=== PATIENT | female | born 1970 | race African-American/Black ===

== ENCOUNTER 2018-08-24 11:34 | Inpatient (IN) | payer OTHER ==
--- NOTE | 2018-08-24 12:00 | PDOC ---
History of Present Illness - General Chief Complaint: Edema Stated Complaint: SWELLING History Source: Patient - History of Present Illness Initial Comments: 08/24/18 12:18 The patient is a 48 year old female with a PMH of HTN, HLD (stopped taking medication 1-2 months previous), BPD, Opioid abuse (on methadone) who presents to the ED today c/o 1 week h/o swelling. States she first noticed the swelling last week with her R hand and R foot and has subsequently started to spread to her L foot. Extremities are tender to palpation and patient states she feels an aching pain when she moves. No chest pain, shortness of breath, palpitations. No known h/o of hypercoagulability including previous clots or family history of blood clots. No recent travel/immobilization or OCP use States she some L neck swelling 2-3 years previous but can't recall any prescribed treatment. ROS is positive for intermittent sharp L breast pain for the previous 4 months which is being evaluated by her PMD. The patient denies abdominal pain, nausea/vomiting, diarrhea/constipation, dysuria/hematuria, NKDA Social: h/o opoid dependence (on 80 methadone daily), 2 beers daily, denies nicotine PMD: Dr. Haim Ye As per EMR, patient was last evaluated in our ED in 2012 for abdominal pain at which time CT scan showed colitis. Previous neck U/S in 2017 showed L sided enlarged lymph node (2.5 x1.2 cm). Past History - Past Medical History Allergies/Adverse Reactions: Allergies Allergy/AdvReac Type Severity Reaction Status Date / Time No Known Allergies Allergy Verified 08/24/18 11:53 Home Medications: Ambulatory Orders Hydrochlorothiazide [Hctz -] 12.5 mg PO DAILY #0 cap 05/20/13 Methadone [Dolophine -] 70 mg PO DAILY #0 tab.disper 05/20/13 Omeprazole [Prilosec (RX)] 40 mg PO DAILY #0 capsule. 05/20/13 Ranitidine HCl [Zantac] 150 mg PO BID PRN #10 tablet 05/20/13 Simvastatin [Zocor -] 10 mg PO HS #0 tablet 05/20/13 Citalopram Hydrobromide [Celexa -] 20 mg PO DAILY #30 tablet 06/17/18 Quetiapine Fumarate [Seroquel] 100 mg PO DAILY #30 tablet 06/17/18 Quetiapine Fumarate [Seroquel] 300 mg PO HS #30 tablet 06/17/18 hydrOXYzine PAMOATE [Vistaril -] 25 mg PO Q8H PRN #30 capsule 06/17/18 Citalopram Hydrobromide [Celexa -] 20 mg PO DAILY #30 tablet 08/19/18 Quetiapine Fumarate [Seroquel] 100 tab PO HS #90 tablet 08/19/18 Anemia: Yes COPD: No GI Disorders: Yes (gerd) HTN: Yes Hypercholesterolemia: Yes - Surgical History Neurologic Surgery: Yes (R ganglion cyst removed) - Immunization History Immunization Up to Date: Yes - Suicide/Smoking/Psychosocial Hx Smoking History: Never smoked Have you smoked in the past 12 months: Yes Number of Cigarettes Smoked Daily: 10 Hx Alcohol Use: No Drug/Substance Use Hx: No Substance Use Type: Alcohol, Cocaine, Heroin Hx Substance Use Treatment: Yes ([facility], [facility]) Review of Systems - Review of Systems Constitutional: No: Chills, Fever HEENTM: No: Blurred Vision, Recent change in vision, Double Vision Respiratory: No: Cough, Orthopnea, Shortness of Breath, Wheezing Cardiac (ROS): Yes: Edema. No: Chest Pain, Lightheadedness, Palpitations, Syncope ABD/GI: No: Constipated, Diarrhea, Nausea, Vomiting : No: Burning, Dysuria *Physical Exam - Vital Signs Last Vital Signs Temp Pulse Resp BP Pulse Ox 98.1 F 76 17 116/61 99 08/24/18 11:54 08/24/18 11:54 08/24/18 11:54 08/24/18 11:54 08/24/18 11:54 - Physical Exam General Appearance: Yes: Nourished, Obese HEENT: positive: Normal Voice, Hearing Grossly Normal Neck: positive: Trachea midline, Supple Respiratory/Chest: positive: Lungs Clear, Normal Breath Sounds. negative: Labored Respiration, Rapid RR Cardiovascular: positive: S1, S2, Edema (2+ RLE pitting edema, RUE edema with B/ L UE and LE TTP). negative: Murmur Vascular Pulses: Femoral (R): 2+, Femoral (L): 2+ Gastrointestinal/Abdominal: positive: Normal Bowel Sounds, Soft Extremity: positive: Normal Capillary Refill Integumentary: positive: Normal Color, Dry, Warm Neurologic: positive: Fully Oriented, Alert Moderate Sedation - Procedure Monitoring Vital Signs: Procedure Monitoring Vital Signs Temperature 98.1 F 08/24/18 11:54 Pulse Rate 76 08/24/18 11:54 Respiratory Rate 17 08/24/18 11:54 Blood Pressure 116/61 08/24/18 11:54 O2 Sat by Pulse Oximetry (%) 99 08/24/18 11:54 ED Treatment Course - LABORATORY CBC & Chemistry Diagram: 08/24/18 13:09 08/24/18 13:09 Medical Decision Making - Medical Decision Making 08/24/18 12:36 48 year old female c/o ansacara in unilateral UE > LE pattern. H/o lymphadenopathy. VS unremarkable. Mild RUE/RLE edema including RLE pitting edema. Frontal diagnosis: malignancy, r/o DVT, also consider cirrhosis, nephrotic syndrome, consider acute onset CHF (less likely given VS, clinical presentation). Will obtain B/L LE Duplex, RUE Duplex, Basic labs. Reassess. 08/24/18 14:09 CBC unremarkable AST/ALT 2:1 c/w chronic alcoholism Elevated Alk Phos possibly indicative of malignancy BNP mildly elevated (260.5) - non-specific edematous state 08/24/18 16:[address] Nickerson, RUE DVT in lower 1/3 brachial vein 08/24/18 16:27 Lovenox 100 SQ Patient @ CT Case d/w Dr. Pedro (covers for patient's PMD, Dr. Ye) will admit for further evaluation; requests Dr. Barone for oncology 08/24/18 17:19 Patient reassed @ bedside VSS Counseled on plan of care including admission. CT reads pending. *DC/Admit/Observation/Transfer Diagnosis at time of Disposition: Edema - Discharge Dispostion Disposition: HOME Condition at time of disposition: Fair Decision to Admit order: Yes - Referrals - Patient Instructions - Post Discharge Activity
--- NOTE | 2018-08-24 12:23 | PDOC ---
Attending Attestation - HPI HPI: 08/24/18 13:17 The patient is a 48 year old female with a past medical history of HTN, HLD, bipolar disorder, an opioid dependence (on methadone) who presents to the emergency department for evaluation of a 1 week history of swelling in her extremities. Patient reports onset of swelling in right arm and right leg occurred last week, and is currently experiencing swelling in her left arm and foot. Patient endorses pain with movement of her extremities. She reports intermittent episodes of mild chest pain radiating to her back for the last 4 months. Denies shortness of breath, recent travels, headache, and family history of blood clots. Patient endorses EtOH use. - Medical Decision Making 08/24/18 13:17 Documentation prepared by Liam Jerez, acting as dental assistant medical assistant for Nereyda Gilbert MD. <Liam Jerez - Last Filed: 08/24/18 13:27> - Resident Resident Name: Yohan Stillica - ED Attending Attestation I have performed the following: I have examined & evaluated the patient, The case was reviewed & discussed with the resident, I agree w/resident's findings & plan, Exceptions are as noted - Physicial Exam PE: GENERAL: Awake, alert, and fully oriented, in no acute distress HEAD: No signs of trauma EYES: PERRLA, EOMI, sclera anicteric, conjunctiva clear ENT: Auricles normal inspection, hearing grossly normal, nares patent, oropharynx clear without exudates. Moist mucosa NECK: Normal ROM, supple, no lymphadenopathy, JVD, or masses LUNGS: Breath sounds equal, clear to auscultation bilaterally. No wheezes, and no crackles HEART: Regular rate and rhythm, normal S1 and S2, no murmurs, rubs or gallops ABDOMEN: Soft, nontender, normoactive bowel sounds. No guarding, no rebound. No masses EXTREMITIES: RUE and RLE with 3+ pitting edema. LLE and LUE with 1+ pitting edema. Normal range of motion. No clubbing or cyanosis. No cords, erythema. NEUROLOGICAL: Cranial nerves II through XII grossly intact. Normal speech, normal gait. Motor and sensation intact SKIN: Warm, Dry, normal turgor, no rashes or lesions noted. - Medical Decision Making Pt with unusual pattern of edema- starting in the RUE, then the RLE, then now starting to swelling on the L side. Will obtain dopplers to r/o DVT. Suspect that there may be a central malignancy based on the pattern of the swelling and how it developed. Will obtain CT chest/a/p. <Nereyda Gilbert - Last Filed: 08/24/18 16:20>
[2018-08-24 13:23] LABS: BASO % 2.7 % (0-2.0); EOS % 0.8 % (0-4.5); HEMATOCRIT 37.9 % (32.4-45.2); HEMOGLOBIN 12.1 GM/dL (10.7-15.3); LYMPH % 34.9 % (8-40); MCH 31.7 pg (25.7-33.7); MEAN PLT VOLUME 8.8 fl (7.5-11.1); MONO % 6.3 % (3.8-10.2); NEUT % 55.3 % (42.8-82.8); PLATELET COUNT 215 K/MM3 (134-434); RBC 3.83 M/mm3 (3.60-5.2); RDW 17.5 % (11.6-15.6)
[2018-08-24 13:41] LABS: INR 1.12 (0.83-1.09); PROTHROMBIN TIME (PATIENT) 13.2 SEC (9.7-13.0)
[2018-08-24 13:44] LABS: ACTIVATED PTT 28.5 SECONDS (25.2-36.5)
[2018-08-24 14:03] LABS: ALBUMIN 2.8 g/dl (3.4-5.0); ALK PHOS 770 U/L (45-117); ANION GAP 10 MMOL/L (8-16); BILIRUBIN,TOTAL 1.5 mg/dL (0.2-1); BLOOD UREA NITROGEN 17 mg/dL (7-18); CALCIUM 7.8 mg/dL (8.5-10.1); CHLORIDE 99 mmol/L (98-107); CO2 27 mmol/L (21-32); CREATININE 1.2 mg/dL (0.55-1.3); GLUCOSE,RANDOM 106 mg/dL (74-106); POTASSIUM 3.6 mmol/L (3.5-5.1); SGOT/AST 352 U/L (15-37); SGPT/ALT 198 U/L (13-61); SODIUM 136 mmol/L (136-145); TOT PROT 6.9 g/dl (6.4-8.2)
[2018-08-24 16:48] LABS: N-TERMINAL BNP 260.5 pg/ml (5-125)
[2018-08-24] MEDS ORDERED: ENOXAPARIN NA (PORCINE) 100 MG/1 ML DISP.SYRIN SQ ONE ×2 (18:03→18:13)
[2018-08-24] MEDS ORDERED: ENOXAPARIN NA (PORCINE) 100 MG/1 ML DISP.SYRIN SQ SCH (22:00)
[2018-08-25 02:55] VITALS: BMI 38.7
[2018-08-25] MEDS ORDERED: HEPARIN NA (PORCINE) 5,000 UNITS/ML 1ML VIAL SQ SCH (10:00)
[2018-08-25] MEDS ORDERED: PANTOPRAZOLE 40 MG TABLET (FP) PO SCH (10:00)
[2018-08-25] MEDS ORDERED: METHADONE HCL 40 MG DISPERSABLE TABLET PO SCH (10:00)
[2018-08-25] MEDS: HYDROCHLOROTHIAZIDE 12.5 MG CAPSULE (FP) PO SCH (10:28)
[2018-08-25] MEDS: CITALOPRAM HYDROBROMIDE 20 MG TABLET (FP) PO SCH (10:28)
[2018-08-25] MEDS: QUEtiapine FUMARATE 100 MG TABLET (FP) PO SCH (10:30)
[2018-08-25] MEDS: ENOXAPARIN NA (PORCINE) 100 MG/1 ML DISP.SYRIN SQ SCH ×2 (11:06→21:53)
[2018-08-25] MEDS ORDERED: METHADONE HCL 10 MG TABLET PO SCH (13:45)
--- NOTE | 2018-08-25 14:10 | HP ---
Admitting History and Physical - Admission History of Present Illness: Pt is a 48 year old female with a PMH of HTN, HLD (stopped taking medication 1- 2 months previous), BPD, Opioid abuse (on methadone) who presents to the ED today c/o 1 week h/o swelling of her extremities. States she first noticed the swelling last week with her R hand and R foot and has subsequently started to spread to her L foot. Extremities are tender to palpation and patient states she feels an aching pain when she moves. No chest pain, shortness of breath, palpitations. Pt also admits to drinking 4-5 beers every night. - Past Medical History [employer]: Yes: CVA, Dementia, Migraine, Multiple Sclerosis, Parkinson's, Seizure, Syncope, TIA, Vertigo, Other Cardiovascular: Yes: HTN Gastrointestinal: Yes: GERD ...LMP: 03/30/12 ...: No Heme/Onc: Yes: Anemia Musculoskeletal: Yes: Chronic low back pain - Smoking History Smoking history: Current every day smoker Have you smoked in the past 12 months: Yes Aproximately how many cigarettes per day: 10 - Alcohol/Substance Use Hx Alcohol Use: Yes History of Substance Use: reports: Cocaine, Heroin Home Medications - Allergies Allergies/Adverse Reactions: Allergies Allergy/AdvReac Type Severity Reaction Status Date / Time No Known Allergies Allergy Verified 08/24/18 11:53 - Home Medications Home Medications: Ambulatory Orders Hydrochlorothiazide [Hctz -] 12.5 mg PO DAILY #0 cap 05/20/13 Methadone [Dolophine -] 70 mg PO DAILY #0 tab.disper 05/20/13 Omeprazole [Prilosec (RX)] 40 mg PO DAILY #0 capsule. 05/20/13 Ranitidine HCl [Zantac] 150 mg PO BID PRN #10 tablet 05/20/13 Simvastatin [Zocor -] 10 mg PO HS #0 tablet 05/20/13 Citalopram Hydrobromide [Celexa -] 20 mg PO DAILY #30 tablet 06/17/18 Quetiapine Fumarate [Seroquel] 100 mg PO DAILY #30 tablet 06/17/18 Quetiapine Fumarate [Seroquel] 300 mg PO HS #30 tablet 06/17/18 hydrOXYzine PAMOATE [Vistaril -] 25 mg PO Q8H PRN #30 capsule 06/17/18 Citalopram Hydrobromide [Celexa -] 20 mg PO DAILY #30 tablet 08/19/18 Quetiapine Fumarate [Seroquel] 100 tab PO HS #90 tablet 08/19/18 Family Disease History - Family Disease History Family History: Unremarkable Review of Systems - Review of Systems Constitutional: reports: No Symptoms Eyes: reports: No Symptoms HENT: reports: No Symptoms Neck: reports: No Symptoms Cardiovascular: reports: No Symptoms Respiratory: reports: No Symptoms Gastrointestinal: reports: No Symptoms Physical Examination Vital Signs: Vital Signs Temperature 98.1 F 08/25/18 10:00 Pulse Rate 81 08/25/18 10:00 Respiratory Rate 20 08/25/18 10:00 Blood Pressure 102/50 L 08/25/18 10:00 O2 Sat by Pulse Oximetry (%) 98 08/25/18 09:00 Constitutional: Yes: Well Nourished HENT: Yes: WNL Neck: Yes: WNL, Supple Cardiovascular: Yes: WNL, Regular Rate and Rhythm Respiratory: Yes: WNL, Regular, CTA Bilaterally Gastrointestinal: Yes: WNL, Normal Bowel Sounds, Soft Edema: RUE: 1+, LLE: Trace, RLE: Trace Neurological: Yes: WNL, Alert, Oriented ...Motor Strength: WNL Labs: CBC, BMP 08/24/18 13:09 08/24/18 13:09 Problem List - Problems (1) Deep vein thrombosis (DVT) of right upper extremity Assessment/Plan: DVT of RUE Cont lovenox Heme consult CT scan chest/abd/pelvis was negative for any malignant pathology Code(s): I82.621 - ACUTE EMBOLISM AND THROMBOSIS OF DEEP VEINS OF R UP EXTREM (2) Edema Assessment/Plan: Cardio/vascular consults Check echo Cont Hctz Code(s): R60.9 - EDEMA, UNSPECIFIED (3) Elevated LFTs Assessment/Plan: ?Alcoholic hepatitis Long d/w pt about etoh abstinence Cont to trend LFT's US abdomen Code(s): R94.5 - ABNORMAL RESULTS OF LIVER FUNCTION STUDIES (4) Opioid dependence Assessment/Plan: Cont methadone Code(s): F11.20 - OPIOID DEPENDENCE, UNCOMPLICATED
[2018-08-25] MEDS ORDERED: METHADONE HCL 40 MG DISPERSABLE TABLET ONE (14:11)
[2018-08-25] MEDS ORDERED: METHADONE HCL 10 MG TABLET ONE (14:11)
[2018-08-25] MEDS: METHADONE 80 MG, METHADONE 10 MG PO SCH (14:13)
--- NOTE | 2018-08-25 17:17 | EKG ---
Test Reason : Blood Pressure : / mmHG Vent. Rate : 077 BPM Atrial Rate : 077 BPM P-R Int : 138 ms QRS Dur : 092 ms QT Int : 416 ms P-R-T Axes : 051 000 042 degrees QTc Int : 470 ms NORMAL SINUS RHYTHM NORMAL ECG WHEN COMPARED WITH ECG OF 04-MAY-2013 11:12, NO SIGNIFICANT CHANGE WAS FOUND Confirmed by MD DRU, AGATA ([id number]) on 08/25/2018 5:17:09 PM Referred By: Confirmed By:AGATA GONSALES MD
--- NOTE | 2018-08-25 17:43 | CONSULT ---
Consult Consult Specialty:: Vascular Surgery Reason for Consultation:: Swelling in all four limbs. Now with right arm DVT. - History Source Limitations to Obtaining History: No Limitations - Past Medical History [employer]: Yes: CVA, Dementia, Migraine, Multiple Sclerosis, Parkinson's, Seizure, Syncope, TIA, Vertigo, Other Cardio/Vascular: Yes: HTN Gastrointestinal: Yes: GERD ...LMP: 03/30/12 ...: No Musculoskeletal: Yes: Chronic low back pain Additional Medical History: CHRONIC BACK PAIN - Alcohol/Substance Use Hx Alcohol Use: Yes History of Substance Use: reports: Cocaine, Heroin - Smoking History Smoking history: Current every day smoker Have you smoked in the past 12 months: Yes Aproximately how many cigarettes per day: 10 Home Medications - Allergies Allergies/Adverse Reactions: Allergies Allergy/AdvReac Type Severity Reaction Status Date / Time No Known Allergies Allergy Verified 08/24/18 11:53 - Home Medications Home Medications: Ambulatory Orders Hydrochlorothiazide [Hctz -] 12.5 mg PO DAILY #0 cap 05/20/13 Methadone [Dolophine -] 70 mg PO DAILY #0 tab.disper 05/20/13 Omeprazole [Prilosec (RX)] 40 mg PO DAILY #0 capsule. 05/20/13 Ranitidine HCl [Zantac] 150 mg PO BID PRN #10 tablet 05/20/13 Simvastatin [Zocor -] 10 mg PO HS #0 tablet 05/20/13 Citalopram Hydrobromide [Celexa -] 20 mg PO DAILY #30 tablet 06/17/18 Quetiapine Fumarate [Seroquel] 100 mg PO DAILY #30 tablet 06/17/18 Quetiapine Fumarate [Seroquel] 300 mg PO HS #30 tablet 06/17/18 hydrOXYzine PAMOATE [Vistaril -] 25 mg PO Q8H PRN #30 capsule 06/17/18 Citalopram Hydrobromide [Celexa -] 20 mg PO DAILY #30 tablet 08/19/18 Quetiapine Fumarate [Seroquel] 100 tab PO HS #90 tablet 08/19/18 Review of Systems - Review of Systems Constitutional: reports: No Symptoms Eyes: reports: No Symptoms HENT: reports: No Symptoms Neck: reports: No Symptoms Cardiovascular: reports: No Symptoms Respiratory: reports: No Symptoms Gastrointestinal: reports: No Symptoms Genitourinary: reports: No Symptoms Musculoskeletal: reports: No Symptoms Integumentary: reports: No Symptoms Neurological: reports: No Symptoms Endocrine: reports: No Symptoms Hematology/Lymphatic: reports: No Symptoms Psychiatric: reports: No Symptoms Physical Exam Vital Signs: Vital Signs Temperature 98.2 F 08/25/18 17:11 Pulse Rate 68 08/25/18 17:11 Respiratory Rate 20 08/25/18 17:11 Blood Pressure 90/55 L 08/25/18 17:11 O2 Sat by Pulse Oximetry (%) 98 08/25/18 09:00 Constitutional: Yes: Well Nourished, No Distress, Calm Eyes: Yes: WNL, Conjunctiva Clear, EOM Intact HENT: Yes: WNL, Atraumatic, Normocephalic Neck: Yes: WNL, Supple, Trachea Midline Cardiovascular: Yes: WNL, Regular Rate and Rhythm Respiratory: Yes: WNL, Regular, CTA Bilaterally Gastrointestinal: Yes: WNL, Normal Bowel Sounds ...Rectal Exam: Yes: WNL Renal/: Yes: WNL Breast(s): Yes: WNL Musculoskeletal: Yes: WNL Extremities: Yes: WNL Edema: Yes Peripheral Pulses WNL: Yes Integumentary: Yes: WNL Neurological: Yes: WNL, Alert, Oriented ...Motor Strength: WNL Psychiatric: Yes: WNL Labs: CBC, BMP 08/24/18 13:09 08/24/18 13:09 Problem List - Problems (1) Deep vein thrombosis (DVT) of right upper extremity Assessment/Plan: Pt seen and examined. Bilateral lower extremities with mild swelling. Good pulses. Right arm brachial vein DVT on US. Anticoagulation for three months. Pt can follow up as outpt in vascular clinic to check lower extremity veins for reflux. Pt given card to follow up with phone ariel. Anthony Limon DO Code(s): I82.621 - ACUTE EMBOLISM AND THROMBOSIS OF DEEP VEINS OF R UP EXTREM
--- NOTE | 2018-08-25 18:31 | CONSULT ---
Consult Consult Specialty:: Hematology/oncology Referred by:: Dr. 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 No: CVA, Dementia, Migraine, Multiple Sclerosis, Peripheral Neuropathy, Parkinson's, Seizure, Syncope, TIA, Vertigo Cardio/Vascular: Yes: HTN Gastrointestinal: Yes: GERD ...LMP Comment: irregular periods x several yrs ...: No ...: 0 ...Para: 0 Psych: Yes: Anxiety Musculoskeletal: No: Chronic low back pain, Hemiparesis, Hemiplegia, Osteoarthritis Additional Medical History: CHRONIC BACK PAIN - Past Surgical History Additional Surgical History: ganglion cyst removal right hand - Alcohol/Substance Use Hx Alcohol Use: Yes (3 beers daily) Number of Drinks Daily: 3 History of Substance Use: reports: Cocaine, Heroin - Smoking History Smoking history: Current every day smoker Have you smoked in the past 12 months: Yes Aproximately how many cigarettes per day: 5 - Social History Usual Living Arrangement: With Spouse Occupation: not working Home Medications - Allergies Allergies/Adverse Reactions: Allergies Allergy/AdvReac Type Severity Reaction Status Date / Time No Known Allergies Allergy Verified 08/24/18 11:53 - Home Medications Home Medications: Ambulatory Orders Hydrochlorothiazide [Hctz -] 12.5 mg PO DAILY #0 cap 05/20/13 Methadone [Dolophine -] 70 mg PO DAILY #0 tab.disper 05/20/13 Omeprazole [Prilosec (RX)] 40 mg PO DAILY #0 capsule. 05/20/13 Ranitidine HCl [Zantac] 150 mg PO BID PRN #10 tablet 05/20/13 Simvastatin [Zocor -] 10 mg PO HS #0 tablet 05/20/13 Citalopram Hydrobromide [Celexa -] 20 mg PO DAILY #30 tablet 06/17/18 Quetiapine Fumarate [Seroquel] 100 mg PO DAILY #30 tablet 06/17/18 Quetiapine Fumarate [Seroquel] 300 mg PO HS #30 tablet 06/17/18 hydrOXYzine PAMOATE [Vistaril -] 25 mg PO Q8H PRN #30 capsule 06/17/18 Citalopram Hydrobromide [Celexa -] 20 mg PO DAILY #30 tablet 08/19/18 Quetiapine Fumarate [Seroquel] 100 tab PO HS #90 tablet 08/19/18 Family Disease History - Family Disease History Family Disease History: Heart Disease: Mother, Other: Grandparent (MGF- throat ca ), Father (gunshot ) Review of Systems - Review of Systems Constitutional: denies: Chills, Fever, Night Sweats Eyes: denies: Blurred Vision, Double Vision, Photophobia HENT: reports: Difficult Swallowing, Throat Pain. denies: Epistaxis, Hearing Loss Neck: denies: Stiffness, Swollen Glands, Tenderness Cardiovascular: denies: Chest Pain, Palpitations, Shortness of Breath Respiratory: denies: SOB, SOB on Exertion, Wheezing Gastrointestinal: reports: Constipation. denies: Diarrhea, Nausea, Vomiting Genitourinary: denies: Burning, Dysuria Breasts: reports: No Symptoms Reported, Other (recent mammography reportedly negative) Musculoskeletal: reports: Extremity Pain Integumentary: reports: No Symptoms Endocrine: reports: No Symptoms Hematology/Lymphatic: denies: Easily Bruised, Excessive Bleeding, Swollen Glands Psychiatric: reports: Anxiety Physical Exam Vital Signs: Vital Signs Temperature 98.2 F 08/25/18 17:11 Pulse Rate 68 08/25/18 17:11 Respiratory Rate 20 08/25/18 17:11 Blood Pressure 90/55 L 08/25/18 17:11 O2 Sat by Pulse Oximetry (%) 98 08/25/18 09:00 Constitutional: Yes: No Distress Eyes: Yes: PERRL. No: Ptosis, Sclera Icterus HENT: Yes: Normocephalic, Thrush, Other (thrush). No: Hoarseness, Pharyngeal Erythema Neck: Yes: Supple, Trachea Midline. No: Lymphadenopathy, Tenderness, Thyromegaly Cardiovascular: Yes: Regular Rate and Rhythm Respiratory: Yes: Regular Gastrointestinal: Yes: Normal Bowel Sounds, Soft. No: Hepatomegaly, Splenomegaly Renal/: No: CVA Tenderness - Left, CVA Tenderness - Right Breast(s): Yes: WNL, Left, Right Musculoskeletal: No: Back Pain, Muscle Pain Extremities: No: Calf Tenderness Edema: Yes Edema: RUE: 1+, LLE: 1+, RLE: 1+ Integumentary: No: Bruising, Venous Stasis Changes Neurological: Yes: WNL ...Motor Strength: WNL Psychiatric: Yes: WNL Labs: CBC, BMP 08/24/18 13:09 08/24/18 13:09 Imaging - Results Cat Scan: Report Reviewed Ultrasound: Report Reviewed Problem List - Problems (1) Deep vein thrombosis (DVT) of right upper extremity Assessment/Plan: DVT - RUE brachial vein. CT chest abdomen and pelvis - no malignancy--atelectasis- RML, coronary calcification , hepatomegaly States had EGD and Colonoscopy within previous year and mammogram within past year- all unremarkable. No control . No RUE trauma. No family history of blood clots, strokes, pulmonary emboli. RUE DVT in brachial vein. A/C for 3 months reasonable. Malignancy work up Thrombophilia work up Code(s): I82.621 - ACUTE EMBOLISM AND THROMBOSIS OF DEEP VEINS OF R UP EXTREM
--- NOTE | 2018-08-25 18:41 | CON.CARD ---
Consult Consult Specialty:: Cardiology Referred by:: Dr. Pedro Reason for Consultation:: DVT - History of Present Illness Chief Complaint: Diffuse edema History of Present Illness: 48 F, on methadone, hx HTN presented to ER with diffuse edema of arms and legs. LE edema and right hand edema for several days. Found to have RUE DVT on US. She denies immobilization, trauma. Chronic TOVAR for at least several months. Atypical fleeting chest pain lasting seconds, related to positional change. No CP w/ exertion. No palpitations. No PND or orthopnea. Has been seen by Vascular and Heme. - History Source History Provided By: Patient, Medical Record - Past Medical History HUMAN RESOURCES INTERN: No: CVA, Dementia, Migraine, Multiple Sclerosis, Peripheral Neuropathy, Parkinson's, Seizure, Syncope, TIA, Vertigo Cardio/Vascular: Yes: HTN, Hyperlipdemia Gastrointestinal: Yes: GERD Hepatobiliary: Yes: Other (fatty liver) ...LMP: 03/30/12 ...LMP Comment: irregular periods x several yrs ...: No Psych: Yes: Anxiety Musculoskeletal: No: Chronic low back pain, Hemiparesis, Hemiplegia, Osteoarthritis Additional Medical History: CHRONIC BACK PAIN - Past Surgical History Additional Surgical History: ganglion cyst removal right hand - Alcohol/Substance Use Hx Alcohol Use: Yes (3 beers daily) Number of Drinks Daily: 3 History of Substance Use: reports: Cocaine, Heroin - Smoking History Smoking history: Current every day smoker Have you smoked in the past 12 months: Yes Aproximately how many cigarettes per day: 5 - Social History Usual Living Arrangement: With Spouse Occupation: not working History of Recent Travel: No Home Medications - Allergies Allergies/Adverse Reactions: Allergies Allergy/AdvReac Type Severity Reaction Status Date / Time No Known Allergies Allergy Verified 08/24/18 11:53 - Home Medications Home Medications: Ambulatory Orders Hydrochlorothiazide [Hctz -] 12.5 mg PO DAILY #0 cap 05/20/13 Methadone [Dolophine -] 70 mg PO DAILY #0 tab.disper 05/20/13 Omeprazole [Prilosec (RX)] 40 mg PO DAILY #0 capsule. 05/20/13 Ranitidine HCl [Zantac] 150 mg PO BID PRN #10 tablet 05/20/13 Simvastatin [Zocor -] 10 mg PO HS #0 tablet 12/05/13 Citalopram Hydrobromide [Celexa -] 20 mg PO DAILY #30 tablet 06/17/18 Quetiapine Fumarate [Seroquel] 100 mg PO DAILY #30 tablet 06/17/18 Quetiapine Fumarate [Seroquel] 300 mg PO HS #30 tablet 06/17/18 hydrOXYzine PAMOATE [Vistaril -] 25 mg PO Q8H PRN #30 capsule 06/17/18 Citalopram Hydrobromide [Celexa -] 20 mg PO DAILY #30 tablet 08/19/18 Quetiapine Fumarate [Seroquel] 100 tab PO HS #90 tablet 08/19/18 Family Disease History - Family Disease History Family Disease History: Heart Disease: Mother, Other: Grandparent (MGF- throat ca ), Father (gunshot ) Review of Systems Findings/Remarks: he patient is a 48 year old female with a PMH of HTN, HLD (stopped taking medication 1-2 months previous), BPD, Opioid abuse (on methadone) who presents to the ED today c/o 1 week h/o swelling. States she first noticed the swelling last week with her R hand and R foot and has subsequently started to spread to her L foot. Extremities are tender to palpation and patient states she feels an aching pain when she moves. No chest pain, shortness of breath, palpitations. No known h/o of hypercoagulability including previous clots or family history of blood clots. No recent travel/immobilization or OCP use States she some L neck swelling 2-3 years previous but can't recall any prescribed treatment. ROS is positive for intermittent sharp L breast pain for the previous 4 months which is being evaluated by her PMD. The patient denies abdominal pain, nausea/vomiting, diarrhea/constipation, dysuria/hematuria, - Review of Systems Constitutional: reports: No Symptoms Cardiovascular: reports: Edema Respiratory: reports: Exercise Intolerance Gastrointestinal: denies: No Symptoms, Abdominal Pain, Bloating, Constipation, Diarrhea, Dysphagia, Indigestion, Melena, Nausea, Rectal Bleeding, Vomiting, Vomiting Blood, Other Genitourinary: denies: No Symptoms, Burning, Discharge, Dysuria, Flank Pain, Frequency, Hematuria, Incontinence, Lesions, Menses, Pain, Testicular Mass, Testicular Pain, Testicular Swelling, Urgency, Vaginal Bleeding, Other Breasts: denies: No Symptoms Reported, See HPI, Breast Implants, Discharge from Nipple, Lumps, Pain, Skin Changes, Other Musculoskeletal: denies: No Symptoms, Back Pain, Crepitus, Decreased ROM, Extremity Pain, Joint Pain, Joint Swelling, Muscle Pain, Muscle Cramps, Muscle Weakness, Other Integumentary: denies: No Symptoms, Blister, Bruising, Change in Color, Eczema, Erythema, Incision, Lesions, Lump, Pallor, Pruritis, Rash, Wound, Other Neurological: denies: No Symptoms, Change in LOC, Change in Speech, Confusion, Dizziness, Headache, Incoordination, Numbness, Parasthesia, Pre-Existing Deficit , Seizure, Syncope, Tremors, Unsteady Gait, Weakness, Other Endocrine: denies: No Symptoms, Excessive Sweating, Flushing, Increased Hunger, Increased Thirst, Intolerance to Cold, Intolerance to Heat, Unexplained Weight Gain, Unexplained Weight Loss, Other Hematology/Lymphatic: denies: No Symptoms, Easily Bruised, Excessive Bleeding, Swollen Glands, Other Psychiatric: denies: No Symptoms, Altered Sleep Pattern, Anxiety, Depression, Hallucinations, Panic, Paranoia, Suicidal, Other - Risk Factors Known Risk Factors: Yes: Hypercholesterolemia, Hypertension, Smoking Vital Signs: Vital Signs Temperature 98.2 F 08/25/18 17:11 Pulse Rate 68 08/25/18 17:11 Respiratory Rate 20 08/25/18 17:11 Blood Pressure 90/55 L 08/25/18 17:11 O2 Sat by Pulse Oximetry (%) 98 08/25/18 09:00 Constitutional: Yes: No Distress, Calm Eyes: Yes: Conjunctiva Clear, EOM Intact HENT: Yes: Atraumatic, Normocephalic Neck: Yes: Trachea Midline Respiratory: Yes: CTA Bilaterally Gastrointestinal: Yes: Soft, Abdomen, Obese Cardiovascular: Yes: Regular Rate and Rhythm JVD: No Carotid Bruit: No PMI: Non-Displaced Heart Sounds: Yes: S1, S2 Edema: Yes Edema: RUE: 1+, LLE: Trace, RLE: Trace Peripheral Pulses WNL: Yes Neurological: Yes: Alert, Oriented ...Motor Strength: WNL - Other Data Labs, Other Data: CBC, BMP 08/24/18 13:09 08/24/18 13:09 INR, PTT INR 1.12 (0.83-1.09) H 08/24/18 13:09 NSR, NSST changes Imaging - Results Cat Scan: Report Reviewed Ultrasound: Report Reviewed EKG: Image Reviewed Assessment/Plan IMP: Upper extremity DVT History of HTN History of HLD with fatty liver Obesity Methadone maintenance REC: 1. Continued AC as per Heme and Vascular. Can likely convert to NOAC prior to discharge. 2. Etiology of the DVT not entirely clear, possibly related to opiate use; Heme evaluation pending. 3. Echocardiogram for RV/LV assessment and for assessment of PA pressure- low suspicion for pulmonary embolism (normal O2 sat and absence of tachycardia). 4. Fatty liver on imaging, low dose statin being used. Follow LFTS, will need GI follow up. 5. ECG with borderline QTc (Methadone); will repeat in AM.
[2018-08-25] MEDS ORDERED: QUEtiapine FUMARATE 100 MG TABLET (FP) ONE (20:54)
[2018-08-25] MEDS: ATORVASTATIN CA 10 MG TABLET (FP) PO SCH (21:54)
[2018-08-25] MEDS: QUEtiapine FUMARATE 300 MG TABLET PO SCH (21:54)
[2018-08-25] MEDS: NYSTATIN 500,000 UNITS TABLET PO SCH (21:55)
[2018-08-25] MEDS: DOCUSATE SODIUM 100 MG CAPSULE (FP) PO SCH (21:55)
[2018-08-25 21:56] LABS: MCH 32.5 pg (25.7-33.7)
[2018-08-25 22:06] LABS: BASO % 0.7 % (0-2.0); EOS % 2.5 % (0-4.5); HEMATOCRIT 33.2 % (32.4-45.2); HEMOGLOBIN 10.9 GM/dL (10.7-15.3); LYMPH % 50.7 % (8-40); MEAN CELL VOLUME 98.6 fl (80-96); MEAN PLT VOLUME 10.2 fl (7.5-11.1); MONO % 6.5 % (3.8-10.2); NEUT % 39.6 % (42.8-82.8); PLATELET COUNT 156 K/MM3 (134-434); RBC 3.36 M/mm3 (3.60-5.2); RDW 16.8 % (11.6-15.6); WHITE BLOOD COUNT 5.4 K/mm3 (4.0-10.0)
[2018-08-25 22:32] LABS: ALBUMIN 2.5 g/dl (3.4-5.0); ALK PHOS 681 U/L (45-117); ANION GAP 9 MMOL/L (8-16); BILIRUBIN,TOTAL 1.4 mg/dL (0.2-1); BLOOD UREA NITROGEN 9 mg/dL (7-18); CALCIUM 7.8 mg/dL (8.5-10.1); CHLORIDE 102 mmol/L (98-107); CO2 28 mmol/L (21-32); GLUCOSE,RANDOM 112 mg/dL (74-106); POTASSIUM 3.3 mmol/L (3.5-5.1); SGOT/AST 443 U/L (15-37); SGPT/ALT 227 U/L (13-61); SODIUM 139 mmol/L (136-145); TOT PROT 6.3 g/dl (6.4-8.2)
[2018-08-26] MEDS ORDERED: METHADONE HCL 40 MG DISPERSABLE TABLET ONE ×2 (05:40→10:29)
[2018-08-26] MEDS ORDERED: METHADONE HCL 10 MG TABLET ONE ×2 (05:40→10:29)
[2018-08-26] MEDS: METHADONE 80 MG, METHADONE 10 MG PO SCH ×2 (05:56→10:34)
[2018-08-26 07:13] LABS: BASO % 0.7 % (0-2.0); HEMATOCRIT 31.1 % (32.4-45.2); HEMOGLOBIN 10.1 GM/dL (10.7-15.3); LYMPH % 55.3 % (8-40); MCH 31.7 pg (25.7-33.7); MCHC 32.4 g/dl (32.0-36.0); MEAN CELL VOLUME 97.9 fl (80-96); MEAN PLT VOLUME 8.9 fl (7.5-11.1); MONO % 6.8 % (3.8-10.2); NEUT % 35.2 % (42.8-82.8); PLATELET COUNT 165 K/MM3 (134-434); RBC 3.18 M/mm3 (3.60-5.2); WHITE BLOOD COUNT 5.4 K/mm3 (4.0-10.0)
[2018-08-26] MEDS: DOCUSATE SODIUM 100 MG CAPSULE (FP) PO SCH ×3 (07:36→22:28)
[2018-08-26 07:44] LABS: ALBUMIN 2.3 g/dl (3.4-5.0); ALK PHOS 593 U/L (45-117); ANION GAP 6 MMOL/L (8-16); BILIRUBIN,TOTAL 1.4 mg/dL (0.2-1); BLOOD UREA NITROGEN 8 mg/dL (7-18); CALCIUM 7.5 mg/dL (8.5-10.1); CHLORIDE 100 mmol/L (98-107); CO2 30 mmol/L (21-32); CREATININE 0.8 mg/dL (0.55-1.3); GLUCOSE,RANDOM 95 mg/dL (74-106); SGOT/AST 342 U/L (15-37); SGPT/ALT 207 U/L (13-61); SODIUM 137 mmol/L (136-145); TOT PROT 5.9 g/dl (6.4-8.2)
--- NOTE | 2018-08-26 08:45 | CON.GI ---
Consult Consult Specialty:: GI Referred by:: Dr. Pedro Reason for Consultation:: Elevated LFTs - History of Present Illness Chief Complaint: Elevated LFTs History of Present Illness: Patient is a 48 y/o female with past medical history of HLD, HTN, BPD, Opioid abuse (on Methadone). I was consulted to see the patient due to elevated LFTs. On admission lab works shows severely elevated LFTs. Abdominal and Pelvic CT scan show diffuse fatty infiltration of liver with no obvious mass lesion. Patient in past was taking a statin for HLD but states she has not taken it in awhile. She admits to chronic alcohol use with drinking 2-3 24oz cans of beer a day for "many years". Patient complains of experiencing dysphagia with both solids and liquids, last endoscopy as per patient 1 year ago. She cannot remember the doctors name but says the results were "fine". She states experiencing heartburn accompanied with early satiety and 2-3 episodes of vomiting prior to presenting to ER. Patient complains of constipation with incomplete evacuation with last BM 2 weeks ago. Over 3 months patient states she has lost 15lbs. Denies rectal bleeding, melena, blood in stool. 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: Yes: CVA, Dementia, Migraine, Multiple Sclerosis, Parkinson's, Seizure, Syncope, TIA, Vertigo, Other Cardio/Vascular: Yes: HTN Gastrointestinal: Yes: GERD Hepatobiliary: Yes: Other (fatty liver) ...LMP: 03/30/12 ...LMP Comment: irregular periods x several yrs ...: No Psych: Yes: Anxiety Musculoskeletal: Yes: Chronic low back pain Additional Medical History: CHRONIC BACK PAIN - Past Surgical History Past Surgical History: Yes: Colonoscopy (2-3 yrs ago as per pt) Additional Surgical History: ganglion cyst removal right hand - Alcohol/Substance Use Hx Alcohol Use: Yes Number of Drinks Daily: 3 History of Substance Use: reports: Cocaine, Heroin - Smoking History Smoking history: Current every day smoker Have you smoked in the past 12 months: Yes Aproximately how many cigarettes per day: 10 - Social History Usual Living Arrangement: With Spouse Occupation: not working History of Recent Travel: No Home Medications - Allergies Allergies/Adverse Reactions: Allergies Allergy/AdvReac Type Severity Reaction Status Date / Time No Known Allergies Allergy Verified 08/24/18 11:53 - Home Medications Home Medications: Ambulatory Orders Hydrochlorothiazide [Hctz -] 12.5 mg PO DAILY #0 cap 05/20/13 Methadone [Dolophine -] 70 mg PO DAILY #0 tab.disper 05/20/13 Omeprazole [Prilosec (RX)] 40 mg PO DAILY #0 capsule. 05/20/13 Ranitidine HCl [Zantac] 150 mg PO BID PRN #10 tablet 05/20/13 Simvastatin [Zocor -] 10 mg PO HS #0 tablet 05/20/13 Citalopram Hydrobromide [Celexa -] 20 mg PO DAILY #30 tablet 06/17/18 Quetiapine Fumarate [Seroquel] 100 mg PO DAILY #30 tablet 06/17/18 Quetiapine Fumarate [Seroquel] 300 mg PO HS #30 tablet 06/17/18 hydrOXYzine PAMOATE [Vistaril -] 25 mg PO Q8H PRN #30 capsule 06/17/18 Citalopram Hydrobromide [Celexa -] 20 mg PO DAILY #30 tablet 08/19/18 Quetiapine Fumarate [Seroquel] 100 tab PO HS #90 tablet 08/19/18 Family Disease History - Family Disease History Family Disease History: Heart Disease: Mother, Other: Grandparent (MGF- throat ca ), Father (gunshot ) Review of Systems - Review of Systems Constitutional: reports: No Symptoms Eyes: reports: No Symptoms HENT: reports: No Symptoms Neck: reports: No Symptoms Cardiovascular: reports: Chest Pain Respiratory: reports: No Symptoms Gastrointestinal: reports: Constipation, Dysphagia, Vomiting, Other (heart burn) Genitourinary: reports: No Symptoms Breasts: reports: No Symptoms Reported Musculoskeletal: reports: No Symptoms Integumentary: reports: No Symptoms Neurological: reports: No Symptoms Endocrine: reports: No Symptoms Hematology/Lymphatic: reports: No Symptoms Psychiatric: reports: No Symptoms Physical Exam-GI Vital Signs: Vital Signs Temperature 98.1 F 08/26/18 07:08 Pulse Rate 73 08/26/18 07:08 Respiratory Rate 20 08/26/18 07:08 Blood Pressure 125/74 08/26/18 07:08 O2 Sat by Pulse Oximetry (%) 98 08/25/18 21:00 Constitutional: Yes: No Distress, Calm Eyes: Yes: Conjunctiva Clear HENT: Yes: Atraumatic Cardiovascular: Yes: Regular Rate and Rhythm Respiratory: Yes: Regular, CTA Bilaterally Gastrointestinal Inspection: Yes: WNL. No: Ascites, Distention, Hernia, Scars, Other ...Auscultate: Yes: Normoactive Bowel Sounds ...Palpate: Yes: Soft, Tenderness (RUQ, LUQ, LLQ). No: Firm/Rigid, Guarding, Hepatomegaly, Mass, Pulsatile Mass, Splenomegaly, Tenderness, Epigastium, Tenderness, Rebound, Other ...Percussion: Yes: Tympanitic. No: Dullness, Fluid Wave, Other Edema: Yes (RUE and RLE) Neurological: Yes: Alert, Oriented Psychiatric: Yes: Alert, Oriented Labs: CBC, BMP 08/26/18 06:00 08/26/18 06:00 INR, PTT INR 1.12 (0.83-1.09) H 08/24/18 13:09 Active Medications Generic Name Dose Route Start Last Admin Trade Name Gian PRN Reason Stop Dose Admin Atorvastatin Calcium 10 mg 08/25/18 22:00 08/25/18 21:54 Lipitor - PO 10 mg HS ALAN Administration Citalopram Hydrobromide 20 mg 08/25/18 10:00 08/25/18 10:28 Celexa - PO 20 mg DAILY ALAN Administration Docusate Sodium 100 mg 08/25/18 22:00 08/26/18 07:36 Colace - PO Not Given TID ALAN Enoxaparin Sodium 100 mg 08/25/18 10:00 08/25/18 21:53 Lovenox - SQ 100 mg BID ALAN Administration Hydrochlorothiazide 12.5 mg 08/25/18 10:00 08/25/18 10:28 Hctz - PO 12.5 mg DAILY ALAN Administration Methadone HCl 80 mg/ Methadone 90 mg 08/25/18 14:15 08/26/18 05:56 HCl 10 mg PO Not Given 0600 ALAN Nystatin 500,000 unit 08/25/18 22:00 08/25/18 21:55 Nystatin PO 500,000 unit TID ALAN Administration Pantoprazole Sodium 40 mg 08/25/18 10:00 08/25/18 10:28 Protonix - PO 40 mg DAILY ALAN Administration Quetiapine Fumarate 100 mg 08/25/18 10:00 08/25/18 10:30 Seroquel - PO 100 mg DAILY ALAN Administration Quetiapine Fumarate 300 mg 08/25/18 22:00 08/25/18 21:54 Seroquel - PO 300 mg HS ALAN Administration Problem List - Problems (1) Constipation Assessment/Plan: R>start on Relistor 12mg SQ daily Code(s): K59.00 - CONSTIPATION, UNSPECIFIED (2) Elevated LFTs Assessment/Plan: R>Hepatitis A & B panel, Hep C antibody >AFP, CA 125, CA 19-9, CEA >pending results of Abdominal US Code(s): R94.5 - ABNORMAL RESULTS OF LIVER FUNCTION STUDIES (3) Heartburn Assessment/Plan: R> start on Protonix 40mg IVPB BID >NS at 100cc/hr Code(s): R12 - HEARTBURN
[2018-08-26] MEDS ORDERED: POTASSIUM CHLORIDE TABS 20 MEQ TABLET.ER (FP) PO ONE (09:15)
[2018-08-26] MEDS ORDERED: PANTOPRAZOLE SODIUM 40 MG in SODIUM CHLORIDE 100 ML IVPB SCH (10:00)
--- NOTE | 2018-08-26 10:21 | PN ---
Physical Exam: SUBJECTIVE: Patient seen and examined. She has no complaints. OBJECTIVE: Vital Signs Period Temp Pulse Resp BP Sys/Hernandez Pulse Ox Last 24 Hr 98.1 F-98.2 F 68-73 20-20 90-125/55-74 98 GENERAL: The patient is awake, alert, and fully oriented, in no acute distress. LUNGS: Breath sounds equal, clear to auscultation bilaterally, no wheezes, no crackles, no accessory muscle use. HEART: Regular rate and rhythm, S1, S2 without murmur, rub or gallop. ABDOMEN: Obese, soft, nontender, nondistended, normoactive bowel sounds, no guarding, no rebound, no hepatosplenomegaly, no masses. EXTREMITIES: 2+ pulses, warm, well-perfused. Trace edema RLE. RUE swollen. Laboratory Results - last 24 hr 08/25/18 08/25/18 08/26/18 21:30 21:30 06:00 WBC 5.4 5.4 RBC 3.36 L 3.18 L Hgb 10.9 10.1 L Hct 33.2 31.1 L MCV 98.6 H 97.9 H MCH 32.5 31.7 MCHC 33.0 32.4 RDW 16.8 H 17.0 H Plt Count 156 D 165 MPV 10.2 D 8.9 D Absolute Neuts (auto) 2.1 1.9 Neutrophils % 39.6 L D 35.2 L Lymphocytes % 50.7 H D 55.3 H Monocytes % 6.5 6.8 Eosinophils % 2.5 D 2.0 Basophils % 0.7 0.7 Nucleated RBC % 1 H 1 H Sodium 139 Potassium 3.3 L Chloride 102 Carbon Dioxide 28 Anion Gap 9 BUN 9 Creatinine 1.0 Creat Clearance w eGFR 58.93 Random Glucose 112 H Calcium 7.8 L Total Bilirubin 1.4 H AST 443 H ALT 227 H Alkaline Phosphatase 681 H Total Protein 6.3 L Albumin 2.5 L 08/26/18 06:00 WBC RBC Hgb Hct MCV MCH MCHC RDW Plt Count MPV Absolute Neuts (auto) Neutrophils % Lymphocytes % Monocytes % Eosinophils % Basophils % Nucleated RBC % Sodium 137 Potassium 3.0 L Chloride 100 Carbon Dioxide 30 Anion Gap 6 L BUN 8 Creatinine 0.8 Creat Clearance w eGFR > 60 Random Glucose 95 Calcium 7.5 L Total Bilirubin 1.4 H AST 342 H ALT 207 H Alkaline Phosphatase 593 H Total Protein 5.9 L Albumin 2.3 L Active Medications Generic Name Dose Route Start Last Admin Trade Name Gian PRN Reason Stop Dose Admin Atorvastatin Calcium 10 mg 08/25/18 22:00 08/25/18 21:54 Lipitor - PO 10 mg HS ALAN Administration Citalopram Hydrobromide 20 mg 08/25/18 10:00 08/25/18 10:28 Celexa - PO 20 mg DAILY ALAN Administration Docusate Sodium 100 mg 08/25/18 22:00 08/26/18 07:36 Colace - PO Not Given TID ALAN Enoxaparin Sodium 100 mg 08/25/18 10:00 08/25/18 21:53 Lovenox - SQ 100 mg BID AALN Administration Hydrochlorothiazide 12.5 mg 08/25/18 10:00 08/25/18 10:28 Hctz - PO 12.5 mg DAILY ALAN Administration Potassium Chloride 10 meq in 100 mls @ 100 mls/hr 08/26/18 09:30 Potassium Chloride 10 Meq Premix Ivpb - IVPB 08/26/18 12:29 Q60M ALAN Sodium Chloride 1,000 mls @ 100 mls/hr 08/26/18 09:30 Normal Saline - IV ASDIR ALAN Methadone HCl 80 mg/ Methadone 90 mg 08/26/18 09:00 HCl 10 mg PO DAILY@0900 ALAN Methylnaltrexone [place] 12 mg 08/26/18 10:00 Relistor - SQ DAILY ALAN Nystatin 500,000 unit 08/25/18 22:00 08/25/18 21:55 Nystatin PO 500,000 unit TID ALAN Administration Pantoprazole Sodium 40 mg 08/26/18 10:00 Protonix Iv IVPUSH BID ALAN Quetiapine Fumarate 100 mg 08/25/18 10:00 08/25/18 10:30 Seroquel - PO 100 mg DAILY ALAN Administration Quetiapine Fumarate 300 mg 08/25/18 22:00 08/25/18 21:54 Seroquel - PO 300 mg HS ALAN Administration ASSESSMENT/PLAN: 1. DVT of right upper extremity - Currently on Lovenox - No evidence of malignancy - Hematology follow-up 2. Leg edema - No evidence of DVT - Echo pending 3. Hepatic transaminitis - Hepatitis panel, AFP, CA 125, CA 19-9, CEA, RUQ US pending 4. Opioid dependence - Continue Methadone 5. Constipation, opioid induced - Relistor restarted 6. HTN - Continue HCTZ 7. Hyperlipidemia - Continue Lipitor 8. Obesity with BMI 38.8 9. Bipolar disorder - Continue Celexa, Seroquel Visit type - Emergency Visit Emergency Visit: Yes ED Registration Date: 08/24/18 Care time: The patient presented to the Emergency Department on the above date and was hospitalized for further evaluation of their emergent condition. - New Patient This patient is new to me today: Yes Date on this admission: 08/26/18 - Critical Care Critical Care patient: No - Discharge Referral Referred to [facility] No
[2018-08-26] MEDS ORDERED: PT OWN MED DRAWER 7, Y5N ONE ×3 (10:30→22:08)
[2018-08-26] MEDS: CITALOPRAM HYDROBROMIDE 20 MG TABLET (FP) PO SCH (10:35)
[2018-08-26] MEDS: HYDROCHLOROTHIAZIDE 12.5 MG CAPSULE (FP) PO SCH (10:35)
[2018-08-26] MEDS: QUEtiapine FUMARATE 100 MG TABLET (FP) PO SCH (10:37)
[2018-08-26] MEDS: KCL 10 MEQ IVPB 10 MEQ/100 ML INFUS.BAG IVPB SCH ×3 (10:37→13:53)
[2018-08-26] MEDS: PANTOPRAZOLE SODIUM 40 MG VIAL IVPUSH SCH ×2 (10:38→22:30)
[2018-08-26] MEDS: ENOXAPARIN NA (PORCINE) 100 MG/1 ML DISP.SYRIN SQ SCH ×2 (10:38→22:27)
[2018-08-26] MEDS: Methylnaltrexone Bromide 12 MG/0.6 ML KIT SQ SCH (10:39)
[2018-08-26] MEDS: SODIUM CHLORIDE 1,000 ML IV SCH (11:04)
--- NOTE | 2018-08-26 15:49 | ECHO ---
Name: KRISTIE, PATRICK Exam:Adult Echocardiogram Study Date: 08/26/2018 02:18 PM Age: 48 yrs Reason For Study: EF AND RVSP EVALUTION Height: 66 in Weight: 240 lb BSA: 2.2 m2 MMode/2D Measurements & Calculations IVSd: 0.84 cm Ao root diam: 2.4 cm LVIDd: 4.5 cm LA dimension: 3.1 cm LVIDs: 2.9 cm LVPWd: 0.79 cm EDV(Teich): 90.2 ml LVOT diam: 2.1 cm ESV(Teich): 32.0 ml TAPSE: 2.5 cm Doppler Measurements & Calculations MV E max curtis: 83.4 cm/sec Ao V2 max: 138.1 cm/sec MV A max curtis: 101.7 cm/sec Ao max P.6 mmHg MV E/A: 0.82 Ao V2 mean: 87.7 cm/sec MV dec time: 0.22 sec Ao mean P.7 mmHg Ao V2 VTI: 29.9 cm ABI(I,D): 1.3 cm2 ABI(V,D): 2.1 cm2 LV V1 max P.7 mmHg MR max curtis: 295.9 cm/sec LV V1 mean P.89 mmHg MR max P.0 mmHg LV V1 max: 81.8 cm/sec LV V1 mean: 41.2 cm/sec LV V1 VTI: 11.2 cm SV(LVOT): 39.4 ml Med Peak E' Curtis: 9.1 cm/sec Med E/e': 9.2 Lat Peak E' Curtis: 11.2 cm/sec Lat E/e': 7.4 Procedure The study was technically difficult with many images being suboptimal in quality. Left Ventricle The left ventricular size, thickness and function are normal. The left ventricular ejection fraction is normal. E/A reversal consistent with but not diagnostic of poor LV compliance. Regional wall motion abnormalities cannot be excluded due to limited visualization. Right Ventricle The right ventricle is not well visualized. Atria Normal left and right atrial size and function. Mitral Valve The mitral valve is not well visualized. There is no mitral valve stenosis. There is trace mitral regurgitation. Tricuspid Valve The tricuspid valve is not well visualized. There is no tricuspid stenosis. There was insufficient TR detected to calculate RV systolic pressure. Aortic Valve The aortic valve is not well visualized. No hemodynamically significant valvular aortic stenosis. No aortic regurgitation is present. Pulmonic Valve The pulmonic valve is not well visualized. Great Vessels The aortic root is normal size. Pericardium/Pleura There is no pericardial effusion. Interpretation Summary The left ventricular size, thickness and function are normal The left ventricular ejection fraction is normal. Regional wall motion abnormalities cannot be excluded due to limited visualization. E/A reversal consistent with but not diagnostic of poor LV compliance The study was technically difficult with many images being suboptimal in quality. The right ventricle is not well visualized. There was insufficient TR detected to calculate RV systolic pressure. MD Oumar Warren 08/26/2018 03:49 PM
--- NOTE | 2018-08-26 17:43 | PN ---
Progress Note (short form) - Note Progress Note: Patient seen and examined Complains of RUE discomfort Complains of generalized discomfort in all extremities. no chest pains or SOB Last Vital Signs Temp Pulse Resp BP Pulse Ox 97.8 F 86 20 138/93 98 08/26/18 17:15 08/26/18 17:15 08/26/18 17:15 08/26/18 17:15 08/25/18 21:00 Lungs -clear RSR RUE swelling RUQ fullness CBC, BMP 08/26/18 06:00 08/26/18 06:00 Current Medications Generic Name Dose Route Start Last Admin Trade Name Freq PRN Reason Stop Dose Admin Atorvastatin Calcium 10 mg 08/25/18 22:00 08/25/18 21:54 Lipitor - PO 10 mg HS ALAN Administration Citalopram Hydrobromide 20 mg 08/25/18 10:00 08/26/18 10:35 Celexa - PO 20 mg DAILY ALAN Administration Docusate Sodium 100 mg 08/25/18 22:00 08/26/18 13:53 Colace - PO 100 mg TID ALAN Administration Enoxaparin Sodium 100 mg 08/25/18 10:00 08/26/18 10:38 Lovenox - SQ 100 mg BID ALAN Administration Hydrochlorothiazide 12.5 mg 08/25/18 10:00 08/26/18 10:35 Hctz - PO 12.5 mg DAILY ALAN Administration Sodium Chloride 1,000 mls @ 100 mls/hr 08/26/18 09:30 08/26/18 11:04 Normal Saline - IV 100 mls/hr ASDIR ALAN Administration Methadone HCl 80 mg/ Methadone 90 mg 08/26/18 09:00 08/26/18 10:34 HCl 10 mg PO 90 mg DAILY@0900 ALAN Administration Methylnaltrexone [place] 12 mg 08/26/18 10:00 08/26/18 10:39 Relistor - SQ 12 mg DAILY ALAN Administration Nystatin 500,000 unit 08/25/18 22:00 08/25/18 21:55 Nystatin PO 500,000 unit TID ALAN Administration Pantoprazole Sodium 40 mg 08/26/18 10:00 08/26/18 10:38 Protonix Iv IVPUSH 40 mg BID ALAN Administration Quetiapine Fumarate 100 mg 08/25/18 10:00 08/26/18 10:37 Seroquel - PO 100 mg DAILY ALAN Administration Quetiapine Fumarate 300 mg 08/25/18 22:00 08/25/18 21:54 Seroquel - PO 300 mg HS ALAN Administration Abdominal sono- hepatomegaly - hepatocellular disease vs. fatty liver ; no splenomegaly Impression: Probably worthwhile to screen in hospital for thrombophilia Can bridge to either coumadin or Noac x 3 months.. In view of abnormal LFT's - NOAC may be safer Problem List - Problems (1) Deep vein thrombosis (DVT) of right upper extremity Code(s): I82.621 - ACUTE EMBOLISM AND THROMBOSIS OF DEEP VEINS OF R UP EXTREM
[2018-08-26] MEDS: NYSTATIN 500,000 UNITS TABLET PO SCH ×2 (17:55→22:28)
[2018-08-26] MEDS: QUEtiapine FUMARATE 300 MG TABLET PO SCH (22:28)
[2018-08-26] MEDS: ATORVASTATIN CA 10 MG TABLET (FP) PO SCH (22:28)
[2018-08-27 04:13] LABS: HEPATITIS B CORE ANTIBODY,IGM Negative (Negative)
[2018-08-27] MEDS ORDERED: PT OWN MED DRAWER 7, Y5N ONE ×2 (05:51→09:44)
[2018-08-27] MEDS: NYSTATIN 500,000 UNITS TABLET PO SCH ×4 (05:57→21:58)
[2018-08-27] MEDS: DOCUSATE SODIUM 100 MG CAPSULE (FP) PO SCH ×3 (05:57→21:58)
[2018-08-27] MEDS ORDERED: METHADONE HCL 40 MG DISPERSABLE TABLET ONE (08:30)
[2018-08-27] MEDS ORDERED: METHADONE HCL 10 MG TABLET ONE (08:30)
[2018-08-27] MEDS: METHADONE 80 MG, METHADONE 10 MG PO SCH (08:34)
--- NOTE | 2018-08-27 08:58 | PN ---
GI Progress Note Subjective: Patient examined lying in bed. She states her heartburn is improving after starting pantoprazole IV. States she has vomiting x three episodes yesterday after receiving medication. Denies any further episodes of vomiting since. She says after receiving Relistor she was able to have a small BM. Noted with elevated tumor markers AFP 10.8, CEA 7.8, CA 19-9 47. - Objective Vital Signs: Vital Signs Temperature 98.1 F 08/27/18 06:52 Pulse Rate 82 08/27/18 06:52 Respiratory Rate 20 08/27/18 06:52 Blood Pressure 99/65 08/27/18 06:52 O2 Sat by Pulse Oximetry (%) 98 08/26/18 21:00 Constitutional: Well Nourished, No Distress, Calm Eyes: Yes: Conjunctiva Clear HENT: Yes: Atraumatic Cardiovascular: Yes: Regular Rate and Rhythm Respiratory: Yes: Regular, CTA Bilaterally Gastrointestinal Inspection: Yes: WNL. No: Ascites, Distention, Hernia, Scars, Other ...Auscultate: Yes: Normoactive Bowel Sounds. No: Hyperactive Bowel Sounds, Hypoactive Bowel Sounds, No Bowel Sounds, Other ...Palpate: Yes: Soft, Tenderness (RUQ, LUQ, suprapubic, LLQ) Labs: CBC, BMP 08/26/18 06:00 08/26/18 06:00 INR, PTT INR 1.12 (0.83-1.09) H 08/24/18 13:09 Problem List - Problems (1) Constipation Code(s): K59.00 - CONSTIPATION, UNSPECIFIED (2) Elevated LFTs Code(s): R94.5 - ABNORMAL RESULTS OF LIVER FUNCTION STUDIES (3) Heartburn Code(s): R12 - HEARTBURN
--- NOTE | 2018-08-27 09:22 | PN ---
Progress Note, Physician History of Present Illness: GI FOLLOW UP NOTE Patient examined and case discussed with Dr. Bedolla Patient states that heartburn is improving after starting on pantoprazole IV BID. She complains of vomiting three times after taking her medication, denies further episodes of nausea or vomiting. States Relistor is helping with constipation, admits to having BM after administation. Noted with elevated tumor markers, AFP 10.8, CEA 7.8, CA 19-9 47. LFTs noted to be trending down. Abdominal US shows over distended gallbladder with a small sludge without wall thickening or pericholecystic free fluid. - Current Medication List Current Medications: Active Medications Atorvastatin Calcium (Lipitor -) 10 mg PO HS [facility] Last Admin: 08/26/18 22:28 Dose: 10 mg Citalopram Hydrobromide (Celexa -) 20 mg PO DAILY [facility] Last Admin: 08/26/18 10:35 Dose: 20 mg Docusate Sodium (Colace -) 100 mg PO TID [facility] Last Admin: 08/27/18 05:57 Dose: 100 mg Enoxaparin Sodium (Lovenox -) 100 mg SQ BID [facility] Last Admin: 08/26/18 22:27 Dose: 100 mg Hydrochlorothiazide (Hctz -) 12.5 mg PO DAILY [facility] Last Admin: 08/26/18 10:35 Dose: 12.5 mg Sodium Chloride (Normal Saline -) 1,000 mls @ 100 mls/hr IV ASDIR [facility] Last Admin: 08/26/18 11:04 Dose: 100 mls/hr Methadone HCl 80 mg/ Methadone (HCl 10 mg) 90 mg PO DAILY@0900 [facility] Last Admin: 08/27/18 08:34 Dose: 90 mg Methylnaltrexone [place] (Relistor -) 12 mg SQ DAILY [facility] Last Admin: 08/26/18 10:39 Dose: 12 mg Nystatin (Nystatin) 500,000 unit PO TID [facility] Last Admin: 08/27/18 06:18 Dose: 500,000 unit Pantoprazole Sodium (Protonix Iv) 40 mg IVPUSH BID [facility] Last Admin: 08/26/18 22:30 Dose: 40 mg Quetiapine Fumarate (Seroquel -) 100 mg PO DAILY [facility] Last Admin: 08/26/18 10:37 Dose: 100 mg Quetiapine Fumarate (Seroquel -) 300 mg PO HS [facility] Last Admin: 08/26/18 22:28 Dose: 300 mg - Objective Vital Signs: Vital Signs Temperature 98.1 F 08/27/18 06:52 Pulse Rate 82 08/27/18 06:52 Respiratory Rate 20 08/27/18 06:52 Blood Pressure 99/65 08/27/18 06:52 O2 Sat by Pulse Oximetry (%) 98 08/26/18 21:00 Constitutional: Yes: Well Nourished, No Distress, Calm Eyes: Yes: Conjunctiva Clear HENT: Yes: Atraumatic Cardiovascular: Yes: Regular Rate and Rhythm Respiratory: Yes: Regular, CTA Bilaterally Gastrointestinal: Yes: Normal Bowel Sounds, Soft, Tenderness (RUQ, LUQ, suprapubic and LLQ) Edema: Yes (RUE and RLE) Neurological: Yes: Alert, Oriented Labs: CBC, BMP 08/26/18 06:00 08/26/18 06:00 INR, PTT INR 1.12 (0.83-1.09) H 08/24/18 13:09 Problem List - Problems (1) Unintentional weight loss Assessment/Plan: -elevated tumor markers: AFP 10.8, CEA 7.8, CA 19-9 47 -ordered B/L Breast US but not performed in-patient -will need to follow up with [employer]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
[2018-08-27] MEDS: PANTOPRAZOLE SODIUM 40 MG VIAL IVPUSH SCH ×2 (09:50→21:59)
[2018-08-27] MEDS: HYDROCHLOROTHIAZIDE 12.5 MG CAPSULE (FP) PO SCH (09:50)
[2018-08-27] MEDS: Methylnaltrexone Bromide 12 MG/0.6 ML KIT SQ SCH (09:50)
[2018-08-27] MEDS: QUEtiapine FUMARATE 100 MG TABLET (FP) PO SCH (09:50)
[2018-08-27] MEDS: CITALOPRAM HYDROBROMIDE 20 MG TABLET (FP) PO SCH (09:50)
[2018-08-27] MEDS: ENOXAPARIN NA (PORCINE) 100 MG/1 ML DISP.SYRIN SQ SCH ×2 (09:50→22:00)
--- NOTE | 2018-08-27 10:02 | PN ---
Progress Note, Physician Chief Complaint: K+ was low yesterday; was repleted. Labs reviewed, tumor markers are elevated. History of Present Illness: BP runs low at times. - Current Medication List Current Medications: Active Medications Atorvastatin Calcium (Lipitor -) 10 mg PO HS [facility] Last Admin: 08/26/18 22:28 Dose: 10 mg Citalopram Hydrobromide (Celexa -) 20 mg PO DAILY [facility] Last Admin: 08/27/18 09:50 Dose: 20 mg Docusate Sodium (Colace -) 100 mg PO TID [facility] Last Admin: 08/27/18 05:57 Dose: 100 mg Enoxaparin Sodium (Lovenox -) 100 mg SQ BID [facility] Last Admin: 08/27/18 09:50 Dose: 100 mg Hydrochlorothiazide (Hctz -) 12.5 mg PO DAILY [facility] Last Admin: 08/27/18 09:50 Dose: 12.5 mg Sodium Chloride (Normal Saline -) 1,000 mls @ 100 mls/hr IV ASDIR [facility] Last Admin: 08/26/18 11:04 Dose: 100 mls/hr Methadone HCl 80 mg/ Methadone (HCl 10 mg) 90 mg PO DAILY@0900 [facility] Last Admin: 08/27/18 08:34 Dose: 90 mg Methylnaltrexone [place] (Relistor -) 12 mg SQ DAILY [facility] Last Admin: 08/27/18 09:50 Dose: 12 mg Nystatin (Nystatin) 500,000 unit PO TID [facility] Last Admin: 08/27/18 06:18 Dose: 500,000 unit Pantoprazole Sodium (Protonix Iv) 40 mg IVPUSH BID [facility] Last Admin: 08/27/18 09:50 Dose: 40 mg Quetiapine Fumarate (Seroquel -) 100 mg PO DAILY [facility] Last Admin: 08/27/18 09:50 Dose: 100 mg Quetiapine Fumarate (Seroquel -) 300 mg PO HS [facility] Last Admin: 08/26/18 22:28 Dose: 300 mg - Objective Vital Signs: Vital Signs Temperature 98.1 F 08/27/18 06:52 Pulse Rate 82 08/27/18 06:52 Respiratory Rate 20 08/27/18 06:52 Blood Pressure 99/65 08/27/18 06:52 O2 Sat by Pulse Oximetry (%) 98 08/26/18 21:00 Constitutional: Yes: No Distress, Calm Eyes: Yes: Conjunctiva Clear Cardiovascular: Yes: Regular Rate and Rhythm Respiratory: Yes: CTA Bilaterally (no rales or wheezing.) Gastrointestinal: Yes: Soft, Abdomen, Obese Edema: Yes Edema: RUE: 2+, LLE: Trace, RLE: Trace Neurological: Yes: Alert, Oriented ...Motor Strength: WNL Labs: CBC, BMP 08/26/18 06:00 08/26/18 06:00 INR, PTT INR 1.12 (0.83-1.09) H 08/24/18 13:09 Laboratory Tests 08/26/18 08/26/18 08/26/18 06:00 06:00 09:50 WBC 5.4 Hgb 10.1 L Plt Count 165 Sodium 137 Potassium 3.0 L AST 342 H ALT 207 H Tumor Marker AFP 10.8 H Carcinoembryonic Ag CA 19-9 Antigen 47 H CA 125 Antigen 14.4 08/26/18 09:50 WBC Hgb Plt Count Sodium Potassium AST ALT Tumor Marker AFP Carcinoembryonic Ag 7.8 H CA 19-9 Antigen CA 125 Antigen - ....Imaging Other: Other (Echo reviewed: diastolic dysfunction, otherwise ok) Assessment/Plan IMP: Upper extremity DVT History of HTN History of HLD with fatty liver Obesity Methadone maintenance Hypokalemia REC: 1. Continued AC as per Heme and Vascular. Can likely convert to NOAC prior to discharge. 2. Etiology of the DVT not entirely clear, possibly related to opiate use; Heme evaluation pending; elevated tumor markers will need to further evaluated as per PMD and Heme. 3. Echocardiogram reviewed, diastolic dysfunction. 4. Fatty liver on imaging, low dose statin being used. Follow LFTS, will need GI follow up. 5. K+ repleted yesterday; d/c HCTZ as BP runs low at times. Repeat metabolic panel today. 6. Repeat ECG today.
--- NOTE | 2018-08-27 10:51 | EKG ---
Test Reason : Blood Pressure : / mmHG Vent. Rate : 077 BPM Atrial Rate : 077 BPM P-R Int : 132 ms QRS Dur : 094 ms QT Int : 416 ms P-R-T Axes : 042 -03 030 degrees QTc Int : 470 ms NORMAL SINUS RHYTHM NORMAL ECG WHEN COMPARED WITH ECG OF 24-AUG-2018 11:52, NO SIGNIFICANT CHANGE WAS FOUND Confirmed by MARCO A LUX MD ([id number]) on 08/27/2018 10:51:05 AM Referred By: MARK MARINO [facility] Confirmed By:MARCO A LUX MD
[2018-08-27 11:35] LABS: ANION GAP 6 MMOL/L (8-16); BLOOD UREA NITROGEN 5 mg/dL (7-18); CALCIUM 7.5 mg/dL (8.5-10.1); CHLORIDE 103 mmol/L (98-107); CO2 31 mmol/L (21-32); CREATININE 0.8 mg/dL (0.55-1.3); GLUCOSE,RANDOM 92 mg/dL (74-106); POTASSIUM 3.3 mmol/L (3.5-5.1); SODIUM 140 mmol/L (136-145)
[2018-08-27] MEDS ORDERED: POTASSIUM CHLORIDE TABS 20 MEQ TABLET.ER (FP) PO ONE (11:51)
[2018-08-27 12:29] LABS: HBSAG SCREEN Negative (Negative); HEP A AB, IGM Negative (Negative); HEP B CORE AB, TOT Negative (Negative)
--- NOTE | 2018-08-27 15:34 | EKG ---
Test Reason : Blood Pressure : / mmHG Vent. Rate : 076 BPM Atrial Rate : 076 BPM P-R Int : 136 ms QRS Dur : 090 ms QT Int : 402 ms P-R-T Axes : 049 -02 026 degrees QTc Int : 452 ms NORMAL SINUS RHYTHM NONSPECIFIC T WAVE ABNORMALITY ABNORMAL ECG WHEN COMPARED WITH ECG OF 26-AUG-2018 15:11, NO SIGNIFICANT CHANGE WAS FOUND Confirmed by MARCO A LUX MD ([id number]) on 08/27/2018 3:33:45 PM Referred By: Confirmed By:MARCO A LUX MD
--- NOTE | 2018-08-27 19:34 | PN ---
Progress Note, Physician - Current Medication List Current Medications: Active Medications Atorvastatin Calcium (Lipitor -) 10 mg PO HS [facility] Last Admin: 08/26/18 22:28 Dose: 10 mg Citalopram Hydrobromide (Celexa -) 20 mg PO DAILY [facility] Last Admin: 08/27/18 09:50 Dose: 20 mg Docusate Sodium (Colace -) 100 mg PO TID [facility] Last Admin: 08/27/18 14:36 Dose: 100 mg Enoxaparin Sodium (Lovenox -) 100 mg SQ BID [facility] Last Admin: 08/27/18 09:50 Dose: 100 mg Sodium Chloride (Normal Saline -) 1,000 mls @ 100 mls/hr IV ASDIR [facility] Last Admin: 08/26/18 11:04 Dose: 100 mls/hr Methadone HCl 80 mg/ Methadone (HCl 10 mg) 90 mg PO DAILY@0900 [facility] Last Admin: 08/27/18 08:34 Dose: 90 mg Methylnaltrexone [place] (Relistor -) 12 mg SQ DAILY [facility] Last Admin: 08/27/18 09:50 Dose: 12 mg Nystatin (Nystatin) 500,000 unit PO TID [facility] Last Admin: 08/27/18 14:36 Dose: 500,000 unit Pantoprazole Sodium (Protonix Iv) 40 mg IVPUSH BID [facility] Last Admin: 08/27/18 09:50 Dose: 40 mg Quetiapine Fumarate (Seroquel -) 100 mg PO DAILY [facility] Last Admin: 08/27/18 09:50 Dose: 100 mg Quetiapine Fumarate (Seroquel -) 300 mg PO HS [facility] Last Admin: 08/26/18 22:28 Dose: 300 mg - Objective Vital Signs: Vital Signs Temperature 98.1 F 08/27/18 10:00 Pulse Rate 89 08/27/18 10:00 Respiratory Rate 20 08/27/18 10:00 Blood Pressure 105/79 08/27/18 10:00 O2 Sat by Pulse Oximetry (%) 98 08/27/18 09:00 Labs: CBC, BMP 08/26/18 06:00 08/27/18 10:40 INR, PTT INR 1.12 (0.83-1.09) H 08/24/18 13:09 Problem List - Problems (1) Deep vein thrombosis (DVT) of right upper extremity Code(s): I82.621 - ACUTE EMBOLISM AND THROMBOSIS OF DEEP VEINS OF R UP EXTREM (2) Edema Code(s): R60.9 - EDEMA, UNSPECIFIED (3) Elevated LFTs Code(s): R94.5 - ABNORMAL RESULTS OF LIVER FUNCTION STUDIES (4) Opioid dependence Code(s): F11.20 - OPIOID DEPENDENCE, UNCOMPLICATED
[2018-08-27] MEDS: SODIUM CHLORIDE 1,000 ML IV SCH (20:20)
[2018-08-27] MEDS ORDERED: QUEtiapine FUMARATE 100 MG TABLET (FP) ONE (21:43)
[2018-08-27] MEDS: ATORVASTATIN CA 10 MG TABLET (FP) PO SCH (21:58)
[2018-08-27] MEDS: QUEtiapine FUMARATE 300 MG TABLET PO SCH (21:59)
[2018-08-28] MEDS: DOCUSATE SODIUM 100 MG CAPSULE (FP) PO SCH ×3 (06:50→23:25)
[2018-08-28] MEDS: NYSTATIN 500,000 UNITS TABLET PO SCH ×3 (06:50→23:26)
[2018-08-28] MEDS: SODIUM CHLORIDE 1,000 ML IV SCH (06:53)
[2018-08-28] MEDS ORDERED: METHADONE HCL 10 MG TABLET ONE (09:14)
[2018-08-28] MEDS ORDERED: METHADONE HCL 40 MG DISPERSABLE TABLET ONE (09:14)
--- NOTE | 2018-08-28 09:14 | PN ---
Progress Note, Physician History of Present Illness: GI FOLLOW UP NOTE Patient examined and case discussed with Dr. Bedolla Patient states that heartburn is improving on pantoprazole IV BID. Denies vomiting but states having nausea after taking her medication. No BM yesterday despite receiving Relistor. - Current Medication List Current Medications: Active Medications Atorvastatin Calcium (Lipitor -) 10 mg PO HS [facility] Last Admin: 08/27/18 21:58 Dose: 10 mg Citalopram Hydrobromide (Celexa -) 20 mg PO DAILY [facility] Last Admin: 08/27/18 09:50 Dose: 20 mg Docusate Sodium (Colace -) 100 mg PO TID [facility] Last Admin: 08/28/18 06:50 Dose: 100 mg Enoxaparin Sodium (Lovenox -) 100 mg SQ BID [facility] Last Admin: 08/27/18 22:00 Dose: 100 mg Sodium Chloride (Normal Saline -) 1,000 mls @ 100 mls/hr IV ASDIR [facility] Last Admin: 08/28/18 06:53 Dose: 100 mls/hr Methadone HCl 80 mg/ Methadone (HCl 10 mg) 90 mg PO DAILY@0900 [facility] Last Admin: 08/27/18 08:34 Dose: 90 mg Methylnaltrexone [place] (Relistor -) 12 mg SQ DAILY [facility] Last Admin: 08/27/18 09:50 Dose: 12 mg Nystatin (Nystatin) 500,000 unit PO TID [facility] Last Admin: 08/28/18 06:50 Dose: 500,000 unit Pantoprazole Sodium (Protonix Iv) 40 mg IVPUSH BID [facility] Last Admin: 08/27/18 21:59 Dose: 40 mg Quetiapine Fumarate (Seroquel -) 100 mg PO DAILY [facility] Last Admin: 08/27/18 09:50 Dose: 100 mg Quetiapine Fumarate (Seroquel -) 300 mg PO HS [facility] Last Admin: 08/27/18 21:59 Dose: 300 mg - Objective Vital Signs: Vital Signs Temperature 98 F 08/28/18 06:27 Pulse Rate 81 08/28/18 06:27 Respiratory Rate 20 08/28/18 06:27 Blood Pressure 94/54 L 08/28/18 06:27 O2 Sat by Pulse Oximetry (%) 98 08/27/18 21:00 Constitutional: Yes: Well Nourished, No Distress, Calm Eyes: Yes: Conjunctiva Clear HENT: Yes: Atraumatic Cardiovascular: Yes: Regular Rate and Rhythm Respiratory: Yes: Regular, CTA Bilaterally Gastrointestinal: Yes: Normal Bowel Sounds, Soft, Tenderness (upper abdomen and epigastric area) Musculoskeletal: Yes: WNL Extremities: Yes: WNL Edema: Yes (RUE and RLE) Neurological: Yes: Alert, Oriented Psychiatric: Yes: Alert, Oriented Labs: CBC, BMP 08/26/18 06:00 08/27/18 10:40 INR, PTT INR 1.12 (0.83-1.09) H 08/24/18 13:09 Problem List - Problems (1) Unintentional weight loss Assessment/Plan: -elevated tumor markers: AFP 10.8, CEA 7.8, CA 19-9 47 -ordered B/L Breast US but not performed in-patient -will need to follow up with [employer] for further work-up and Breast US Code(s): R63.4 - ABNORMAL WEIGHT LOSS (2) Constipation Assessment/Plan: -continue with Relistor -Citroma 300cc PO x 1 dose, will start on Miralax 34g PO BID Code(s): K59.00 - CONSTIPATION, UNSPECIFIED (3) Elevated LFTs Assessment/Plan: -LFTs from 08/26 show down trend Code(s): R94.5 - ABNORMAL RESULTS OF LIVER FUNCTION STUDIES (4) Nausea Assessment/Plan: -patient denies history of Parkinson's disease, will start reglan 5mg 30min AC Code(s): R11.0 - NAUSEA
[2018-08-28] MEDS ORDERED: PT OWN MED DRAWER 7, Y5N ONE ×3 (09:15→22:46)
[2018-08-28] MEDS: CITALOPRAM HYDROBROMIDE 20 MG TABLET (FP) PO SCH (09:18)
[2018-08-28] MEDS: PANTOPRAZOLE SODIUM 40 MG VIAL IVPUSH SCH ×2 (09:18→23:26)
[2018-08-28] MEDS: QUEtiapine FUMARATE 100 MG TABLET (FP) PO SCH (09:18)
[2018-08-28] MEDS: METHADONE 80 MG, METHADONE 10 MG PO SCH (09:18)
[2018-08-28] MEDS: Methylnaltrexone Bromide 12 MG/0.6 ML KIT SQ SCH (09:19)
[2018-08-28] MEDS: ENOXAPARIN NA (PORCINE) 100 MG/1 ML DISP.SYRIN SQ SCH ×2 (09:19→23:26)
[2018-08-28] MEDS ORDERED: MAGNESIUM CITRATE 300 ML BOTTLE PO ONE (09:45)
--- NOTE | 2018-08-28 10:47 | EKG ---
Test Reason : Blood Pressure : / mmHG Vent. Rate : 077 BPM Atrial Rate : 077 BPM P-R Int : 128 ms QRS Dur : 086 ms QT Int : 398 ms P-R-T Axes : 048 -04 023 degrees QTc Int : 450 ms NORMAL SINUS RHYTHM NONSPECIFIC T WAVE ABNORMALITY ABNORMAL ECG WHEN COMPARED WITH ECG OF 27-AUG-2018 11:16, NO SIGNIFICANT CHANGE WAS FOUND Confirmed by SHANE PALOMARES MD ([id number]) on 08/28/2018 10:46:57 AM Referred By: NISA DIANE Confirmed By:SHANE PALOMARES MD
[2018-08-28] MEDS: POLYETHYLENE GLYCOL 3350 119 GM BTL PO SCH ×2 (11:14→23:26)
--- NOTE | 2018-08-28 14:59 | PN ---
Progress Note, Physician Chief Complaint: seen and examined: no distress, no SOB or chest pain. ECG was repeated, QTc is stable and not prolonged. - Current Medication List Current Medications: Active Medications Atorvastatin Calcium (Lipitor -) 10 mg PO HS [facility] Last Admin: 08/27/18 21:58 Dose: 10 mg Citalopram Hydrobromide (Celexa -) 20 mg PO DAILY [facility] Last Admin: 08/28/18 09:18 Dose: 20 mg Docusate Sodium (Colace -) 100 mg PO TID [facility] Last Admin: 08/28/18 06:50 Dose: 100 mg Enoxaparin Sodium (Lovenox -) 100 mg SQ BID [facility] Last Admin: 08/28/18 09:19 Dose: 100 mg Sodium Chloride (Normal Saline -) 1,000 mls @ 100 mls/hr IV ASDIR [facility] Last Admin: 08/28/18 06:53 Dose: 100 mls/hr Methadone HCl 80 mg/ Methadone (HCl 10 mg) 90 mg PO DAILY@0900 [facility] Last Admin: 08/28/18 09:18 Dose: 90 mg Methylnaltrexone [place] (Relistor -) 12 mg SQ DAILY [facility] Last Admin: 08/28/18 09:19 Dose: 12 mg Metoclopramide HCl (Reglan -) 5 mg PO ACHS [facility] Nystatin (Nystatin) 500,000 unit PO TID [facility] Last Admin: 08/28/18 06:50 Dose: 500,000 unit Pantoprazole Sodium (Protonix Iv) 40 mg IVPUSH BID [facility] Last Admin: 08/28/18 09:18 Dose: 40 mg Polyethylene Glycol (Miralax (For Daily Use) -) 34 gm PO BID [facility] Last Admin: 08/28/18 11:14 Dose: Not Given Quetiapine Fumarate (Seroquel -) 100 mg PO DAILY [facility] Last Admin: 08/28/18 09:18 Dose: 100 mg Quetiapine Fumarate (Seroquel -) 300 mg PO HS [facility] Last Admin: 08/27/18 21:59 Dose: 300 mg - Objective Vital Signs: Vital Signs Temperature 98.1 F 08/28/18 09:00 Pulse Rate 92 H 08/28/18 09:00 Respiratory Rate 20 08/28/18 09:00 Blood Pressure 159/38 L 08/28/18 09:00 O2 Sat by Pulse Oximetry (%) 98 08/28/18 09:00 Constitutional: Yes: No Distress, Calm Cardiovascular: Yes: Regular Rate and Rhythm Respiratory: Yes: CTA Bilaterally Gastrointestinal: Yes: Soft, Abdomen, Obese Edema: Yes Edema: RUE: 1+, LLE: Trace, RLE: Trace Neurological: Yes: Alert, Oriented ...Motor Strength: WNL Labs: CBC, BMP 08/26/18 06:00 08/27/18 10:40 INR, PTT INR 1.12 (0.83-1.09) H 08/24/18 13:09 Laboratory Tests 08/26/18 08/26/18 09:50 09:50 Tumor Marker AFP 10.8 H Carcinoembryonic Ag 7.8 H CA 19-9 Antigen 47 H CA 125 Antigen 14.4 - ....Imaging Cat Scan: Report Reviewed EKG: Report Reviewed, Image Reviewed Assessment/Plan IMP: Upper extremity DVT History of HTN History of HLD with fatty liver Obesity Methadone maintenance Hypokalemia Elevated tumor markers Low albumin REC: 1. Continued AC as per Heme and Vascular. Can likely convert to NOAC prior to discharge. 2. Etiology of the DVT not entirely clear, possibly related to opiate use; Heme evaluation pending; elevated tumor markers will need to further evaluated as per PMD and Heme. 3. Echocardiogram reviewed, diastolic dysfunction. 4. Fatty liver on imaging, low dose statin being used. Follow LFTS, GI following. 5. K+ has been mildly low and was repleted. Repeat bloodwork. HCTZ discontinued. 6. ECG repeated, QT stable and not prolonged. 7. Would begin process of discharge planning including future follow up plan with Heme, PMD and GI. Will sign off today. Please call again as/if needed. Thank you.
[2018-08-28] MEDS: METOCLOPRAMIDE HCL 10 MG TABLET (FP) PO SCH ×2 (15:05→18:07)
[2018-08-28 17:55] LABS: ALBUMIN 2.4 g/dl (3.4-5.0); ALK PHOS 425 U/L (45-117); ANION GAP 7 MMOL/L (8-16); BILIRUBIN,TOTAL 0.6 mg/dL (0.2-1); BLOOD UREA NITROGEN 5 mg/dL (7-18); CALCIUM 7.6 mg/dL (8.5-10.1); CHLORIDE 104 mmol/L (98-107); CO2 28 mmol/L (21-32); CREATININE 0.6 mg/dL (0.55-1.3); GLUCOSE,RANDOM 94 mg/dL (74-106); POTASSIUM 3.5 mmol/L (3.5-5.1); SGOT/AST 175 U/L (15-37); SGPT/ALT 153 U/L (13-61); SODIUM 138 mmol/L (136-145); TOT PROT 5.8 g/dl (6.4-8.2)
[2018-08-28 19:01] LABS: BASO % 1.8 % (0-2.0); EOS % 3.3 % (0-4.5); HEMATOCRIT 33.2 % (32.4-45.2); HEMOGLOBIN 10.6 GM/dL (10.7-15.3); LYMPH % 33.8 % (8-40); MCH 31.9 pg (25.7-33.7); MCHC 31.9 g/dl (32.0-36.0); MEAN PLT VOLUME 10.1 fl (7.5-11.1); MONO % 6.7 % (3.8-10.2); NEUT % 54.4 % (42.8-82.8); PLATELET COUNT 207 K/MM3 (134-434); RBC 3.31 M/mm3 (3.60-5.2); RDW 16.5 % (11.6-15.6); WHITE BLOOD COUNT 8.6 K/mm3 (4.0-10.0)
--- NOTE | 2018-08-28 22:09 | PN ---
Progress Note, Physician - Current Medication List Current Medications: Active Medications Atorvastatin Calcium (Lipitor -) 10 mg PO HS [facility] Last Admin: 08/27/18 21:58 Dose: 10 mg Citalopram Hydrobromide (Celexa -) 20 mg PO DAILY [facility] Last Admin: 08/28/18 09:18 Dose: 20 mg Docusate Sodium (Colace -) 100 mg PO TID [facility] Last Admin: 08/28/18 15:05 Dose: 100 mg Enoxaparin Sodium (Lovenox -) 100 mg SQ BID [facility] Last Admin: 08/28/18 09:19 Dose: 100 mg Methadone HCl 80 mg/ Methadone (HCl 10 mg) 90 mg PO DAILY@0900 [facility] Last Admin: 08/28/18 09:18 Dose: 90 mg Methylnaltrexone [place] (Relistor -) 12 mg SQ DAILY [facility] Last Admin: 08/28/18 09:19 Dose: 12 mg Metoclopramide HCl (Reglan -) 5 mg PO ACHS [facility] Last Admin: 08/28/18 18:07 Dose: 5 mg Nystatin (Nystatin) 500,000 unit PO TID [facility] Last Admin: 08/28/18 15:06 Dose: 500,000 unit Pantoprazole Sodium (Protonix Iv) 40 mg IVPUSH BID [facility] Last Admin: 08/28/18 09:18 Dose: 40 mg Polyethylene Glycol (Miralax (For Daily Use) -) 34 gm PO BID [facility] Last Admin: 08/28/18 11:14 Dose: Not Given Quetiapine Fumarate (Seroquel -) 100 mg PO DAILY [facility] Last Admin: 08/28/18 09:18 Dose: 100 mg Quetiapine Fumarate (Seroquel -) 300 mg PO HS [facility] Last Admin: 08/27/18 21:59 Dose: 300 mg - Objective Vital Signs: Vital Signs Temperature 98 F 08/28/18 16:55 Pulse Rate 86 08/28/18 16:55 Respiratory Rate 20 08/28/18 16:55 Blood Pressure 154/72 08/28/18 16:55 O2 Sat by Pulse Oximetry (%) 98 08/28/18 09:00 Labs: CBC, BMP 08/28/18 18:00 08/28/18 15:15 INR, PTT INR 1.12 (0.83-1.09) H 03/11/19 13:09 Problem List - Problems (1) Deep vein thrombosis (DVT) of right upper extremity Code(s): I82.621 - ACUTE EMBOLISM AND THROMBOSIS OF DEEP VEINS OF R UP EXTREM (2) Edema Code(s): R60.9 - EDEMA, UNSPECIFIED (3) Elevated LFTs Code(s): R94.5 - ABNORMAL RESULTS OF LIVER FUNCTION STUDIES (4) Opioid dependence Code(s): F11.20 - OPIOID DEPENDENCE, UNCOMPLICATED
[2018-08-28] MEDS ORDERED: QUEtiapine FUMARATE 100 MG TABLET (FP) ONE (22:45)
[2018-08-28] MEDS: ATORVASTATIN CA 10 MG TABLET (FP) PO SCH (23:25)
[2018-08-28] MEDS: QUEtiapine FUMARATE 300 MG TABLET PO SCH (23:26)
[2018-08-29] MEDS: METOCLOPRAMIDE HCL 10 MG TABLET (FP) PO SCH ×5 (01:56→21:53)
[2018-08-29] MEDS ORDERED: PT OWN MED DRAWER 7, Y5N ONE ×3 (05:26→13:53)
[2018-08-29] MEDS: DOCUSATE SODIUM 100 MG CAPSULE (FP) PO SCH ×3 (06:43→21:53)
[2018-08-29] MEDS: NYSTATIN 500,000 UNITS TABLET PO SCH ×3 (06:43→21:55)
[2018-08-29 07:59] LABS: BASO % 0.5 % (0-2.0); EOS % 1.6 % (0-4.5); HEMOGLOBIN 9.2 GM/dL (10.7-15.3); LYMPH % 44.1 % (8-40); MCH 32.1 pg (25.7-33.7); MCHC 32.8 g/dl (32.0-36.0); MEAN PLT VOLUME 8.9 fl (7.5-11.1); MONO % 7.9 % (3.8-10.2); NEUT % 45.9 % (42.8-82.8); PLATELET COUNT 188 K/MM3 (134-434); RBC 2.86 M/mm3 (3.60-5.2); RDW 16.2 % (11.6-15.6); WHITE BLOOD COUNT 7.3 K/mm3 (4.0-10.0)
[2018-08-29 08:06] LABS: ALK PHOS 334 U/L (45-117); ANION GAP 4 MMOL/L (8-16); BILIRUBIN,TOTAL 0.5 mg/dL (0.2-1); BLOOD UREA NITROGEN 6 mg/dL (7-18); CALCIUM 7.1 mg/dL (8.5-10.1); CHLORIDE 107 mmol/L (98-107); CO2 29 mmol/L (21-32); CREATININE 0.7 mg/dL (0.55-1.3); GLUCOSE,RANDOM 77 mg/dL (74-106); POTASSIUM 3.4 mmol/L (3.5-5.1); SGOT/AST 124 U/L (15-37); SGPT/ALT 116 U/L (13-61); SODIUM 140 mmol/L (136-145); TOT PROT 5.2 g/dl (6.4-8.2)
[2018-08-29] MEDS ORDERED: METHADONE HCL 40 MG DISPERSABLE TABLET ONE (09:13)
[2018-08-29] MEDS ORDERED: METHADONE HCL 10 MG TABLET ONE (09:13)
[2018-08-29] MEDS: METHADONE 80 MG, METHADONE 10 MG PO SCH (09:18)
[2018-08-29] MEDS: QUEtiapine FUMARATE 100 MG TABLET (FP) PO SCH (09:20)
[2018-08-29] MEDS: PANTOPRAZOLE SODIUM 40 MG VIAL IVPUSH SCH ×2 (09:20→21:55)
[2018-08-29] MEDS: CITALOPRAM HYDROBROMIDE 20 MG TABLET (FP) PO SCH (09:20)
[2018-08-29] MEDS: APIXABAN 5 MG TABLET PO SCH ×2 (09:20→21:53)
[2018-08-29] MEDS: POLYETHYLENE GLYCOL 3350 119 GM BTL PO SCH ×2 (09:25→22:00)
[2018-08-29] MEDS: Methylnaltrexone Bromide 12 MG/0.6 ML KIT SQ SCH (09:32)
[2018-08-29] MEDS ORDERED: POTASSIUM CHLORIDE TABS 20 MEQ TABLET.ER (FP) PO ONE (17:45)
[2018-08-29] MEDS ORDERED: QUEtiapine FUMARATE 100 MG TABLET (FP) ONE (20:41)
[2018-08-29] MEDS: ATORVASTATIN CA 10 MG TABLET (FP) PO SCH (21:53)
[2018-08-29] MEDS: QUEtiapine FUMARATE 300 MG TABLET PO SCH (21:53)
--- NOTE | 2018-08-29 23:33 | PN ---
Progress Note, Physician - Current Medication List Current Medications: Active Medications Apixaban (Eliquis -) 5 mg PO BID [facility] Last Admin: 08/29/18 21:53 Dose: 5 mg Atorvastatin Calcium (Lipitor -) 10 mg PO HS [facility] Last Admin: 08/29/18 21:53 Dose: 10 mg Citalopram Hydrobromide (Celexa -) 20 mg PO DAILY [facility] Last Admin: 08/29/18 09:20 Dose: 20 mg Docusate Sodium (Colace -) 100 mg PO TID [facility] Last Admin: 08/29/18 21:53 Dose: 100 mg Methadone HCl 80 mg/ Methadone (HCl 10 mg) 90 mg PO DAILY@0900 [facility] Last Admin: 08/29/18 09:18 Dose: 90 mg Methylnaltrexone [place] (Relistor -) 12 mg SQ DAILY [facility] Last Admin: 08/29/18 09:32 Dose: Not Given Metoclopramide HCl (Reglan -) 5 mg PO ACHS [facility] Last Admin: 08/29/18 21:53 Dose: 5 mg Nystatin (Nystatin) 500,000 unit PO TID [facility] Last Admin: 08/29/18 21:55 Dose: 500,000 unit Pantoprazole Sodium (Protonix Iv) 40 mg IVPUSH BID [facility] Last Admin: 08/29/18 21:55 Dose: 40 mg Polyethylene Glycol (Miralax (For Daily Use) -) 34 gm PO BID [facility] Last Admin: 08/29/18 22:00 Dose: Not Given Quetiapine Fumarate (Seroquel -) 100 mg PO DAILY [facility] Last Admin: 08/29/18 09:20 Dose: 100 mg Quetiapine Fumarate (Seroquel -) 300 mg PO HS [facility] Last Admin: 08/29/18 21:53 Dose: 300 mg - Objective Vital Signs: Vital Signs Temperature 97.9 F 08/29/18 17:21 Pulse Rate 93 H 08/29/18 17:21 Respiratory Rate 20 08/29/18 17:21 Blood Pressure 119/76 08/29/18 17:21 O2 Sat by Pulse Oximetry (%) 98 08/29/18 21:00 Labs: CBC, BMP 08/29/18 06:00 08/29/18 06:00 INR, PTT INR 1.12 (0.83-1.09) H 08/24/18 13:09 Problem List - Problems (1) Deep vein thrombosis (DVT) of right upper extremity Code(s): I82.621 - ACUTE EMBOLISM AND THROMBOSIS OF DEEP VEINS OF R UP EXTREM (2) Edema Code(s): R60.9 - EDEMA, UNSPECIFIED (3) Elevated LFTs Code(s): R94.5 - ABNORMAL RESULTS OF LIVER FUNCTION STUDIES (4) Opioid dependence Code(s): F11.20 - OPIOID DEPENDENCE, UNCOMPLICATED
[2018-08-30] MEDS: DOCUSATE SODIUM 100 MG CAPSULE (FP) PO SCH ×2 (05:38→13:38)
[2018-08-30] MEDS: NYSTATIN 500,000 UNITS TABLET PO SCH ×2 (05:38→13:39)
[2018-08-30] MEDS: METOCLOPRAMIDE HCL 10 MG TABLET (FP) PO SCH ×2 (06:12→13:38)
[2018-08-30] MEDS ORDERED: METHADONE HCL 10 MG TABLET ONE (09:06)
[2018-08-30] MEDS ORDERED: METHADONE HCL 40 MG DISPERSABLE TABLET ONE (09:06)
[2018-08-30] MEDS ORDERED: PT OWN MED DRAWER 7, Y5N ONE ×3 (09:07→13:37)
[2018-08-30] MEDS: METHADONE 80 MG, METHADONE 10 MG PO SCH (09:12)
[2018-08-30] MEDS: PANTOPRAZOLE SODIUM 40 MG VIAL IVPUSH SCH (09:13)
[2018-08-30] MEDS: Methylnaltrexone Bromide 12 MG/0.6 ML KIT SQ SCH (09:13)
[2018-08-30] MEDS: QUEtiapine FUMARATE 100 MG TABLET (FP) PO SCH (09:13)
[2018-08-30] MEDS: APIXABAN 5 MG TABLET PO SCH (09:13)
[2018-08-30] MEDS: CITALOPRAM HYDROBROMIDE 20 MG TABLET (FP) PO SCH (09:13)
[2018-08-30] MEDS: POLYETHYLENE GLYCOL 3350 119 GM BTL PO SCH (09:14)
[2018-08-30 11:52] VITALS: BP 118/92; PULSE 102; TEMP 98
== END 2018-08-30 14:47 | disposition home or self-care (01) | DRG 197 ==
LOC: JER 11:34 → JERBED 16:34 → J8W 19:41
PROVIDERS: ADMIT Internal Medicine; ATTEND Internal Medicine
DX: I82.401 Acute embolism and thrombosis of unspecified deep veins of right lower extremity (principal); E66.9 Obesity, unspecified; I10 Essential (primary) hypertension; R74.0 Nonspecific elevation of levels of transaminase and lactic acid dehydrogenase [LDH]; E78.5 Hyperlipidemia, unspecified; Z68.38 Body mass index [BMI] 38.0-38.9, adult; F31.9 Bipolar disorder, unspecified; E87.6 Hypokalemia; F11.20 Opioid dependence, uncomplicated; K76.0 Fatty (change of) liver, not elsewhere classified; K21.9 Gastro-esophageal reflux disease without esophagitis; K59.00 Constipation, unspecified; F17.210 Nicotine dependence, cigarettes, uncomplicated; J98.11 Atelectasis; R16.0 Hepatomegaly, not elsewhere classified
CPT/HCPCS: 36415; 71250-TC; 74176-TC; 76700-TC; 76775-TC; 80048; 80053; 82105; 82378; 83880; 85025; 85610; 85730; 86301; 86304; 86317; 86704; 86705; 86706; 86708; 86803; 87340; 93005; 93010; 93306-TC; 93970-TC; 93971; 99284-25; J1644; J7030

== ENCOUNTER 2018-09-25 16:54 | Emergency (ER) | payer OTHER ==
[2018-09-25 17:09] VITALS: PULSE 73; BMI 37.8
--- NOTE | 2018-09-25 17:53 | PDOC ---
History of Present Illness - General Chief Complaint: Shortness of Breath Stated Complaint: SENT BY PCP Time Seen by Provider: 09/25/18 17:53 History Source: Patient Exam Limitations: No Limitations - History of Present Illness Initial Comments: 48 yo F w a pmh of HTN, HLD, Bipolar disorder, Opiod abuse (on methadone), multiple DVTs, presents to the ED today sent from her PCP Federico Ye because she was experiencing chest pain and SOB. Here in the ED she came in hypotensive and stat EKG showed diffusely low voltage. Upon entering the room bedside echo showed the patient has a mild/moderate sized pericardial effusion. Given the hypotension, respiratory distress and pericardial effusion we naturally started treating the patient as if she has tamponade. Immediately placed two US guided IV's in her AC's and ahmet a rainbow set of labs. The patient states that she is currently taking elliquis bc she has had multiple DVT's. She is no longer taking lasix bc she experienced a fast and rapid weight loss while on the pill. The patient endorses significant orthopnea and refuses to lie on her back. Bedside US also showed multiple B-lines throughout all lung frey. She has had a significant amount of leg swelling over the past 2 weeks as well. Denies recent fevers, chills, or infections. Allergies: NKDA, NKA Past surgical history: Colonoscopy (2-3 yrs ago as per pt) Social history: Current everyday smoker (10 cigarettes a day), Everyday drinker (3 drinks a day), Heroin and cocaine use. PCP: Federico Watson Past History - Past Medical History Allergies/Adverse Reactions: Allergies Allergy/AdvReac Type Severity Reaction Status Date / Time No Known Allergies Allergy Verified 09/25/18 17:01 Home Medications: Ambulatory Orders Hydrochlorothiazide [Hctz -] 12.5 mg PO DAILY #0 cap 05/20/13 Omeprazole [Prilosec (RX)] 40 mg PO DAILY #0 capsule. 05/20/13 Ranitidine HCl [Zantac] 150 mg PO BID PRN #10 tablet 05/20/13 Simvastatin [Zocor -] 10 mg PO HS #0 tablet 05/20/13 Citalopram Hydrobromide [Celexa -] 20 mg PO DAILY #30 tablet 06/17/18 Apixaban [Eliquis -] 5 mg PO BID #60 tablet 08/30/18 Docusate Sodium [Colace -] 100 mg PO TID #90 capsule 08/30/18 Methadone [Dolophine -] 90 mg PO DAILY@0900 #30 tablet MDD 1 08/30/18 Methylnaltrexone [place] [Relistor -] 12 mg SQ DAILY #30 kit 08/30/18 Metoclopramide HCl [Reglan -] 5 mg PO ACHS #30 tablet 08/30/18 Polyethylene Glycol 3350 [Miralax 119 gm Btl -] 34 gm PO BID #1 bottle 08/30/18 Quetiapine Fumarate [Seroquel] 300 mg PO HS #30 tablet 09/16/18 Anemia: Yes Asthma: No Cancer: No Cardiac Disorders: No CVA: No COPD: No CHF: No Dementia: No Diabetes: No GI Disorders: Yes (gerd) Disorders: No HTN: Yes Hypercholesterolemia: Yes Liver Disease: Yes (liver enzymes elevated) Seizures: No Thyroid Disease: No - Surgical History Abdominal Surgery: No Appendectomy: No Cardiac Surgery: No Cholecystectomy: No Lung Surgery: No Neurologic Surgery: Yes (R ganglion cyst removed) Orthopedic Surgery: No - Immunization History Immunization Up to Date: Yes - Suicide/Smoking/Psychosocial Hx Smoking History: Never smoked Have you smoked in the past 12 months: Yes Number of Cigarettes Smoked Daily: 4 Information on smoking cessation initiated: No Hx Alcohol Use: No Drug/Substance Use Hx: No Substance Use Type: Alcohol, Cocaine, Heroin Hx Substance Use Treatment: Yes ([facility], [facility]) Review of Systems - Review of Systems Able to Perform ROS?: Yes Comments:: CONSTITUTIONAL: Present: Fatigue Absent: fever, no chills EYES: Absent: visual changes ENT: Absent: ear pain, no sore throat CARDIOVASCULAR: Present: Chest pain, palpitations RESPIRATORY: Present: cough, SOB GI: Present: Nausea, vomiting Absent: abdominal pain, no constipation, no diarrhea GENITOURINARY: Absent: dysuria, no frequency, no hematuria MUSKULOSKELETAL: Absent: back pain, no arthralgia, no myalgia SKIN: Absent: rash NEURO: Absent: headache *Physical Exam - Vital Signs Last Vital Signs Temp Pulse Resp BP Pulse Ox 98.8 F 73 17 94/46 L 95 09/25/18 17:02 09/25/18 17:02 09/25/18 17:02 09/25/18 17:02 09/25/18 17:02 - Physical Exam Comments: GENERAL: The patient is short of breath in moderate distress. HEENT: Normocephalic, atraumatic. PERRL, EOM intact. CARDIOVASCULAR: Normal S1, S2. Tachycardic rate and irregular rhythm. PULMONARY: Clear evidence of respiratory distress. There are crackles midway through both lung frey. ABDOMEN: Soft, non-distended, non-tender. EXTREMITIES: Normal ROM in all four extremities. No gross deformities. 2+ Edema in both legs. SKIN: Warm, dry. No rash NEUROLOGICAL: No focal neurological deficits. Procedures - Bedside Ultrasound Bedside Ultrasound: Cardiac Remarks: mild/moderate pericardial effusion ED Treatment Course - LABORATORY CBC & Chemistry Diagram: 09/25/18 18:17 09/25/18 18:17 Medical Decision Making - Medical Decision Making 48 yo F w a pmh of HTN, HLD, Bipolar disorder, Opiod abuse (on methadone), multiple DVTs, presents to the ED today sent from her PCP Federico Ye because she was experiencing chest pain and SOB. Here in the ED she came in hypotensive and stat EKG showed diffusely low voltage. Upon entering the room bedside echo showed the patient has a mild/moderate sized pericardial effusion. Given the hypotension, respiratory distress and pericardial effusion we naturally started treating the patient as if she has tamponade. Immediately placed two US guided IV's in her AC's and ahmet a rainbow set of labs. The patient states that she is currently taking elliquis bc she has had multiple DVT's. She is no longer taking lasix bc she experienced a fast and rapid weight loss while on the pill. The patient endorses significant orthopnea and refuses to lie on her back. Bedside US also showed multiple B-lines throughout all lung frey. She has had a significant amount of leg swelling over the past 2 weeks as well. Denies recent fevers, chills, or infections. VS: Hypotensive DDx IBNLT: ACS/KS, PE, Tamponade, Pulmonary edema, pleural effusion, heart failure Plan: Labs, Urine, CXR, EKG, ECHO, IV hydration, analgesia, re-assess. Patient is hypotensive and has fluid around her heart. Two 20 gauge IV's inserted with US guidance. - Given hypotensive nature of patient will administer IV hydration to raise intravascular pressure. Called [facility] cardiology who recommends transferring patient to [facility]. - Trop normal - BNP mildly elevated. Patient requests to be trasnfered to [place] so we will accommodate. Signing out patient to Dr. Jordan to complete transfer. *DC/Admit/Observation/Transfer Diagnosis at time of Disposition: Pericardial effusion Pulmonary edema Qualifiers: Chronicity: acute Qualified Code(s): J81.0 - Acute pulmonary edema - Discharge Dispostion Disposition: TRANSFER ACUTE CARE/OTHER HOSP Condition at time of disposition: Good - Referrals Referrals: Federico Ye MD [Primary Care Provider] - - Patient Instructions - Post Discharge Activity
[2018-09-25] MEDS ORDERED: FUROSEMIDE 40 MG/4 ML INJECTABLE VIAL IVPUSH ONE (18:08)
[2018-09-25] MEDS ORDERED: ASPIRIN 81 MG CHEWABLE TABLETS PO ONE (18:08)
--- NOTE | 2018-09-25 18:23 | PDOC ---
Attending Attestation - HPI HPI: 09/25/18 18:59 The patient is a 48 year old female, with a significant PMH of Anemia, anxiety, CVA, HTN, GERD, Dementia, Migraine, Multiple Sclerosis, Parkinson's, Seizure, Syncope, TIA, Vertigo, Fatty liver who presents to the emergency department with one day of SOB, chest pain and bilateral extremity edema. She was recently taken off of her lasix because she lost 30 pounds, however, she has now started to gain weight and her legs are swollen; so her PCP was concerned and advised her to come to the ED for further evaluation. The patient denies headache or dizziness. The patient denies fever, chills, diarrhea or constipation. The patient denies dysuria, frequency, urgency or hematuria. Allergies: NKDA Past surgical history: Colonoscopy (2-3 yrs ago as per pt) Social history: Current everyday smoker (10 cigarettes a day), Everyday drinker (3 drinks a day), Heroin and cocaine use. PCP: Federico Watson <Xin Lindsay - Last Filed: 09/25/18 18:59> - Resident Resident Name: Sesar Martinez - ED Attending Attestation I have performed the following: I have examined & evaluated the patient, The case was reviewed & discussed with the resident, I agree w/resident's findings & plan, Exceptions are as noted - Physicial Exam PE: GENERAL: Awake, alert, and fully oriented, in no acute distress HEAD: No signs of trauma EYES: PERRLA, EOMI, sclera anicteric, conjunctiva clear ENT: Auricles normal inspection, hearing grossly normal, nares patent, oropharynx clear without exudates. Moist mucosa NECK: Normal ROM, supple, no lymphadenopathy, JVD, or masses LUNGS: Breath sounds equal, clear to auscultation bilaterally. No wheezes, and no crackles HEART: Regular rate and rhythm, normal S1 and S2, no murmurs, rubs or gallops ABDOMEN: Soft, nontender, normoactive bowel sounds. No guarding, no rebound. No masses EXTREMITIES: Normal range of motion, 2+ pitting edema BLE. No clubbing or cyanosis. No cords, erythema, or tenderness NEUROLOGICAL: Cranial nerves II through XII grossly intact. Normal speech. Motor and sensation intact SKIN: Warm, Dry, normal turgor, no rashes or lesions noted. - Medical Decision Making Pt presents with hypotension, but no tachycardia. Noted to have low voltage on EKG, concerning for pericardial effusion. Patient was given glucagon to reverse atenolol, no significant improvement. While she is overall fluid overloaded, she is depleted from an intravascular perspective. Will give IV fluid boluses for hypotension. Labs pending. Bedside sono concerning for poss pericardial effusion. Likely transfer out. <Nereyda Gilbert - Last Filed: 09/28/18 11:56> Attestations - Attestations 09/25/18 19:00 Documentation prepared by Xin Lindsay, acting as medical cost consultant for Nereyda Gilbert MD, <Xin Lindsay - Last Filed: 09/25/18 18:59>
[2018-09-25] MEDS ORDERED: GLUCAGON 1 MG KIT IVPUSH ONE (18:30)
[2018-09-25] MEDS ORDERED: SODIUM CHLORIDE 500 ML IV STA (18:31)
[2018-09-25] MEDS ORDERED: ASPIRIN 81 MG CHEWABLE TABLETS ONE (18:32)
[2018-09-25] MEDS ORDERED: GlUCAGON HUMAN RECOMBINANT 1 MG/VIAL ONE (18:32)
[2018-09-25 18:38] LABS: BASO % 1.1 % (0-2.0); EOS % 2.4 % (0-4.5); HEMATOCRIT 25.1 % (32.4-45.2); HEMOGLOBIN 8.3 GM/dL (10.7-15.3); LYMPH % 30.2 % (8-40); MCH 30.3 pg (25.7-33.7); MCHC 32.9 g/dl (32.0-36.0); MEAN CELL VOLUME 92.2 fl (80-96); MONO % 4.9 % (3.8-10.2); NEUT % 61.4 % (42.8-82.8); PLATELET COUNT 286 K/MM3 (134-434); RBC 2.72 M/mm3 (3.60-5.2); RDW 17.7 % (11.6-15.6); WHITE BLOOD COUNT 7.5 K/mm3 (4.0-10.0)
[2018-09-25 18:59] LABS: INR 1.31 (0.83-1.09); PROTHROMBIN TIME (PATIENT) 15.5 SEC (9.7-13.0)
[2018-09-25 19:01] LABS: ACTIVATED PTT 42.7 SECONDS (25.2-36.5)
--- NOTE | 2018-09-25 19:34 | PDOC ---
*Physical Exam - Vital Signs Last Vital Signs Temp Pulse Resp BP Pulse Ox 98.8 F 73 17 94/46 L 95 09/25/18 17:02 09/25/18 17:02 09/25/18 17:02 09/25/18 17:02 09/25/18 17:02 ED Treatment Course - LABORATORY CBC & Chemistry Diagram: 09/25/18 18:17 09/25/18 18:17 - ADDITIONAL ORDERS Additional order review: Laboratory Results 09/25/18 18:17 PT with INR 15.50 H INR 1.31 H PTT (Actin FS) 42.7 H 09/25/18 18:17 RBC 2.72 L MCV 92.2 MCHC 32.9 RDW 17.7 H MPV 8.0 D Neutrophils % 61.4 D Lymphocytes % 30.2 D Monocytes % 4.9 Eosinophils % 2.4 Basophils % 1.1 - Medications Given in the ED: ED Medications Discontinued Medications Generic Name Dose Route Start Last Admin Trade Name Freq PRN Reason Stop Dose Admin Aspirin 162 mg 09/25/18 18:08 09/25/18 18:37 Asa - PO 09/25/18 18:09 162 mg ONCE ONE Administration Glucagon 3 mg 09/25/18 18:30 09/25/18 18:38 Glucagon - IVPUSH 09/25/18 18:31 3 mg ONCE ONE Administration Medical Decision Making - Medical Decision Making 09/25/18 19:28 I received pateint on signout; pt has 2 days of SOB; she has weight gain. Her PMD had recently taken her off of lasix, as she lost 30 lbs. SHe was originally on lasix for CHF - pt has known diastolic dysfunction. Pt has a hx of right upper ext DVT diagnosed in August 2018 and she is on eliquis. Pt has low voltages noted on her EKG and she was sent to the ER for eval by her PMD. Pt has fluid accumulation in her pericardial sac that was appreciated on sono that was unofficially done by us at bedside. 09/25/18 19:34 Sono department cannot do cardiac echo. We called public relations account supervisor cardiology. Dr. Galeas wants to transfer the patient. Dr. Pedro, PMDs partner agrees that pt requires transfer. 09/25/18 19:35 09/25/18 19:49 LFT normal; trop normal; BUN/Cr normal; Hb/HCT decreased -has been going down since last month. Pt states that she no longer gets her menses. We will check a stool for guaiac. 09/25/18 20:[address] Urban, who is covering for Dr. Blanco, and he also agrees to the transfer; we discussed that it is unlikely that pt has tamponade, but she has no other reason for her hypotension (sepsis etc.) 09/25/18 20:15 I spoke to the ER attending at [facility] Josiah, Dr. Santiago, and she accepts the patient, so long as cardiology accepts the patient. I spoke to Dr. Webster, cards fellow at [facility], and he accepts the patient on behalf of Dr. Raphael. Pt will be transferred via ALS. *DC/Admit/Observation/Transfer Diagnosis at time of Disposition: Pericardial effusion, Pulmonary edema - Discharge Dispostion Disposition: TRANSFER ACUTE CARE/OTHER HOSP Condition at time of disposition: Good - Referrals Referrals: Federico Ye MD [Primary Care Provider] - - Patient Instructions - Post Discharge Activity
[2018-09-25 19:45] LABS: ALK PHOS 76 U/L (45-117); ANION GAP 7 MMOL/L (8-16); BILIRUBIN,TOTAL 0.4 mg/dL (0.2-1); BLOOD UREA NITROGEN 8 mg/dL (7-18); CALCIUM 8.7 mg/dL (8.5-10.1); CHLORIDE 106 mmol/L (98-107); CO2 27 mmol/L (21-32); CREATININE 0.6 mg/dL (0.55-1.3); GLUCOSE,RANDOM 88 mg/dL (74-106); N-TERMINAL BNP 364.5 pg/ml (5-125); SGPT/ALT 16 U/L (13-61); SODIUM 140 mmol/L (136-145); TOT PROT 6.8 g/dl (6.4-8.2)
[2018-09-25 19:46] LABS: MAGNESIUM 2.2 mg/dL (1.8-2.4); POTASSIUM 4.3 mmol/L (3.5-5.1); SGOT/AST 20 U/L (15-37)
--- NOTE | 2018-09-25 20:42 | PDOC ---
*Physical Exam - Vital Signs Last Vital Signs Temp Pulse Resp BP Pulse Ox 98.8 F 73 17 94/46 L 95 09/25/18 17:02 09/25/18 17:02 09/25/18 17:02 09/25/18 17:02 09/25/18 17:02 ED Treatment Course - LABORATORY CBC & Chemistry Diagram: 09/25/18 18:17 09/25/18 18:17 - ADDITIONAL ORDERS Additional order review: Laboratory Results 09/25/18 09/25/18 09/25/18 18:17 18:17 18:17 PT with INR 15.50 H INR 1.31 H PTT (Actin FS) 42.7 H Sodium 140 Potassium 4.3 Chloride 106 Carbon Dioxide 27 Anion Gap 7 L BUN 8 Creatinine 0.6 Creat Clearance w eGFR 106.25 Random Glucose 88 Calcium 8.7 Magnesium 2.2 Total Bilirubin 0.4 AST 20 ALT 16 Alkaline Phosphatase 76 Creatine Kinase 56 Troponin I < 0.02 B-Natriuretic Peptide 364.5 H Total Protein 6.8 Albumin 3.0 L Blood Type O POSITIVE Antibody Screen Negative 09/25/18 18:17 RBC 2.72 L MCV 92.2 MCHC 32.9 RDW 17.7 H MPV 8.0 D Neutrophils % 61.4 D Lymphocytes % 30.2 D Monocytes % 4.9 Eosinophils % 2.4 Basophils % 1.1 - Medications Given in the ED: ED Medications Discontinued Medications Generic Name Dose Route Start Last Admin Trade Name Freq PRN Reason Stop Dose Admin Aspirin 162 mg 09/25/18 18:08 09/25/18 18:37 Asa - PO 09/25/18 18:09 162 mg ONCE ONE Administration Furosemide 40 mg 09/25/18 18:08 09/25/18 19:40 Lasix Injection - IVPUSH 09/25/18 18:09 Not Given ONCE ONE Glucagon 3 mg 09/25/18 18:30 09/25/18 18:38 Glucagon - IVPUSH 09/25/18 18:31 3 mg ONCE ONE Administration Sodium Chloride 500 mls @ 500 mls/hr 09/25/18 18:31 09/25/18 18:38 Normal Saline - IV 09/25/18 19:30 500 mls/hr ASDIR STA Administration Medical Decision Making - Medical Decision Making 48 year old female with hypotension and possible pericardial effusion found on bedside US. Patient's pressures improved with IV fluids and she was accepted at [facility] for transfer under the outpatient admitting clerk on service. She was stable and appeared comfortable on transfer. 09/26/18 05:09 *DC/Admit/Observation/Transfer Diagnosis at time of Disposition: Pericardial effusion Pulmonary edema Qualifiers: Chronicity: acute Qualified Code(s): J81.0 - Acute pulmonary edema - Discharge Dispostion Disposition: TRANSFER ACUTE CARE/OTHER HOSP Condition at time of disposition: Good - Referrals Referrals: Federico Ye MD [Primary Care Provider] - - Patient Instructions - Post Discharge Activity
[2018-09-25 21:00] LABS: PH,URINE 5.5 (5.0-8.0); URINE APPEARANCE CLEAR; URINE BILIRUBIN NEGATIVE (NEGATIVE); URINE COLOR YELLOW; URINE GLUCOSE (UA) NEGATIVE (NEGATIVE); URINE KETONE NEGATIVE (NEGATIVE); URINE LEUK ESTERASE NEGATIVE (NEGATIVE); URINE NITRITE NEGATIVE (NEGATIVE); URINE PROTEIN NEGATIVE (NEGATIVE); URINE UROBILINOGEN 0.2 mg/dL (0.2-1.0)
[2018-09-25 21:28] VITALS: BP 107/53; TEMP 98
--- NOTE | 2018-09-28 10:39 | EKG ---
Test Reason : Blood Pressure : / mmHG Vent. Rate : 071 BPM Atrial Rate : 071 BPM P-R Int : 140 ms QRS Dur : 088 ms QT Int : 422 ms P-R-T Axes : 058 -07 055 degrees QTc Int : 458 ms NORMAL SINUS RHYTHM POSSIBLE LEFT ATRIAL ENLARGEMENT NONSPECIFIC T WAVE ABNORMALITY ABNORMAL ECG WHEN COMPARED WITH ECG OF 28-AUG-2018 09:27, NO SIGNIFICANT CHANGE WAS FOUND Confirmed by JOSE J LAZARO, MARCO A ([id number]) on 09/28/2018 10:39:11 AM Referred By: Confirmed By:MARCO A LUX MD
--- NOTE | 2018-09-28 10:42 | EKG ---
Test Reason : Blood Pressure : / mmHG Vent. Rate : 074 BPM Atrial Rate : 074 BPM P-R Int : 132 ms QRS Dur : 086 ms QT Int : 430 ms P-R-T Axes : 041 -06 037 degrees QTc Int : 477 ms NORMAL SINUS RHYTHM NONSPECIFIC T WAVE ABNORMALITY PROLONGED QT ABNORMAL ECG WHEN COMPARED WITH ECG OF 28-AUG-2018 09:27, NO SIGNIFICANT CHANGE WAS FOUND Confirmed by FERNANDO BOYLE MD ([id number]) on 09/28/2018 10:41:48 AM Referred By: Confirmed By:FERNANDO BOYLE MD
== END 2018-09-25 21:29 | disposition short-term general hospital (02) ==
LOC: JER 16:54
PROC: 3E033GC Introduction of Other Therapeutic Substance into Peripheral Vein, Percutaneous Approach (ICD-10-PCS; principal; 2018-09-25)
DX: I31.3 Pericardial effusion (noninflammatory) (principal); J81.0 Acute pulmonary edema; I10 Essential (primary) hypertension; K21.9 Gastro-esophageal reflux disease without esophagitis; R94.5 Abnormal results of liver function studies; F11.20 Opioid dependence, uncomplicated; Z86.718 Personal history of other venous thrombosis and embolism; Z79.01 Long term (current) use of anticoagulants
CPT/HCPCS: 36415; 71045-TC-FY; 80053; 81003; 82272; 82550; 83735; 83880; 84484; 85025; 85610; 85730; 86850; 86900; 86901; 93005; 93010; 96374; 99285-25

== ENCOUNTER 2018-11-04 16:35 | Emergency (ER) | payer OTHER ==
--- NOTE | 2018-11-04 16:40 | PDOC ---
Rapid Medical Evaluation Time Seen by Provider: 11/04/18 16:37 Medical Evaluation: Allergies Allergy/AdvReac Type Severity Reaction Status Date / Time No Known Allergies Allergy Verified 11/04/18 16:37 11/04/18 16:38 I have performed a brief in-person evaluation of this patient. The patient presents with a chief complaint of: "i was just here for fluid around my heart and my lungs, and they think it's back again.", +chest pain, SOB x 2 weeks Pertinent physical exam findings: lungs CTAB I have ordered the following: labs, CXR The patient will proceed to the ED for further evaluation. Discharge Disposition - Referrals Referrals: Federico Ye MD [Primary Care Provider] - - Patient Instructions - Post Discharge Activity
[2018-11-04 16:41] VITALS: BP 133/76; PULSE 69; TEMP 98.2; BMI 37.4
[2018-11-04 17:12] LABS: BASO % 0.7 % (0-2.0); HEMATOCRIT 35.1 % (32.4-45.2); HEMOGLOBIN 11.8 GM/dL (10.7-15.3); LYMPH % 34.3 % (8-40); MCH 29.6 pg (25.7-33.7); MCHC 33.7 g/dl (32.0-36.0); MEAN CELL VOLUME 87.9 fl (80-96); MEAN PLT VOLUME 9.5 fl (7.5-11.1); MONO % 7.6 % (3.8-10.2); NEUT % 55.4 % (42.8-82.8); PLATELET COUNT 290 K/MM3 (134-434); RDW 16.4 % (11.6-15.6); WHITE BLOOD COUNT 7.7 K/mm3 (4.0-10.0)
[2018-11-04 17:45] LABS: ALBUMIN 3.8 g/dl (3.4-5.0); ALK PHOS 91 U/L (45-117); ANION GAP 8 MMOL/L (8-16); BILIRUBIN,TOTAL 0.2 mg/dL (0.2-1); BLOOD UREA NITROGEN 13 mg/dL (7-18); CALCIUM 9.3 mg/dL (8.5-10.1); CHLORIDE 100 mmol/L (98-107); CO2 29 mmol/L (21-32); CREATININE 0.6 mg/dL (0.55-1.3); GLUCOSE,RANDOM 84 mg/dL (74-106); MAGNESIUM 2.1 mg/dL (1.8-2.4); N-TERMINAL BNP 166.4 pg/ml (5-125); POTASSIUM 3.3 mmol/L (3.5-5.1); SGOT/AST 18 U/L (15-37); SGPT/ALT 23 U/L (13-61); SODIUM 137 mmol/L (136-145)
[2018-11-04] MEDS ORDERED: POTASSIUM CHLORIDE TABS 20 MEQ TABLET.ER (FP) PO ONE (18:04)
[2018-11-04] MEDS ORDERED: ACETAMINOPHEN 1000 MG/100 ML VIAL (NON FORMULARY) IVPB ONE (18:05)
[2018-11-04] MEDS ORDERED: POTASSIUM CHLORIDE TABS 10 MEQ TABLET.ER (FP) ONE (18:09)
[2018-11-04] MEDS ORDERED: ACETAMINOPHEN INJECTION 100 ML IVPB ONE (18:10)
[2018-11-04] MEDS ORDERED: FAMOTIDINE 20 MG/50 ML IVPB 20 MG/50 ML MG IVPB ONE ×2 (18:12→18:17)
[2018-11-04] MEDS ORDERED: MAG HYDROX/AL HYDROX/SIMETH 30 ML UNIT-DOSE CUP PO ONE (18:12)
[2018-11-04] MEDS ORDERED: LIDOCAINE VISCOUS 2% ORAL/TOP 20 ML UNIT-DOSE CUP MM ONE (18:12)
--- NOTE | 2018-11-04 18:12 | PDOC ---
Documentation entered by Raven Molina SCRIBE, acting as scribe for Rosalind Sánchez DO. Rosalind Sánchez DO: This documentation has been prepared by the Tracy cadet Daisy, SCRIBE, under my direction and personally reviewed by me in its entirety. I confirm that the documentation accurately reflects all work, treatment, procedures, and medical decision making performed by me. Attending Attestation - Resident Resident Name: Tyson Joseph - ED Attending Attestation I have performed the following: I have examined & evaluated the patient, The case was reviewed & discussed with the resident, I agree w/resident's findings & plan - HPI HPI: 11/04/18 17:56 The patient is a 48 YOF DVT in the RUE who presents to the ER sent in by PCP Dr. Ye for chest pain, shortness of breath, dry cough for the past 2 weeks. Denies any fevers. States that 1 month ago she had a pericardiocentesis at [place] followed by a needle decompression over a pneumo. She had difficulty following up at [place] and went to her PCP today who sent her to the ER. Denies fevers, chills, N/V/D,C, or urinary symptoms. Allergies: NKDA - Physicial Exam PE: 11/04/18 18:02 ADULT PHYSICAL EXAM Constitutional: Awake, alert, oriented. No acute distress. Neck: Supple. Full ROM. No lymphadenopathy. Cardiovascular: (+) Anterior chest wall tenderness. Regular rate. Regular rhythm. S1, S2 regular. Distal pulses are 2+ and symmetric. Pulmonary/Chest: No evidence of respiratory distress. Clear to auscultation bilaterally No wheezing, rales or rhonchi. Abdominal: Soft and non-distended. There is no tenderness. No rebound, guarding or rigidity. Back: No CVA tenderness. Musculoskeletal: (+) RUE swelling, but was diagnosed with DVT recently on eliquis. No LE edema. No cyanosis. No clubbing. Full range of motion in all extremities. Nocalf tenderness. Radial/pedal pulses are intact and 2+ bilaterally Skin: Skin is warm and dry. No petechiae. No purpura. Neurological: No focal deficits. - Medical Decision Making 11/04/18 18:05 I, Dr. Rosalind Sánchez, DO, attest that this document has been prepared under my direction and personally reviewed by me in its entirety. I further attest, that it accurately reflects all work, treatment, procedures and medical decision -making performed by me. 11/04/18 18:06 a/p: 48yo female with sob/cp x 2 weeks -recent dx of ptx and pericardial effusion s/p needle decompression/drainage of the pericardial effusion -sent to eval for poss fluid in the chest/abd -bedside ultrasound cardiac/lung shows trace effusion, no ptx -bedside fast negative -no tamponade physiology -will send labs, ekg, cxr -pt complains of burning sensation-sour taste in mouth- will give gi meds and monitor 11/04/18 18:59 cxr clear trop negative potassium replaced still with pain 11/04/18 23:06 cta negative repeat trop pending call placed to Dr. Pedro to update 11/05/18 00:[address] pedro updated, pt stable for dc to home Heart Score/ECG Review - ECG Intrepretation Comment:: 11/04/18 18:05 sinus at 71, nl axis, nl interval, no acute st/t wave findings
[2018-11-04] MEDS ORDERED: LIDOCAINE VISCOUS 2% ORAL/TOP 20 ML UNIT-DOSE CUP ONE (18:16)
[2018-11-04] MEDS ORDERED: MAG HYDROX/AL HYDROX/SIMETH 30 ML UNIT-DOSE CUP ONE (18:17)
--- NOTE | 2018-11-04 18:22 | PDOC ---
History of Present Illness - General Chief Complaint: Shortness of Breath Stated Complaint: SENT BY PCP Time Seen by Provider: 11/04/18 16:37 History Source: Patient Exam Limitations: No Limitations - History of Present Illness Initial Comments: 11/04/18 18:16 48F with a PMH of HTN, HLD, Bipolar disorder, Opiod abuse (on methadone), multiple DVTs who was sent by PCP for evaluation of possible recurrent pericardial effusion and pneumothorax. The patient states that for the last 2 weeks, she's had worsening SOB, RUE swelling, and and abdominal protuberance. She denies fever, chills, nausea, vomiting, but admits to reproducible pain on her anterior chest wall. She denies fever, chills, nausea, vomiting. Pt currently on eliquis. Past History - Past Medical History Allergies/Adverse Reactions: Allergies Allergy/AdvReac Type Severity Reaction Status Date / Time No Known Allergies Allergy Verified 11/04/18 16:37 Home Medications: Ambulatory Orders Hydrochlorothiazide [Hctz -] 12.5 mg PO DAILY #0 cap 05/20/13 Omeprazole [Prilosec (RX)] 40 mg PO DAILY #0 capsule. 05/20/13 Ranitidine HCl [Zantac] 150 mg PO BID PRN #10 tablet 05/20/13 Simvastatin [Zocor -] 10 mg PO HS #0 tablet 05/20/13 Citalopram Hydrobromide [Celexa -] 20 mg PO DAILY #30 tablet 06/17/18 Apixaban [Eliquis -] 5 mg PO BID #60 tablet 08/30/18 Docusate Sodium [Colace -] 100 mg PO TID #90 capsule 08/30/18 Methadone [Dolophine -] 90 mg PO DAILY@0900 #30 tablet MDD 1 08/30/18 Methylnaltrexone [place] [Relistor -] 12 mg SQ DAILY #30 kit 08/30/18 Metoclopramide HCl [Reglan -] 5 mg PO ACHS #30 tablet 08/30/18 Polyethylene Glycol 3350 [Miralax 119 gm Btl -] 34 gm PO BID #1 bottle 08/30/18 Quetiapine Fumarate [Seroquel] 300 mg PO HS #30 tablet 09/16/18 Citalopram Hydrobromide [Celexa -] 20 mg PO DAILY #14 tablet 10/14/18 Quetiapine Fumarate [Seroquel -] 50 mg PO HS #14 tablet 10/14/18 Quetiapine Fumarate [Seroquel -] 200 mg PO HS #14 tab 10/14/18 Anemia: Yes Asthma: No Cancer: No Cardiac Disorders: No CVA: No COPD: No CHF: No Dementia: No Diabetes: No GI Disorders: Yes (gerd) Disorders: No HTN: Yes Hypercholesterolemia: Yes Liver Disease: Yes (liver enzymes elevated) Seizures: No Thyroid Disease: No - Surgical History Abdominal Surgery: No Appendectomy: No Cardiac Surgery: No Cholecystectomy: No Lung Surgery: No Neurologic Surgery: Yes (R ganglion cyst removed) Orthopedic Surgery: No - Immunization History Immunization Up to Date: Yes - Suicide/Smoking/Psychosocial Hx Smoking History: Current every day smoker Have you smoked in the past 12 months: Yes Number of Cigarettes Smoked Daily: 3 Information on smoking cessation initiated: No Hx Alcohol Use: No Drug/Substance Use Hx: No Substance Use Type: Alcohol, Cocaine, Heroin Hx Substance Use Treatment: Yes ([facility], [facility]) Review of Systems - Review of Systems Able to Perform ROS?: Yes Comments:: 11/04/18 18:37 GENERAL/CONSTITUTIONAL: No fever or chills. No weakness. HEAD, EYES, EARS, NOSE AND THROAT: No change in vision. No ear pain or discharge. No sore throat. CARDIOVASCULAR: No chest pain, palpitations, or lightheadedness. RESPIRATORY: + for SOB. No cough, wheezing, or hemoptysis. GASTROINTESTINAL: No nausea, vomiting, diarrhea, constipation, or abdominal pain. GENITOURINARY: No dysuria, frequency, hematuria, or change in urination. MUSCULOSKELETAL: No joint or muscle swelling or pain. No neck or back pain. SKIN: No rash or lesions. NEUROLOGIC: No headache, numbness, tingling, focal weakness, loss of consciousness, or change in strength/sensation. Is the patient limited [place] proficient: No *Physical Exam - Vital Signs Last Vital Signs Temp Pulse Resp BP Pulse Ox 98.2 F 69 16 133/76 99 11/04/18 16:37 11/04/18 16:37 11/04/18 16:37 11/04/18 16:37 11/04/18 16:37 - Physical Exam Comments: 11/04/18 18:39 GENERAL: Well developed, well nourished. Awake and alert. No acute distress. HEENT: Normocephalic, atraumatic. Hearing grossly normal. Moist mucous membranes. PERRLA, EOMI. No conjunctival pallor. Sclera are non-icteric. NECK: Supple. Full ROM. No JVD. CARDIOVASCULAR: Regular rate and rhythm. No murmurs, rubs, or gallops. PULMONARY: No evidence of respiratory distress. Lungs clear to auscultation bilaterally. No wheezing, rales or rhonchi. ABDOMINAL: Soft. Non-tender. Non-distended. No rebound or guarding. MUSCULOSKELETAL: TTP over anterior chest wall. Normal range of motion at all joints. No bony deformities or tenderness. EXTREMITIES: No cyanosis. No clubbing. No edema. No calf tenderness or swelling. SKIN: Warm and dry. Normal capillary refill. No rashes. No jaundice. NEUROLOGICAL: Alert, awake, appropriate. Cranial nerves 2-12 grossly intact. Normal speech. Gait is normal without ataxia. PSYCHIATRIC: Cooperative. Good eye contact. Appropriate mood and affect. ED Treatment Course - LABORATORY CBC & Chemistry Diagram: 11/04/18 16:47 11/04/18 16:47 - ADDITIONAL ORDERS Additional order review: Laboratory Results 11/04/18 16:47 Sodium 137 Potassium 3.3 L Chloride 100 Carbon Dioxide 29 Anion Gap 8 BUN 13 Creatinine 0.6 Est GFR (CKD-EPI)AfAm 124.05 Est GFR (CKD-EPI)NonAf 107.03 Random Glucose 84 Calcium 9.3 Magnesium 2.1 Total Bilirubin 0.2 AST 18 ALT 23 Alkaline Phosphatase 91 Creatine Kinase 66 Troponin I < 0.02 B-Natriuretic Peptide 166.4 H Total Protein 8.0 Albumin 3.8 11/04/18 16:47 RBC 4.00 MCV 87.9 MCHC 33.7 RDW 16.4 H MPV 9.5 D Neutrophils % 55.4 Lymphocytes % 34.3 Monocytes % 7.6 Eosinophils % 2.0 Basophils % 0.7 - Medications Given in the ED: ED Medications Discontinued Medications Generic Name Dose Route Start Last Admin Trade Name Freq PRN Reason Stop Dose Admin Acetaminophen 1,000 mg 11/04/18 18:05 11/04/18 18:15 Ofirmev Injection - IVPB 11/04/18 18:06 1,000 mg ONCE ONE Administration Potassium Chloride 40 meq 11/04/18 18:04 11/04/18 18:15 K-Dur - PO 11/04/18 18:05 40 meq ONCE ONE Administration Medical Decision Making - Medical Decision Making 11/04/18 18:42 48F with PMH of pericardial effusion and DVT's on eliquis who presents with 2 weeks of shortness of breath. POCUS shows small pericardial effusion without tamponade physiology and no PTX. CXR negative. Labs WNL. 11/04/18 19:30 Case d/w Dr. Pedro who agrees to assess for PE with CTA due to pt's pleuritic CP. Pending CTA. 11/04/18 22:15 Pt signed out to Dr. Blanchard for further evaluation. *DC/Admit/Observation/Transfer Diagnosis at time of Disposition: Chest pain Qualifiers: Chest pain type: unspecified Qualified Code(s): R07.9 - Chest pain, unspecified - Discharge Dispostion Disposition: HOME Condition at time of disposition: Stable - Referrals Referrals: Federico Ye MD [Primary Care Provider] - - Patient Instructions Printed Discharge Instructions: DI for Atypical Chest Pain Additional Instructions: You were seen in the Emergency Department for evaluation of chest pain. Your labs were unremarkable and your CT was negative for blood clot in your lungs. Review the handout provided at discharge. Follow up with your primary care provider within the next 3-5 days. Return to the Emergency Department if you develop fevers/chills, - Post Discharge Activity
[2018-11-04 18:39] LABS: INR 1.32 (0.83-1.09); PROTHROMBIN TIME (PATIENT) 15.6 SEC (9.7-13.0)
[2018-11-04 18:40] LABS: PH,URINE 5.5 (5.0-8.0); URINE APPEARANCE CLEAR; URINE BILIRUBIN NEGATIVE (NEGATIVE); URINE COLOR YELLOW; URINE GLUCOSE (UA) NEGATIVE (NEGATIVE); URINE KETONE NEGATIVE (NEGATIVE); URINE LEUK ESTERASE NEGATIVE (NEGATIVE); URINE NITRITE NEGATIVE (NEGATIVE); URINE PROTEIN NEGATIVE (NEGATIVE); URINE UROBILINOGEN 0.2 mg/dL (0.2-1.0)
--- NOTE | 2018-11-04 22:16 | PDOC ---
*Physical Exam - Vital Signs Last Vital Signs Temp Pulse Resp BP Pulse Ox 98.2 F 69 16 133/76 99 11/04/18 16:37 11/04/18 16:37 11/04/18 16:37 11/04/18 16:37 11/04/18 16:37 ED Treatment Course - LABORATORY CBC & Chemistry Diagram: 11/04/18 16:47 11/04/18 16:47 - ADDITIONAL ORDERS Additional order review: Laboratory Results 11/04/18 11/04/18 11/04/18 21:10 18:13 16:47 PT with INR INR Sodium 137 Potassium 3.3 L Chloride 100 Carbon Dioxide 29 Anion Gap 8 BUN 13 Creatinine 0.6 Est GFR (CKD-EPI)AfAm 124.05 Est GFR (CKD-EPI)NonAf 107.03 Random Glucose 84 Calcium 9.3 Magnesium 2.1 Total Bilirubin 0.2 AST 18 ALT 23 Alkaline Phosphatase 91 Creatine Kinase 66 Troponin I < 0.02 B-Natriuretic Peptide 166.4 H Total Protein 8.0 Albumin 3.8 Serum , Qual Negative Urine Color Yellow Urine Appearance Clear Urine pH 5.5 Ur Specific [place] 1.004 L Urine Protein Negative Urine Glucose (UA) Negative Urine Ketones Negative Urine Blood Negative Urine Nitrite Negative Urine Bilirubin Negative Urine Urobilinogen 0.2 Ur Leukocyte Esterase Negative 11/04/18 16:47 PT with INR 15.60 H INR 1.32 H Sodium Potassium Chloride Carbon Dioxide Anion Gap BUN Creatinine Est GFR (CKD-EPI)AfAm Est GFR (CKD-EPI)NonAf Random Glucose Calcium Magnesium Total Bilirubin AST ALT Alkaline Phosphatase Creatine Kinase Troponin I B-Natriuretic Peptide Total Protein Albumin Serum , Qual Urine Color Urine Appearance Urine pH Ur Specific [place] Urine Protein Urine Glucose (UA) Urine Ketones Urine Blood Urine Nitrite Urine Bilirubin Urine Urobilinogen Ur Leukocyte Esterase 11/04/18 16:47 RBC 4.00 MCV 87.9 MCHC 33.7 RDW 16.4 H MPV 9.5 D Neutrophils % 55.4 Lymphocytes % 34.3 Monocytes % 7.6 Eosinophils % 2.0 Basophils % 0.7 - Medications Given in the ED: ED Medications Discontinued Medications Generic Name Dose Route Start Last Admin Trade Name Freq PRN Reason Stop Dose Admin Acetaminophen 1,000 mg 11/04/18 18:05 11/04/18 18:15 Ofirmev Injection - IVPB 11/04/18 18:06 1,000 mg ONCE ONE Administration Al Hydroxide/Mg Hydroxide 30 ml 11/04/18 18:12 11/04/18 18:48 Mylanta Oral Suspension - PO 11/04/18 18:13 Not Given ONCE ONE Famotidine/Sodium Chloride 20 mg in 50 mls @ 100 mls/hr 11/04/18 18:12 19:07 Pepcid 20 Mg Premixed Ivpb - IVPB 11/04/18 18:41 Not Given ONCE ONE Lidocaine HCl 20 ml 11/04/18 18:12 11/04/18 18:48 Xylocaine 2% Viscous Oral - MM 11/04/18 18:13 Not Given ONCE ONE Potassium Chloride 40 meq 11/04/18 18:04 11/04/18 18:15 K-Dur - PO 11/04/18 18:05 40 meq ONCE ONE Administration Medical Decision Making - Medical Decision Making I have assumed care of the patient from Dr. Joseph, who has discussed the clinical presentation, work-up, and ED course thus far. I have reviewed the patients medical record and ED course and agree with all aspects of care thus far. The pt is a 48F w/ a history of HTN, HLD, bioplar d/o, opioid abuse, previous DVTs, and previous pericardial effusion requiring pericardialcentesis who presents from her PMD's office for concern of recurrent pericardial effusion and chest pain. Patient pending repeat Trop I CTA read pending 11/04/18 22:15 CTA w/o evidence of PE Repeat Trop I neg Results discussed w/ Dr. Pedro Plan for D/C w/ PCP f/u Discharge instructions and return precautions given Pt in agreement and verbalized understanding Dispo: home *DC/Admit/Observation/Transfer Diagnosis at time of Disposition: Chest pain Qualifiers: Chest pain type: unspecified Qualified Code(s): R07.9 - Chest pain, unspecified - Discharge Dispostion Disposition: HOME Condition at time of disposition: Stable Decision to Admit order: No - Referrals Referrals: Federico Ye MD [Primary Care Provider] - - Patient Instructions Printed Discharge Instructions: DI for Atypical Chest Pain Additional Instructions: You were seen in the Emergency Department for evaluation of chest pain. Your labs were unremarkable and your CT was negative for blood clot in your lungs. Review the handout provided at discharge. Follow up with your primary care provider within the next 3-5 days. Return to the Emergency Department if you develop fevers/chills, - Post Discharge Activity
--- NOTE | 2018-11-05 16:13 | EKG ---
Test Reason : Blood Pressure : / mmHG Vent. Rate : 071 BPM Atrial Rate : 071 BPM P-R Int : 154 ms QRS Dur : 092 ms QT Int : 426 ms P-R-T Axes : 054 -07 046 degrees QTc Int : 462 ms NORMAL SINUS RHYTHM INCOMPLETE RIGHT BUNDLE BRANCH BLOCK NONSPECIFIC T WAVE ABNORMALITY PROLONGED QT ABNORMAL ECG WHEN COMPARED WITH ECG OF 25-SEP-2018 18:22, INCOMPLETE RIGHT BUNDLE BRANCH BLOCK IS NOW PRESENT Confirmed by MARCO A LUX MD ([id number]) on 11/05/2018 4:13:00 PM Referred By: Confirmed By:MARCO A LUX MD
== END 2018-11-05 00:57 | disposition home or self-care (01) ==
LOC: JER 16:35
PROC: 3E033NZ Introduction of Analgesics, Hypnotics, Sedatives into Peripheral Vein, Percutaneous Approach (ICD-10-PCS; principal; 2018-11-04)
PROC: B24CZZZ Ultrasonography of Pericardium (ICD-10-PCS; 2018-11-04)
PROC: B246ZZZ Ultrasonography of Right and Left Heart (ICD-10-PCS; 2018-11-04)
PROC: BB4BZZZ Ultrasonography of Pleura (ICD-10-PCS; 2018-11-04)
DX: R07.9 Chest pain, unspecified (principal); I10 Essential (primary) hypertension; E78.5 Hyperlipidemia, unspecified; Z86.718 Personal history of other venous thrombosis and embolism; Z79.01 Long term (current) use of anticoagulants; F11.20 Opioid dependence, uncomplicated; K21.9 Gastro-esophageal reflux disease without esophagitis; R94.5 Abnormal results of liver function studies; F17.210 Nicotine dependence, cigarettes, uncomplicated
CPT/HCPCS: 36415; 71046-TC-FY; 71275-TC; 80053; 81003; 82550; 83735; 83880; 84484; 84703; 85025; 85610; 87086; 93005; 93010; 99282-25; J0131

== ENCOUNTER 2019-02-22 14:42 | Inpatient (IN) | payer OTHER ==
--- NOTE | 2019-02-22 14:44 | PDOC ---
Rapid Medical Evaluation Medical Evaluation: Allergies Allergy/AdvReac Type Severity Reaction Status Date / Time No Known Allergies Allergy Verified 11/04/18 16:37 I have performed a brief in-person evaluation of this patient. The patient presents with a chief complaint of: Hx of HTN, HLD, Bipolar disorder , Opiod abuse (on methadone), multiple DVTs (RUE, on eliquis), recurrent pericardial effusion and pneumothorax presents with increased swelling RUE x 2 weeks along with chest pain and SOB x 1 week Pertinent physical exam findings: Lungs clear, no pedal edema, no calf tenderness I have ordered the following: Labs, EKG, CXR The patient will proceed to the ED for further evaluation. 02/22/19 14:44
[2019-02-22 15:16] LABS: EOS % 1.7 % (0-4.5); HEMATOCRIT 34.1 % (32.4-45.2); HEMOGLOBIN 11.8 GM/dL (10.7-15.3); LYMPH % 34.5 % (8-40); MCH 31.8 pg (25.7-33.7); MCHC 34.6 g/dl (32.0-36.0); MEAN CELL VOLUME 91.7 fl (80-96); MEAN PLT VOLUME 8.8 fl (7.5-11.1); MONO % 7.6 % (3.8-10.2); NEUT % 55.2 % (42.8-82.8); PLATELET COUNT 282 K/MM3 (134-434); RBC 3.72 M/mm3 (3.60-5.2); RDW 17.6 % (11.6-15.6); WHITE BLOOD COUNT 6.8 K/mm3 (4.0-10.0)
--- NOTE | 2019-02-22 15:26 | PDOC ---
History of Present Illness - General Chief Complaint: Chest Pain Stated Complaint: LIGHTHEADED Time Seen by Provider: 02/22/19 14:43 History Source: Patient Exam Limitations: No Limitations - History of Present Illness Initial Comments: 02/22/19 15:27 48y F hx of htn, hl, bipolar, multiple dvts (formerly on eliquis,dc'd by herself after 3 months and never followed up again), hx of pleural effusion and pericardial effusion, ?ptx, presents with 1 week of RUE swelling, and chest pain. Pt notes soem swelling an dmild pain in the RUE edema. Pt also endorses 1 week of L chets pain in the back worse with breathing endorses some sob/carrera. Pt denies any fever/chills, cough, hemoptysis, leg swelling, orthopnea. PMD: Dr.James Ye Past History - Past Medical History Allergies/Adverse Reactions: Allergies Allergy/AdvReac Type Severity Reaction Status Date / Time No Known Allergies Allergy Verified 02/22/19 14:50 Home Medications: Ambulatory Orders Omeprazole [Prilosec (RX)] 40 mg PO DAILY #0 capsule. 05/20/13 Ranitidine HCl [Zantac] 150 mg PO BID PRN #10 tablet 05/20/13 Simvastatin [Zocor -] 10 mg PO HS #0 tablet 05/20/13 Apixaban [Eliquis -] 5 mg PO BID #60 tablet 08/30/18 Methadone [Dolophine -] 90 mg PO DAILY@0900 #30 tablet MDD 1 08/30/18 Methylnaltrexone [place] [Relistor -] 12 mg SQ DAILY #30 kit 08/30/18 Quetiapine Fumarate [Seroquel] 300 mg PO HS #30 tablet 09/16/18 Quetiapine Fumarate [Seroquel -] 50 mg PO HS #14 tablet 10/14/18 Apixaban [Eliquis -] 5 mg PO BID #14 tablet 02/23/19 Citalopram Hydrobromide [Celexa -] 20 mg PO DAILY #14 tablet 02/26/19 Docusate Sodium [Colace -] 100 mg PO TID #90 capsule 02/26/19 Hydrochlorothiazide [Hctz -] 12.5 mg PO DAILY 30 Days #30 cap 02/26/19 Anemia: Yes Asthma: No Cancer: No Cardiac Disorders: Yes (PERICARDIAL EFFUSION, PNEUMOTHORAX) CVA: No COPD: No CHF: No Dementia: No Diabetes: No GI Disorders: Yes (gerd) Disorders: No HTN: Yes Hypercholesterolemia: Yes Liver Disease: Yes (liver enzymes elevated) Seizures: No Thyroid Disease: No Other medical history: CLOT IN R ARM - Surgical History Abdominal Surgery: No Appendectomy: No Cardiac Surgery: No Cholecystectomy: No Lung Surgery: No Neurologic Surgery: Yes (R ganglion cyst removed) Orthopedic Surgery: No - Immunization History Immunization Up to Date: Yes - Suicide/Smoking/Psychosocial Hx Smoking History: Current every day smoker Have you smoked in the past 12 months: Yes Number of Cigarettes Smoked Daily: 5 Information on smoking cessation initiated: No Hx Alcohol Use: Yes Drug/Substance Use Hx: No Substance Use Type: Alcohol, Cocaine, Heroin Hx Substance Use Treatment: Yes ([facility], [facility]) Cardiac Specific PMH - Complaint Specific PMHX Pacemaker: No Review of Systems - Review of Systems Able to Perform ROS?: Yes Comments:: 02/22/19 15:34 Constitutional - no reported Fever, Chills, HEENT: no reported vision changes, sore throat Respiratory: +sob, no reported cough, hemoptysis Cardiac: +chest pain radiating to back, no reported palpitations, light headedness, leg swelling Abd/GI: no reported abd pain, nausea, vomiting, blood per rectum, melena, diarrhea : no reported dysuria, frequency, discharge Musculskelatal - +R arm swellnig no reported back pain, joint swelling skin - no reported bruising, erythema, rash neurological: no reported headache, numbness, focal weakness, tingling, ataxia, hematologic: no reported easy bruising, easy bleeding *Physical Exam - Vital Signs Last Vital Signs Temp Pulse Resp BP Pulse Ox 98.7 F 104 H 18 135/10 L 99 02/26/19 10:00 02/26/19 10:00 02/26/19 10:02/26/19 10:02/25/19 21:00 - Physical Exam Comments: 02/22/19 15:40 GENERAL: The patient is awake, alert, and fully oriented, Nontoxic - in no acute distress. obese HEAD: Normocephalic, atraumatic. EYES: extraocular movements intact, sclera anicteric, conjunctiva clear. ENT: Normal voice, Moist mucous membranes. NECK: Normal range of motion, supple LUNGS: Breath sounds equal, clear to auscultation bilaterally. No wheezes, no rhonchi, no rales. HEART: Regular rate and rhythm, normal S1 and S2 without murmur, rub or gallop. ABDOMEN: Soft, nontender, No guarding, no rebound. No CVA tenderness EXTREMITIES: Normal range of motion, +RUE nonpitting edema (mostly on forearm) NEUROLOGICAL: No facial assymetry, Normal speech, moiving all 4 extremities spontaneously and symmetrically PSYCH: Normal mood, normal affect. SKIN: Warm, Dry, normal turgor, MSK: MIld reproducible tenderness to the L scapula/msk region, no signs of rash , erythema, induration Heart Score/ECG Review - ECG Impressions Comment:: 02/22/19 15:40 Twelve-lead EKG was performed and reviewed by me. There is normal sinus rhythm with a normal rate. rate of 97 The intervals are normal. Nonspecific twi ED Treatment Course - LABORATORY CBC & Chemistry Diagram: 02/26/19 07:35 02/26/19 07:35 - ADDITIONAL ORDERS Additional order review: 02/22/19 15:02 RBC 3.72 MCV 91.7 MCHC 34.6 RDW 17.6 H MPV 8.8 Neutrophils % 55.2 Lymphocytes % 34.5 Monocytes % 7.6 Eosinophils % 1.7 Basophils % 1.0 - RADIOLOGY Radiology Studies Ordered: Category Date Time Status CHEST CTA [CT] Stat CT Scan 02/22/19 20:22 Completed - Medications Given in the ED: ED Medications Discontinued Medications Generic Name Dose Route Start Last Admin Trade Name Freq PRN Reason Stop Dose Admin Docusate Sodium 200 mg 02/23/19 06:00 02/25/19 13:15 Colace - PO 200 mg TID ALAN Administration Lactulose 20 gm 02/23/19 02:51 02/23/19 03:28 Cephulac (Oral Use) PO 02/23/19 02:52 20 gm ONCE ONE Administration Methylnaltrexone [place] 12 mg 02/23/19 10:00 02/25/19 10:32 Relistor - SQ Not Given DAILY ALAN Pantoprazole Sodium 40 mg 02/23/19 07:00 02/25/19 06:59 Protonix - PO 40 mg ACBK ALAN Administration Quetiapine Fumarate 300 mg 02/23/19 05:15 02/23/19 05:35 Seroquel - PO 02/23/19 05:16 300 mg ONCE ONE Administration Warfarin Sodium 5 mg 02/25/19 22:12 02/25/19 23:04 Coumadin - PO 02/25/19 22:13 5 mg NOW ONE Administration Medical Decision Making - Medical Decision Making 02/22/19 15:46 ddx - will obtain US to ro RUE dvt cp - suspect msk as it is reproducible, but in light of hx of multiple coagulation disorders and not being on a/cm, will obtain ddimer will [facility] monitor labs including cbc, trop, cmp, bnp iwill reassess 02/22/19 18:51 pts RUE dvt worse dimer negative awaiting CTA to r/o PE will sign out to evening team for dispo *DC/Admit/Observation/Transfer Diagnosis at time of Disposition: DVT (deep venous thrombosis) - Discharge Dispostion Condition at time of disposition: Good - Prescriptions - Referrals - Patient Instructions - Post Discharge Activity
[2019-02-22 15:29] LABS: INR 1.31 (0.83-1.09); PROTHROMBIN TIME (PATIENT) 15.5 SEC (9.7-13.0)
[2019-02-22 15:32] LABS: ACTIVATED PTT 40.5 SECONDS (25.2-36.5)
[2019-02-22 15:43] LABS: ALK PHOS 86 U/L (45-117); ANION GAP 13 MMOL/L (8-16); BILIRUBIN,TOTAL 0.3 mg/dL (0.2-1); BLOOD UREA NITROGEN 11.2 mg/dL (7-18); CALCIUM 9.4 mg/dL (8.5-10.1); CHLORIDE 93 mmol/L (98-107); CO2 27 mmol/L (21-32); GLUCOSE,RANDOM 101 mg/dL (74-106); POTASSIUM 3.6 mmol/L (3.5-5.1); SGOT/AST 18 U/L (15-37); SGPT/ALT 19 U/L (13-61); SODIUM 133 mmol/L (136-145); TOT PROT 8.3 g/dl (6.4-8.2)
[2019-02-22 15:59] LABS: N-TERMINAL BNP 31.4 pg/ml (5-125)
--- NOTE | 2019-02-22 20:12 | PDOC ---
*Physical Exam - Vital Signs Last Vital Signs Temp Pulse Resp BP Pulse Ox 97.9 F 112 H 18 104/58 L 95 02/22/19 14:43 02/22/19 14:43 02/22/19 14:43 02/22/19 14:43 02/22/19 14:43 ED Treatment Course - LABORATORY CBC & Chemistry Diagram: 02/22/19 15:02 02/22/19 15:02 - ADDITIONAL ORDERS Additional order review: Laboratory Results 02/22/19 02/22/19 02/22/19 15:02 15:02 15:02 PT with INR Cancelled INR Cancelled PTT (Actin FS) D-Dimer < 215 Sodium 133 L Potassium 3.6 Chloride 93 L Carbon Dioxide 27 Anion Gap 13 BUN 11.2 Creatinine 1.0 Est GFR (CKD-EPI)AfAm 76.61 Est GFR (CKD-EPI)NonAf 66.10 Random Glucose 101 Calcium 9.4 Total Bilirubin 0.3 AST 18 ALT 19 Alkaline Phosphatase 86 Troponin I < 0.02 B-Natriuretic Peptide 31.4 Total Protein 8.3 H Albumin 4.0 02/22/19 15:02 PT with INR 15.50 H INR 1.31 H PTT ([place] FS) 40.5 H D-Dimer Sodium Potassium Chloride Carbon Dioxide Anion Gap BUN Creatinine Est GFR (CKD-EPI)AfAm Est GFR (CKD-EPI)NonAf Random Glucose Calcium Total Bilirubin AST ALT Alkaline Phosphatase Troponin I B-Natriuretic Peptide Total Protein Albumin 02/22/19 15:02 RBC 3.72 MCV 91.7 MCHC 34.6 RDW 17.6 H MPV 8.8 Neutrophils % 55.2 Lymphocytes % 34.5 Monocytes % 7.6 Eosinophils % 1.7 Basophils % 1.0 Medical Decision Making - Medical Decision Making 02/22/19 20:10 48F with a PMH of DVT's, formerly on eliquis, presents with worsening R UE swelling and pleuritic CP. Pt has negative D-dimer but is high risk. Pending CTA. Vitals WNL. Pt well appearing otherwise. 02/23/19 01:28 CTA negative. Will d/c pt on prior eliquis dose and PCP f/u tomorrow morning. 02/23/19 01:39 Pt states that she has been taking her eliquis and did not have any period of time where she was not taking it. Paging Dr. Pedro for admission of progressing DVT despite taking eliquis. 02/23/19 02:18 Pt endorsed to [employer]TELL[employer] AD[employer]ISTR[employer] hospitalist. 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
[2019-02-23] MEDS ORDERED: LACTULOSE 20 GM/30 ML UDC (FOR ORAL USE ONLY) PO ONE (02:51)
--- NOTE | 2019-02-23 04:02 | HP ---
CHIEF COMPLAINT: right arm swelling, chest pain PCP:Dr. Santoro HISTORY OF PRESENT ILLNESS: 48 year old female with PMHx of HTN, HLD, Bipolar disorder, Opiod abuse ( on methadone), multiple DVTs ( RUE, was on eliquis), recurrent pericardial effusion arrived to emergency room for increased swelling to right upper extremity for 2 weeks, at times with pleuritic chest pain with on/off sob. Patient denies any fever, chills, cough, orthopnea, dizziness, headache. ER course was notable for: Dupex; right arm DVT, increase thrombus right brachial vein D- dimer: negative, Trops: negative CTA: negative Recent Travel:no PAST MEDICAL HISTORY: htn, hld, bipolar, multiple dvts, pleural/pericardial effusion PAST SURGICAL HISTORY:R ganglion cyst removed Social History: Smokin-3 cig a day Alcohol:weekend 2-3 beer Drugs: 15 year of heroin use, now on methadone program 3 years Family History: Mother ( : [place], HTN), Sister ( HTN) Allergies: No Known Allergies Allergy (Verified 02/22/19 14:50) HOME MEDICATIONS: Home Medications Medication Instructions Recorded Hydrochlorothiazide [Hctz -] 12.5 mg PO DAILY #0 cap 05/20/13 Omeprazole [Prilosec (RX)] 40 mg PO DAILY #0 capsule. 05/20/13 Ranitidine HCl [Zantac] 150 mg PO BID PRN #10 tablet 05/20/13 Simvastatin [Zocor -] 10 mg PO HS #0 tablet 05/20/13 Apixaban [Eliquis -] 5 mg PO BID #60 tablet 08/30/18 Docusate Sodium [Colace -] 100 mg PO TID #90 capsule 08/30/18 Methadone [Dolophine -] 90 mg PO DAILY@0900 #30 tablet MDD 08/30/18 1 Methylnaltrexone [place] [Relistor 12 mg SQ DAILY #30 kit 08/30/18 -] Quetiapine Fumarate [Seroquel] 300 mg PO HS #30 tablet 09/16/18 Citalopram Hydrobromide [Celexa -] 20 mg PO DAILY #14 tablet 10/14/18 Quetiapine Fumarate [Seroquel -] 50 mg PO HS #14 tablet 10/14/18 Apixaban [Eliquis -] 5 mg PO BID #14 tablet 02/23/19 REVIEW OF SYSTEMS Constitutional: denies: Fever, Chills, HEENT: vinay: sore throat, ear, eye pain Respiratory: +sob, denies, wheezing, cough, hemoptysis Cardiac: +chest pain radiating to back, denies: palpitations, light headedness Abd: + constipation denies abd pain, nausea, vomiting, melena, diarrhea : denies: hematuria, dysuria, frequency, discharge Musculoskeletal : denies back pain, joint swelling Extremity: +R arm swellnig Skin: denies bruising, erythema, rash Neurological: vinay headache, numbness, focal weakness, tingling, ataxia, PHYSICAL EXAMINATION Vital Signs - 24 hr 02/22/19 02/22/19 02/23/19 14:43 22:47 02:09 Temperature 97.9 F 98.5 F Pulse Rate 112 H Pulse Rate [ 89 88 Right Radial] Respiratory 18 19 18 Rate Blood Pressure 104/58 L Blood Pressure 128/59 L 152/94 [Left Arm] O2 Sat by Pulse 95 99 99 Oximetry (%) GENERAL: awake, alert, and fully oriented, NAD HEENT: NC/AT,EOMI PERRLA, NO JVD LUNGS: Breath sounds equal, clear to auscultation bilaterally. No wheezes, no rhonchi, no rales. HEART: Regular rate and rhythm, normal S1 and S2 without murmur, rub or gallop. ABDOMEN: Soft, nontender, No guarding, no rebound. No CVA tenderness EXTREMITIES:+RUE non-pitting edema, ROM good NEUROLOGICAL: awake,alert, Normal speech PSYCH: Normal mood &affect. SKIN: Warm, Dry Laboratory Results - last 24 hr 02/22/19 02/22/19 02/22/19 15:02 15:02 15:02 WBC 6.8 RBC 3.72 Hgb 11.8 Hct 34.1 MCV 91.7 MCH 31.8 MCHC 34.6 RDW 17.6 H Plt Count 282 MPV 8.8 Absolute Neuts (auto) 3.8 Neutrophils % 55.2 Lymphocytes % 34.5 Monocytes % 7.6 Eosinophils % 1.7 Basophils % 1.0 Nucleated RBC % 0 PT with INR 15.50 H INR 1.31 H PTT (Actin FS) 40.5 H D-Dimer Sodium 133 L Potassium 3.6 Chloride 93 L Carbon Dioxide 27 Anion Gap 13 BUN 11.2 Creatinine 1.0 Est GFR (CKD-EPI)AfAm 76.61 Est GFR (CKD-EPI)NonAf 66.10 Random Glucose 101 Calcium 9.4 Total Bilirubin 0.3 AST 18 ALT 19 Alkaline Phosphatase 86 Troponin I < 0.02 B-Natriuretic Peptide 31.4 Total Protein 8.3 H Albumin 4.0 02/22/19 02/22/19 15:02 15:02 WBC RBC Hgb Hct MCV MCH MCHC RDW Plt Count MPV Absolute Neuts (auto) Neutrophils % Lymphocytes % Monocytes % Eosinophils % Basophils % Nucleated RBC % PT with INR Cancelled INR Cancelled PTT (Actin FS) D-Dimer < 215 Sodium Potassium Chloride Carbon Dioxide Anion Gap BUN Creatinine Est GFR (CKD-EPI)AfAm Est GFR (CKD-EPI)NonAf Random Glucose Calcium Total Bilirubin AST ALT Alkaline Phosphatase Troponin I B-Natriuretic Peptide Total Protein Albumin ASSESSMENT/PLAN: 48 year old female with PMHx of HTN, HLD, Bipolar disorder, Opiod abuse ( on methadone), multiple DVTs ( RUE, was on eliquis), recurrent pericardial effusion arrived to emergency room for increased swelling to right upper extremity for 2 weeks, at times with pleuritic chest pain with on/off sob. #RUE DVT - was on eliquis (per per patient she was compliant with medication), repeat duplex shows increase thrombus right brachial vein - D-dimer: negative - CTA- negative - Trops: negative - EKG: NSR - start heparin drip - follow PTT - follow up hematology - elevate extremity - Pain management # HTN -Hydrochlorothiazide 12.5 mg PO DAILY #GERD - Omeprazole 40 mg PO DAILY #HLD - Simvastatin 10 mg PO HS # Bipolar disorder - Citalopram Hydrobromide 20 mg PO DAILY - Continue with seroquel 300mg po HS, # constipation - given lactulose 20g x1 - Continue with Colace 200mg HS - Continue with Miralax 34 g BID - Methylnaltrexone [place] 12 mg SQ DAILY # opoid dependence - Methadone 90 mg PO DAILY Diet: JACQUIE regular diet Problem List - Problem (1) Deep vein thrombosis (DVT) of right upper extremity Code(s): I82.621 - ACUTE EMBOLISM AND THROMBOSIS OF DEEP VEINS OF R UP EXTREM Qualifiers: Affected thrombotic vein of extremity: brachial (2) HTN (hypertension) Code(s): I10 - ESSENTIAL (PRIMARY) HYPERTENSION (3) HLD (hyperlipidemia) Code(s): E78.5 - HYPERLIPIDEMIA, UNSPECIFIED (4) GERD (gastroesophageal reflux disease) Code(s): K21.9 - GASTRO-ESOPHAGEAL REFLUX DISEASE WITHOUT ESOPHAGITIS (5) Bipolar 1 disorder Code(s): F31.9 - BIPOLAR DISORDER, UNSPECIFIED (6) Constipation Code(s): K59.00 - CONSTIPATION, UNSPECIFIED (7) Opioid dependence Code(s): F11.20 - OPIOID DEPENDENCE, UNCOMPLICATED Visit type - Emergency Visit Emergency Visit: Yes ED Registration Date: 02/23/19 Care time: The patient presented to the Emergency Department on the above date and was hospitalized for further evaluation of their emergent condition. - New Patient This patient is new to me today: Yes Date on this admission: 02/23/19 - Critical Care Critical Care patient: No
[2019-02-23] MEDS: HEPARIN INFUSION - 25,000 UNITS/500 ML INFUS.BAG IV SCH ×2 (04:41→19:50)
[2019-02-23] MEDS ORDERED: QUEtiapine FUMARATE 300 MG TABLET PO ONE (05:15)
[2019-02-23] MEDS: PANTOPRAZOLE 40 MG TABLET (FP) PO SCH (05:59)
[2019-02-23] MEDS: DOCUSATE SODIUM 100 MG CAPSULE (FP) PO SCH ×3 (06:00→21:19)
[2019-02-23] MEDS ORDERED: METHADONE HCL 10 MG TABLET PO SCH (09:00)
[2019-02-23] MEDS ORDERED: METHADONE HCL 10 MG TABLET ONE (09:23)
[2019-02-23] MEDS ORDERED: METHADONE HCL 40 MG DISPERSABLE TABLET ONE (09:23)
[2019-02-23] MEDS ORDERED: PT OWN MED DRAWER 7, Y5N ONE ×2 (09:24→21:23)
[2019-02-23] MEDS: METHADONE 80 MG, METHADONE 10 MG PO SCH (09:30)
[2019-02-23] MEDS: CITALOPRAM HYDROBROMIDE 20 MG TABLET (FP) PO SCH (09:34)
[2019-02-23] MEDS: HYDROCHLOROTHIAZIDE 12.5 MG CAPSULE (FP) PO SCH (09:34)
[2019-02-23] MEDS: Methylnaltrexone Bromide 12 MG/0.6 ML KIT SQ SCH (09:34)
[2019-02-23] MEDS ORDERED: PATIENT'S OWN MEDICATION (NON-FORMULARY) (Omeprazole [Prilosec (Rx)] 40 MG) PO SCH (10:00)
[2019-02-23] MEDS ORDERED: ONDANSETRON 4 MG/2 ML VIAL IVPUSH PRN (10:50)
--- NOTE | 2019-02-23 11:14 | EKG ---
Test Reason : Blood Pressure : / mmHG Vent. Rate : 097 BPM Atrial Rate : 097 BPM P-R Int : 146 ms QRS Dur : 076 ms QT Int : 350 ms P-R-T Axes : 074 -05 069 degrees QTc Int : 444 ms POOR DATA QUALITY, INTERPRETATION MAY BE ADVERSELY AFFECTED NORMAL SINUS RHYTHM POSSIBLE LEFT ATRIAL ENLARGEMENT NONSPECIFIC T WAVE ABNORMALITY ABNORMAL ECG WHEN COMPARED WITH ECG OF 04-NOV-2018 16:43, NO SIGNIFICANT CHANGE WAS FOUND Confirmed by Richard Cain MD ([id number]) on 02/23/2019 11:14:01 AM Referred By: Confirmed By:Richard Cain MD
--- NOTE | 2019-02-23 13:36 | CON.GI ---
Consult - History of Present Illness History of Present Illness: GI CONSULT DICTATED - CLEAR LIQUID DIET - PPI - ANTIEMETIC - CT ABD PELVIS ORDERED - C/W BOWEL REGIMEN - SEE CONSULT FOR DETAILS - Past Medical History [employer]: Yes: CVA, Dementia, Migraine, Multiple Sclerosis, Parkinson's, Seizure, Syncope, TIA, Vertigo, Other Cardio/Vascular: Yes: HTN Gastrointestinal: Yes: GERD Hepatobiliary: Yes: Other (fatty liver) ...LMP: 03/30/18 Psych: Yes: Anxiety Musculoskeletal: Yes: Chronic low back pain Additional Medical History: CHRONIC BACK PAIN - Past Surgical History Past Surgical History: Yes: Colonoscopy (2-3 yrs ago as per pt) - Alcohol/Substance Use Hx Alcohol Use: Yes Number of Drinks Daily: 3 History of Substance Use: reports: Cocaine, Heroin - Smoking History Smoking history: Current every day smoker Have you smoked in the past 12 months: Yes Aproximately how many cigarettes per day: 5 - Social History Usual Living Arrangement: With Spouse Occupation: not working History of Recent Travel: No Home Medications - Allergies Allergies/Adverse Reactions: Allergies Allergy/AdvReac Type Severity Reaction Status Date / Time No Known Allergies Allergy Verified 02/22/19 14:50 - Home Medications Home Medications: Ambulatory Orders Hydrochlorothiazide [Hctz -] 12.5 mg PO DAILY #0 cap 05/20/13 Omeprazole [Prilosec (RX)] 40 mg PO DAILY #0 capsule. 05/20/13 Ranitidine HCl [Zantac] 150 mg PO BID PRN #10 tablet 05/20/13 Simvastatin [Zocor -] 10 mg PO HS #0 tablet 05/20/13 Apixaban [Eliquis -] 5 mg PO BID #60 tablet 08/30/18 Docusate Sodium [Colace -] 100 mg PO TID #90 capsule 08/30/18 Methadone [Dolophine -] 90 mg PO DAILY@0900 #30 tablet MDD 1 08/30/18 Methylnaltrexone [place] [Relistor -] 12 mg SQ DAILY #30 kit 08/30/18 Quetiapine Fumarate [Seroquel] 300 mg PO HS #30 tablet 09/16/18 Citalopram Hydrobromide [Celexa -] 20 mg PO DAILY #14 tablet 10/14/18 Quetiapine Fumarate [Seroquel -] 50 mg PO HS #14 tablet 10/14/18 Apixaban [Eliquis -] 5 mg PO BID #14 tablet 02/23/19 Family Disease History - Family Disease History Family Disease History: Heart Disease: Mother, Other: Grandparent (MGF- throat ca ), Father (gunshot ) Physical Exam-GI Vital Signs: Vital Signs Temperature 98.3 F 02/23/19 06:00 Pulse Rate 81 02/23/19 06:00 Respiratory Rate 18 02/23/19 06:00 Blood Pressure 110/51 L 02/23/19 06:00 O2 Sat by Pulse Oximetry (%) 98 02/23/19 03:00 Labs: CBC, BMP 02/22/19 15:02 02/22/19 15:02 INR, PTT INR 1.31 (0.83-1.09) H 02/22/19 15:02
--- NOTE | 2019-02-23 17:23 | PN ---
Progress Note (short form) - Note Progress Note: Patient seen and examined --Consult dictated 48 year old presents with swelling of the RUE and is found to have progression of Right brachial DVT initially evident in 2018. States she has been compliant with her eliquis and missed only one dose on one day since eliquis was instituted. On methadone and continuing to smoke ( 3 cigarettes per day). No family history of blood clots Hx of pleural effusion and pericardial effusion drained in 08/2018 at [facility]. Complains of abdominal pains and is constipated now currently on Relistor. Patient will need thrombophilia work up. If she truly has failed eliquis then she may require lovenox or change to coumadin Would have vascular follow up. Would obtain abdominal and pelvic CT , mammography and colonoscopy in future as part of work up.
--- NOTE | 2019-02-23 19:29 | CONS ---
DATE OF CONSULTATION: 02/23/2019 HISTORY OF PRESENT ILLNESS: This 48-year-old female presents with right upper extremity swelling which is apparently worsening over the past 2 weeks. The patient has a history of DVT of the right upper extremity from previously, and apparently there has bee progress of the right upper extremity DVT. The patient also is hospitalized at [facility] for paracardial and pleural effusions, both of which require drainage. SOCIAL HISTORY: The patient is on methadone maintenance. The patient states she smokes cigarettes, does not take alcohol, illicit drugs at this point in time. FAMILY HISTORY: No family history of blood clots. No family history of malignancy. PAST MEDICAL HISTORY: Includes hypertension, hyperlipidemia, DVT, pleural disease, pericardial disease, bipolar in the chart. SURGICAL HISTORY: Ganglion cyst removed. ALLERGIES: No known allergies. CURRENT MEDICATIONS AT HOME: , Prilosec, Zantac, Zocor, Eliquis 5 b.i.d., Colace, methadone 90 per day, Relistor, Seroquel 300, Celexa 20, Seroquel 50. REVIEW OF SYSTEMS: Patient complains of headaches. Patient has glaucoma. Denies epistaxis. No dysphagia, sore throat, shortness of breath, chest pain, pleuritic type chest pain. Cardiac regular. GERD. Constipation. Dysuria. No vaginal bleeding. CURRENT PHYSICAL EXAMINATION: Vital Signs: Blood pressure 150/91, pulse 104, respirations 20, temperature 98.2. HEENT: JEFF, EOM intact. Oropharynx unremarkable. Lungs: Poor inspiratory effort. Cardiac: RSR. Breast: Without masses. Abdomen: Distended. Extremities: No significant edema. LABORATORY: WBC 6.8, hematocrit 34, platelets 282, with 55 polycytes, 34 lymphocytes, 7 monocytes. Chemistries: 133 sodium, potassium , chloride 93, CO2 of 27, BUN 11, creatinine 1. EGFR 76. Calcium 9.4, bilirubin 0.3, AST 18, ALT 19, alkaline phosphatase 86, protein 8.3, albumin 4.0. Duplex right upper extremity with progression of thrombus right brachial area. CT of chest, no pulmonary emboli. Right middle lobe via bronchogram. IMPRESSION: A 48-year-old female who states she has been compliant with her Eliquis therapy presents with progression of a right upper extremity DVT. Patient will need a thrombophilia workup. If she indeed has failed Eliquis, she may be a candidate for Lovenox therapy. If this is not feasible, then patient will require anticoagulation with Coumadin. JAMES MITCHELL M.D. [facility]LL/[id number]
--- NOTE | 2019-02-23 20:04 | CONS ---
GASTROINTESTINAL CONSULTATION DATE OF CONSULTATION: DATE OF DICTATION: 02/23/2019 HISTORY: Patient is a 48-year-old female with a past medical history of hypertension, hyperlipidemia, bipolar disorder, opioid abuse on methadone, chronic constipation on Relistor, multiple DVTs on anticoagulation with Eliquis, recurrent pericardial effusion who is admitted to the hospital with complaints of right upper quadrant swelling for over 2 weeks and pleuritic chest pain with intermittent shortness of breath. During her course here at the hospital, she has developed symptoms of nausea, vomiting, and also some abdominal discomfort with associated constipation. She is a very poor historian. She denies any melanoma, hematochezia, or hematemesis. She does admit to chills. She has not had a colonoscopy or upper endoscopy. PAST MEDICAL HISTORY: As listed in the HPI. PAST SURGICAL HISTORY: As listed in the HPI with the addition of a right ganglion cyst removal. SOCIAL HISTORY: She smokes cigarettes. She drinks alcohol on the weekend 2-3 beers. She is a previous heroin user for 15 years and now is on a methadone program and currently is receiving methadone. FAMILY HISTORY: Unable to obtain an accurate history. ALLERGIES: No known drug allergies. HOME MEDICATIONS: Include hydrochlorothiazide, Prilosec, Zantac, Zocor, Eliquis, Colace, methadone, Relistor, Seroquel, Celexa. REVIEW OF SYSTEMS: As per the HPI. PHYSICAL EXAMINATION: Vital Signs: Temperature 98, pulse 104, respiratory rate 12, blood pressure 150/91, saturation of oxygen 98% on room air. General: No acute distress. HEENT: Anicteric sclerae. Cardiovascular: S1, S2. Regular rate and rhythm. Lungs: Bilaterally clear to auscultation. Abdomen: Tender in the lower quadrants without any rebound or guarding. Extremities: With edema. LABORATORIES: White blood cell count 6.8, hemoglobin 11, hematocrit 34, MCV 91, platelet count 282, INR 1.3. Sodium 133, potassium 3.6, BUN 11, creatinine 1, bilirubin 0.3, AST 18, ALT 19. Troponin negative. Alkaline phosphatase 86. She did not have any abdominal imaging during this hospitalization. She did have an abdomen and pelvis CT scan in August 2018, which revealed diffuse, fatty infiltration of the liver. No masses were visualized at the time. No lymphadenopathy. IMPRESSION: Nausea, vomiting, abdominal discomfort. Also with constipation. Her symptoms may be secondary to chronic constipation, viral syndrome, underlying infectious process. RECOMMENDATION: CT scan of the abdomen and pelvis with contrast. Antiemetics for nausea and vomiting. Start her on Protonix 40 mg p.o. daily. She can have a clear liquid diet, which can be advanced as tolerated. Once she is optimized from a medical perspective, she can be scheduled and would benefit from a diagnostic upper endoscopy as well as a colonoscopy. This patient will be followed by the GI service. DO CAROLINA VELEZ/[id number]
[2019-02-23] MEDS ORDERED: HEPARIN NA (PORCINE) 5,000 UNITS/ML 1ML VIAL IVPUSH PRN (21:11)
[2019-02-23] MEDS: ATORVASTATIN CA 10 MG TABLET (FP) PO SCH (21:19)
[2019-02-23] MEDS: QUEtiapine FUMARATE 300 MG TABLET PO SCH (21:24)
[2019-02-23] MEDS: HEPARIN NA (PORCINE) 5,000 UNITS/ML 1ML VIAL IVPUSH PRN (21:25)
[2019-02-23] MEDS ORDERED: PATIENT'S OWN MEDICATION (NON-FORMULARY) (Simvastatin 10 MG) PO SCH (22:00)
[2019-02-24] MEDS: HEPARIN INFUSION - 25,000 UNITS/500 ML INFUS.BAG IV SCH ×3 (04:05→12:03)
[2019-02-24] MEDS ORDERED: PT OWN MED DRAWER 7, Y5N ONE ×4 (04:07→12:54)
[2019-02-24] MEDS ORDERED: METHADONE HCL 40 MG DISPERSABLE TABLET ONE (06:35)
[2019-02-24] MEDS ORDERED: METHADONE HCL 10 MG TABLET ONE (06:36)
[2019-02-24] MEDS: METHADONE 80 MG, METHADONE 10 MG PO SCH (06:38)
[2019-02-24] MEDS: DOCUSATE SODIUM 100 MG CAPSULE (FP) PO SCH ×3 (06:39→22:16)
[2019-02-24] MEDS: PANTOPRAZOLE 40 MG TABLET (FP) PO SCH (06:39)
[2019-02-24] MEDS: HYDROCHLOROTHIAZIDE 12.5 MG CAPSULE (FP) PO SCH (10:14)
[2019-02-24] MEDS: CITALOPRAM HYDROBROMIDE 20 MG TABLET (FP) PO SCH (10:14)
[2019-02-24] MEDS: Methylnaltrexone Bromide 12 MG/0.6 ML KIT SQ SCH (10:22)
[2019-02-24] MEDS: ACETAMINOPHEN 325 MG TABLET (FP) PO PRN (10:34)
[2019-02-24 10:48] LABS: HEMATOCRIT 34.9 % (32.4-45.2); MCH 31.7 pg (25.7-33.7); MCHC 34.4 g/dl (32.0-36.0); MEAN CELL VOLUME 92.2 fl (80-96); MEAN PLT VOLUME 8.7 fl (7.5-11.1); PLATELET COUNT 272 K/MM3 (134-434); RBC 3.79 M/mm3 (3.60-5.2); RDW 17.4 % (11.6-15.6); WHITE BLOOD COUNT 10.2 K/mm3 (4.0-10.0)
[2019-02-24 11:12] LABS: CALCIUM 9.8 mg/dL (8.5-10.1); POTASSIUM 3.5 mmol/L (3.5-5.1)
--- NOTE | 2019-02-24 11:53 | PN ---
Physical Exam: SUBJECTIVE: Patient seen and examined. She complains of pain and swelling of her right arm. OBJECTIVE: Vital Signs Period Temp Pulse Resp BP Sys/Hernandez Pulse Ox Last 24 Hr 98.2 F-99.0 F 89-107 20-20 116-150/71-92 GENERAL: The patient is awake, alert, and fully oriented, in no acute distress. LUNGS: Breath sounds equal, clear to auscultation bilaterally, no wheezes, no crackles, no accessory muscle use. HEART: Regular rate and rhythm, S1, S2 without murmur, rub or gallop. ABDOMEN: Obese, soft, nontender, nondistended, normoactive bowel sounds, no guarding, no rebound, no hepatosplenomegaly, no masses. EXTREMITIES: 2+ pulses, warm, well-perfused, RUE swollen. Laboratory Results - last 24 hr 02/23/19 02/23/19 02/24/19 16:10 16:10 02:00 WBC RBC Hgb Hct MCV MCH MCHC RDW Plt Count 283 MPV PTT (Actin FS) 29.3 120.8 H Sodium Potassium Chloride Carbon Dioxide Anion Gap BUN Creatinine Est GFR (CKD-EPI)AfAm Est GFR (CKD-EPI)NonAf Random Glucose Calcium 02/24/19 02/24/19 02/24/19 10:35 10:35 10:35 WBC 10.2 H RBC 3.79 Hgb 12.0 Hct 34.9 MCV 92.2 MCH 31.7 MCHC 34.4 RDW 17.4 H Plt Count 272 MPV 8.7 PTT (Actin FS) 33.9 Sodium 134 L Potassium 3.5 Chloride 94 L Carbon Dioxide 30 Anion Gap 10 BUN 8.0 Creatinine 1.0 Est GFR (CKD-EPI)AfAm 76.61 Est GFR (CKD-EPI)NonAf 66.10 Random Glucose 98 Calcium 9.8 Active Medications Generic Name Dose Route Start Last Admin Trade Name Freq PRN Reason Stop Dose Admin Acetaminophen 650 mg 02/23/19 03:57 02/24/19 10:34 Tylenol - PO 650 mg Q4H PRN Administration PAIN Atorvastatin Calcium 10 mg 02/23/19 22:00 02/23/19 21:19 Lipitor - PO 10 mg HS ALAN Administration Citalopram Hydrobromide 20 mg 02/23/19 10:00 02/24/19 10:14 Celexa - PO 20 mg DAILY [facility] Administration Docusate Sodium 200 mg 02/23/19 06:00 02/24/19 06:39 Colace - PO Not Given TID [facility] Heparin Sodium (Porcine) 5,000 unit 02/23/19 21:10 02/23/19 21:25 Heparin - IVPUSH 5,000 unit PRN PRN Administration Heparin Heparin Sodium (Porcine) 1,000 unit 02/23/19 21:11 Heparin - IVPUSH PRN PRN Heparin Hydrochlorothiazide 12.5 mg 02/23/19 10:00 02/24/19 10:14 Hctz - PO 12.5 mg DAILY [facility] Administration Heparin Sodium/Dextrose 25,000 units in 500 mls @ 20 mls/hr 02/23/19 04:15 05:22 Heparin Infusion - IV 850 units/hr TITR ALAN 17 mls/hr Administration Protocol 1,000 UNITS/HR Methadone HCl 80 mg/ Methadone 90 mg 02/23/19 09:15 02/24/19 06:38 HCl 10 mg PO 90 mg 0600 [facility] Administration Methylnaltrexone [place] 12 mg 02/23/19 10:00 02/24/19 10:22 Relistor - SQ Not Given DAILY [facility] Ondansetron HCl 4 mg 02/23/19 10:50 Zofran Injection IVPUSH Q6H PRN NAUSEA AND/OR VOMITING Pantoprazole Sodium 40 mg 02/23/19 07:00 02/24/19 06:39 Protonix - PO 40 mg ACBK ALAN Administration Quetiapine Fumarate 300 mg 02/23/19 22:00 02/23/19 21:24 Seroquel - PO 300 mg HS [facility] Administration Ranitidine HCl 150 mg 02/23/19 04:11 Zantac - PO BID PRN PAIN ASSESSMENT/PLAN: 1. RUE DVT - ? failed Eliquis - Continue heparin IV drip - Thrombophilia work-up in progress 2. HTN - Continue HCTZ 3. Hyperlipidemia - Continue Lipitor 4. GERD - Continue Protonix 5. Bipolar disorder - Continue Celexa, Seroquel 6. Chronic constipation - Likely opioid induced - CT A/P ordered - Continue Relistor 7. Opioid dependence - On Methadone maintenance Visit type - Emergency Visit Emergency Visit: Yes ED Registration Date: 02/23/19 Care time: The patient presented to the Emergency Department on the above date and was hospitalized for further evaluation of their emergent condition. - New Patient This patient is new to me today: Yes Date on this admission: 02/24/19 - Critical Care Critical Care patient: No - Discharge Referral Referred to [facility] Med P.C.: No
[2019-02-24] MEDS: HEPARIN NA (PORCINE) 5,000 UNITS/ML 1ML VIAL IVPUSH PRN (12:00)
--- NOTE | 2019-02-24 15:44 | PN.GI ---
GI Progress Note Subjective: Pt seen/examined at bedside, sitting up, feeling better, abdominal pain improved , had large bm yesterday. Pending CT today. - Objective Vital Signs: Vital Signs Temperature 99.1 F 02/24/19 14:19 Pulse Rate 94 H 02/24/19 14:19 Respiratory Rate 18 02/24/19 14:19 Blood Pressure 126/59 L 02/24/19 14:19 O2 Sat by Pulse Oximetry (%) 99 02/23/19 09:00 Constitutional: Well Nourished, No Distress, Calm Cardiovascular: Yes: WNL, Regular Rate and Rhythm Respiratory: Yes: WNL, Regular, CTA Bilaterally ...Palpate: Yes: Other (Abd soft, nt, nd) Labs: CBC, BMP 02/24/19 10:35 02/24/19 10:35 INR, PTT INR 1.31 (0.83-1.09) H 02/22/19 15:02 Problem List - Problems (1) Constipation Assessment/Plan: 48yo female h/o HTN, opioid abuse on methadone, chronic constipation on relistor , recurrent DVTs on eliquis presenting with arm pain/swelling and abdominal pain. Had large bm yesterday and feeling better. CT abd/pelvis pending. -Await CT abd/pelvis results -Pending results can further modify bowel regimen as likely component of constipation -Further recommendations including hypercoagulable workup per hematology -Pending above and once further optimized can determine timing of endoscopy Code(s): K59.00 - CONSTIPATION, UNSPECIFIED
[2019-02-24 19:00] LABS: INR 1.12 (0.83-1.09); PROTHROMBIN TIME (PATIENT) 13.2 SEC (9.7-13.0)
[2019-02-24 19:02] LABS: ACTIVATED PTT 62.2 SECONDS (25.2-36.5)
[2019-02-24] MEDS: QUEtiapine FUMARATE 300 MG TABLET PO SCH (22:16)
[2019-02-24] MEDS: ATORVASTATIN CA 10 MG TABLET (FP) PO SCH (22:16)
[2019-02-25] MEDS ORDERED: METHADONE HCL 10 MG TABLET ONE (05:49)
[2019-02-25] MEDS ORDERED: METHADONE HCL 40 MG DISPERSABLE TABLET ONE (05:49)
[2019-02-25] MEDS: METHADONE 80 MG, METHADONE 10 MG PO SCH (06:57)
[2019-02-25] MEDS: PANTOPRAZOLE 40 MG TABLET (FP) PO SCH (06:59)
[2019-02-25] MEDS: DOCUSATE SODIUM 100 MG CAPSULE (FP) PO SCH ×2 (07:00→13:15)
[2019-02-25] MEDS: HEPARIN INFUSION - 25,000 UNITS/500 ML INFUS.BAG IV SCH ×2 (07:06→10:23)
[2019-02-25 08:17] LABS: BLOOD UREA NITROGEN 7.9 mg/dL (7-18); CALCIUM 9.5 mg/dL (8.5-10.1); CREATININE 0.8 mg/dL (0.55-1.3); POTASSIUM 3.4 mmol/L (3.5-5.1)
[2019-02-25] MEDS: ACETAMINOPHEN 325 MG TABLET (FP) PO PRN (09:10)
[2019-02-25] MEDS ORDERED: PT OWN MED DRAWER 7, Y5N ONE (10:00)
[2019-02-25 10:04] LABS: HEMOGLOBIN 11.1 GM/dL (10.7-15.3); MCH 31.7 pg (25.7-33.7); MCHC 34.7 g/dl (32.0-36.0); MEAN CELL VOLUME 91.4 fl (80-96); MEAN PLT VOLUME 9.4 fl (7.5-11.1); PLATELET COUNT 229 K/MM3 (134-434)
[2019-02-25] MEDS: HYDROCHLOROTHIAZIDE 12.5 MG CAPSULE (FP) PO SCH (10:26)
[2019-02-25] MEDS: CITALOPRAM HYDROBROMIDE 20 MG TABLET (FP) PO SCH (10:26)
[2019-02-25] MEDS: Methylnaltrexone Bromide 12 MG/0.6 ML KIT SQ SCH ×2 (10:26→10:32)
--- NOTE | 2019-02-25 15:09 | PN.GI ---
GI Progress Note Subjective: No acute events No abdominal pain today - Objective Vital Signs: Vital Signs Temperature 98.2 F 02/25/19 10:00 Pulse Rate 109 H 02/25/19 10:00 Respiratory Rate 18 02/25/19 10:00 Blood Pressure 120/83 02/25/19 10:00 O2 Sat by Pulse Oximetry (%) 98 02/24/19 21:00 Labs: CBC, BMP 02/25/19 06:45 02/25/19 06:45 INR, PTT INR 1.12 (0.83-1.09) H 02/24/19 17:30
--- NOTE | 2019-02-25 15:18 | PN.GI ---
GI Progress Note Subjective: No abdominal pain Believes that she had EGD/Colonoscopy 4-5 months ago that were unrevealing. She believes it was here, however, in review of [employer] there were no records of recent procedures. Alternatively, she thinks they may have been done at [place]. No BM today CT scan unrevealing in terms of bowel pathology. - Objective Vital Signs: Vital Signs Temperature 97.9 F 02/25/19 15:10 Pulse Rate 81 02/25/19 15:10 Respiratory Rate 20 02/25/19 15:10 Blood Pressure 135/80 02/25/19 15:10 O2 Sat by Pulse Oximetry (%) 98 02/24/19 21:00 Constitutional: Calm Eyes: No: Sclera Icterus Cardiovascular: Yes: Regular Rate and Rhythm Respiratory: Yes: CTA Bilaterally Gastrointestinal Inspection: No: Distention ...Auscultate: Yes: Normoactive Bowel Sounds ...Palpate: Yes: Soft ...Percussion: No: Tympanitic Edema: No (No LE Edema) Edema: RUE: 1+ Neurological: Yes: Alert Labs: CBC, BMP 02/25/19 06:45 02/25/19 06:45 INR, PTT INR 1.12 (0.83-1.09) H 02/24/19 17:30 Problem List - Problems (1) Constipation Assessment/Plan: Likely opioid induced combination laxative therapy is still the first line treatment options. Can use cobination of osmotic and stimulant laxative therapy. If patient not responding, then can resume relistor. Doubt that colace alone will suffice. Doscontinue Relistor for now MiraLAX 17g BID with senna 2 tabs at night Code(s): K59.00 - CONSTIPATION, UNSPECIFIED Qualifiers: Constipation type: drug induced constipation Qualified Code(s): K59.03 - Drug induced constipation
[2019-02-25] MEDS: RANITIDINE HCL 150 MG TABLET (FP) PO PRN (18:02)
--- NOTE | 2019-02-25 22:10 | PN ---
Progress Note, Physician - Current Medication List Current Medications: Active Medications Acetaminophen (Tylenol -) 650 mg PO Q4H PRN PRN Reason: PAIN Last Admin: 02/25/19 09:10 Dose: 650 mg Atorvastatin Calcium (Lipitor -) 10 mg PO HS [facility] Last Admin: 02/24/19 22:16 Dose: 10 mg Citalopram Hydrobromide (Celexa -) 20 mg PO DAILY [facility] Last Admin: 02/25/19 10:26 Dose: 20 mg Heparin Sodium (Porcine) (Heparin -) 5,000 unit IVPUSH PRN PRN PRN Reason: Heparin Last Admin: 02/24/19 12:00 Dose: 5,000 unit Heparin Sodium (Porcine) (Heparin -) 1,000 unit IVPUSH PRN PRN PRN Reason: Heparin Last Admin: 02/25/19 10:26 Dose: 1,000 unit Hydrochlorothiazide (Hctz -) 12.5 mg PO DAILY [facility] Last Admin: 02/25/19 10:26 Dose: 12.5 mg Heparin Sodium/Dextrose (Heparin Infusion -) 25,000 units in 500 mls @ 20 mls/ hr IV TITR ALAN; Protocol Last Admin: 02/25/19 10:23 Dose: 1,100 units/hr, 22 mls/hr Methadone HCl 80 mg/ Methadone (HCl 10 mg) 90 mg PO 0600 [facility] Last Admin: 02/25/19 06:57 Dose: 90 mg Ondansetron HCl (Zofran Injection) 4 mg IVPUSH Q6H PRN PRN Reason: NAUSEA AND/OR VOMITING Polyethylene Glycol (Miralax (For Daily Use) -) 17 gm PO BID [facility] Quetiapine Fumarate (Seroquel -) 300 mg PO [facility] Last Admin: 02/24/19 22:16 Dose: 300 mg Ranitidine HCl (Zantac -) 150 mg PO BID PRN PRN Reason: PAIN Last Admin: 02/25/19 18:02 Dose: 150 mg Senna (Senna Oral Solution -) 8.8 mg PO [facility] - Objective Vital Signs: Vital Signs Temperature 98.7 F 02/25/19 18:00 Pulse Rate 87 02/25/19 18:00 Respiratory Rate 20 02/25/19 18:00 Blood Pressure 143/97 02/25/19 18:00 O2 Sat by Pulse Oximetry (%) 98 02/25/19 09:00 Labs: CBC, BMP 02/25/19 06:45 02/25/19 06:45 INR, PTT INR 1.12 (0.83-1.09) H 02/24/19 17:30
[2019-02-25] MEDS ORDERED: WARFARIN NA 5 MG TABLET (UD) PO ONE (22:12)
[2019-02-25] MEDS: QUEtiapine FUMARATE 300 MG TABLET PO SCH (23:04)
[2019-02-25] MEDS: ATORVASTATIN CA 10 MG TABLET (FP) PO SCH (23:04)
[2019-02-25] MEDS: POLYETHYLENE GLYCOL 3350 119 GM BTL PO SCH (23:05)
[2019-02-25] MEDS: SENNOSIDES 8.8 MG/5 ML BULK BOTTLE PO SCH (23:05)
[2019-02-26] MEDS ORDERED: METHADONE HCL 10 MG TABLET ONE ×2 (06:22→10:11)
[2019-02-26] MEDS ORDERED: METHADONE HCL 40 MG DISPERSABLE TABLET ONE ×2 (06:22→10:11)
[2019-02-26] MEDS: HEPARIN INFUSION - 25,000 UNITS/500 ML INFUS.BAG IV SCH ×2 (06:43→15:40)
[2019-02-26] MEDS: METHADONE 80 MG, METHADONE 10 MG PO SCH ×2 (06:44→10:17)
[2019-02-26 08:14] LABS: BASO % 0.8 % (0-2.0); EOS % 2.3 % (0-4.5); HEMATOCRIT 31.2 % (32.4-45.2); LYMPH % 35.1 % (8-40); MCH 32.4 pg (25.7-33.7); MCHC 35.4 g/dl (32.0-36.0); MEAN CELL VOLUME 91.6 fl (80-96); MEAN PLT VOLUME 8.7 fl (7.5-11.1); MONO % 7.2 % (3.8-10.2); NEUT % 54.6 % (42.8-82.8); PLATELET COUNT 231 K/MM3 (134-434); RDW 16.6 % (11.6-15.6); WHITE BLOOD COUNT 6.5 K/mm3 (4.0-10.0)
[2019-02-26 08:27] LABS: INR 1.03 (0.83-1.09); PROTHROMBIN TIME (PATIENT) 12.1 SEC (9.7-13.0)
[2019-02-26 08:30] LABS: ACTIVATED PTT 51.2 SECONDS (25.2-36.5)
[2019-02-26 08:38] LABS: ALBUMIN 3.5 g/dl (3.4-5.0); BILIRUBIN,TOTAL 0.3 mg/dL (0.2-1); BLOOD UREA NITROGEN 8.7 mg/dL (7-18); CALCIUM 9.7 mg/dL (8.5-10.1); CREATININE 0.9 mg/dL (0.55-1.3); POTASSIUM 3.5 mmol/L (3.5-5.1)
[2019-02-26] MEDS: HYDROCHLOROTHIAZIDE 12.5 MG CAPSULE (FP) PO SCH (10:16)
[2019-02-26] MEDS: RANITIDINE HCL 150 MG TABLET (FP) PO PRN (10:17)
[2019-02-26] MEDS: CITALOPRAM HYDROBROMIDE 20 MG TABLET (FP) PO SCH (10:17)
[2019-02-26] MEDS: POLYETHYLENE GLYCOL 3350 119 GM BTL PO SCH ×2 (10:23→22:26)
[2019-02-26 14:46] VITALS: BMI 44.0
--- NOTE | 2019-02-26 15:38 | CONSULT ---
- Consultation REQUESTING PROVIDER: CONSULT REQUEST: We have been asked to surgically evaluate this patient for RUE DVT. PCP:Nereyda Pedro HISTORY OF PRESENT ILLNESS: 48 y/o F w/ PMHx HTN, HLD, Bipolar disorder, Opiod abuse ( on methadone), multiple DVTs ( RUE, was on eliquis), recurrent pericardial effusion now a/w increased edema of RUE for the past 2 weeks. Per documentation pt initially developed DVT in August (unable to visualize duplex in system-osh?). Pt reports pain has increased pain over the past few weeks. Had CTA done revealing no PE. reports she is unsure how DVT began, denies any line placement, IVs/blood draws etc at time of initial DVT. Denies personal or family h/o dvt. Per EMR pt admitted in August 2018, found to have RUE DVT and initiated on Eliquis which she reports compliance with. Of note, elevated tumor markers were found and were to be evaluated as outpt, pt unable to specify whetther this has been done or not. PMHx: as above PSHx: denies Home Medications Medication Instructions Recorded Omeprazole [Prilosec (RX)] 40 mg PO DAILY #0 capsule. 05/20/13 Ranitidine HCl [Zantac] 150 mg PO BID PRN #10 tablet 05/20/13 Simvastatin [Zocor -] 10 mg PO HS #0 tablet 05/20/13 Apixaban [Eliquis -] 5 mg PO BID #60 tablet 08/30/18 Methadone [Dolophine -] 90 mg PO DAILY@0900 #30 tablet MDD 08/30/18 1 Methylnaltrexone Partridge [Relistor 12 mg SQ DAILY #30 kit 08/30/18 -] Quetiapine Fumarate [Seroquel] 300 mg PO HS #30 tablet 09/16/18 Quetiapine Fumarate [Seroquel -] 50 mg PO HS #14 tablet 10/14/18 Apixaban [Eliquis -] 5 mg PO BID #14 tablet 02/23/19 Citalopram Hydrobromide [Celexa -] 20 mg PO DAILY #14 tablet 02/26/19 Docusate Sodium [Colace -] 100 mg PO TID #90 capsule 02/26/19 Hydrochlorothiazide [Hctz -] 12.5 mg PO DAILY 30 Days #30 cap 02/26/19 Allergies Allergy/AdvReac Type Severity Reaction Status Date / Time No Known Allergies Allergy Verified 02/22/19 14:50 REVIEW OF SYSTEMS: CONSTITUTIONAL: Absent: fever, chills RESPIRATORY: Absent: cough GASTROINTESTINAL: Absent: abdominal pain PHYSICAL EXAM: GENERAL: Awake, alert, and fully oriented, in no acute distress. HEAD: Normal with no signs of trauma. UPPER EXTREMITIES: RUE with 2+ edema, compartments soft, +TTP in distal forearm/ hand per pt. LUE with IV in place, no evidence of edema. 2+ radial/ulnar pulses , warm, well-perfused. No cyanosis. Cap refill <2 seconds. Vital Signs Temperature 98.7 F 02/26/19 10:00 Pulse Rate 104 H 02/26/19 10:00 Respiratory Rate 18 02/26/19 10:00 Blood Pressure 135/10 L 02/26/19 10:00 O2 Sat by Pulse Oximetry (%) 99 02/25/19 21:00 Lab Results WBC 6.5 K/mm3 (4.0-10.0) 02/26/19 07:35 RBC 3.40 M/mm3 (3.60-5.2) L 02/26/19 07:35 Hgb 11.0 GM/dL (10.7-15.3) 02/26/19 07:35 Hct 31.2 % (32.4-45.2) L 02/26/19 07:35 MCV 91.6 fl (80-96) 02/26/19 07:35 MCHC 35.4 g/dl (32.0-36.0) 02/26/19 07:35 RDW 16.6 % (11.6-15.6) H 02/26/19 07:35 Plt Count 231 K/MM3 (134-434) 02/26/19 07:35 Sodium 137 mmol/L (136-145) 02/26/19 07:35 Potassium 3.5 mmol/L (3.5-5.1) 02/26/19 07:35 Chloride 96 mmol/L (98-107) L 02/26/19 07:35 Carbon Dioxide 34 mmol/L (21-32) H 02/26/19 07:35 Anion Gap 6 MMOL/L (8-16) L 02/26/19 07:35 BUN 8.7 mg/dL (7-18) 02/26/19 07:35 Creatinine 0.9 mg/dL (0.55-1.3) 02/26/19 07:35 Random Glucose 85 mg/dL (74-106) 02/26/19 07:35 Calcium 9.7 mg/dL (8.5-10.1) 02/26/19 07:35 INR 1.03 (0.83-1.09) 02/26/19 07:35 A/P: 48 y/o F w/ PMHx HTN, HLD, Bipolar disorder, Opioid abuse ( on methadone) , multiple DVTs ( RUE, was on eliquis), recurrent pericardial effusion now a/w increased edema of RUE for the past 2 weeks. Duplex this admission with progressive R brachial thrombus (unable to locate old duplex) per documentation pt had DVT found in August and was sent home with Eliquis -Continue anticoagulation per primary team -Agree with hematology consult if pt has not had one -RUE elevation while at rest d/w attending Dr Limon
[2019-02-26] MEDS ORDERED: WARFARIN NA 2.5 MG TABLET (FP) PO ONE (18:00)
[2019-02-26] MEDS ORDERED: WARFARIN NA 5 MG TABLET (UD) PO ONE (18:00)
--- NOTE | 2019-02-26 18:50 | PN ---
Physical Exam: Hematology/Oncology Progress Note SUBJECTIVE: Patient seen and examined, currently endorses mild pain but otherwise no acute distress. OBJECTIVE: Vital Signs Period Temp Pulse Resp BP Sys/Hernandez Pulse Ox Last 24 Hr 97.7 F-98.7 F 76-104 18-20 117-154/10-85 99 GENERAL: A&Ox3, no acute distress EYES: PERRLA, EOMI ENT: Moist mucus membranes NECK: No JVD LUNGS: CTA, no wheezes HEART: RRR, no murmurs ABDOMEN: Soft, nontender, BS present MUSCULOSKELETAL: No CVA Tenderness EXTREMITIES: 2+ pulses, RUE tenderness and swollen NEUROLOGICAL: Cranial nerves II-XII intact. Laboratory Results - last 24 hr 02/24/19 02/26/19 02/26/19 10:35 07:35 07:35 WBC 6.5 RBC 3.40 L Hgb 11.0 Hct 31.2 L MCV 91.6 MCH 32.4 MCHC 35.4 RDW 16.6 H Plt Count 231 MPV 8.7 Absolute Neuts (auto) 3.6 Neutrophils % 54.6 Lymphocytes % 35.1 Monocytes % 7.2 Eosinophils % 2.3 Basophils % 0.8 Nucleated RBC % 0 PT with INR 12.10 INR 1.03 PTT (Actin FS) 51.2 H Sodium Potassium Chloride Carbon Dioxide Anion Gap BUN Creatinine Est GFR (CKD-EPI)AfAm Est GFR (CKD-EPI)NonAf Random Glucose Calcium Total Bilirubin AST ALT Alkaline Phosphatase Total Protein Albumin BREANA Screen Negative 02/26/19 02/26/19 07:35 07:35 WBC RBC Hgb Hct MCV MCH MCHC RDW Plt Count MPV Absolute Neuts (auto) Neutrophils % Lymphocytes % Monocytes % Eosinophils % Basophils % Nucleated RBC % PT with INR Cancelled INR Cancelled PTT (Actin FS) Sodium 137 Potassium 3.5 Chloride 96 L Carbon Dioxide 34 H Anion Gap 6 L BUN 8.7 Creatinine 0.9 Est GFR (CKD-EPI)AfAm 87.02 Est GFR (CKD-EPI)NonAf 75.08 Random Glucose 85 Calcium 9.7 Total Bilirubin 0.3 AST 19 ALT 19 Alkaline Phosphatase 69 Total Protein 7.0 Albumin 3.5 BREANA Screen Active Medications Generic Name Dose Route Start Last Admin Trade Name Freq PRN Reason Stop Dose Admin Acetaminophen 650 mg 02/23/19 03:57 02/25/19 09:10 Tylenol - PO 650 mg Q4H PRN Administration PAIN Atorvastatin Calcium 10 mg 02/23/19 22:00 02/25/19 23:04 Lipitor - PO 10 mg HS ALAN Administration Citalopram Hydrobromide 20 mg 02/23/19 10:00 02/26/19 10:17 Celexa - PO 20 mg DAILY ALAN Administration Heparin Sodium (Porcine) 5,000 unit 02/23/19 21:10 02/24/19 12:00 Heparin - IVPUSH 5,000 unit PRN PRN Administration Heparin Heparin Sodium (Porcine) 1,000 unit 02/23/19 21:11 02/25/19 10:26 Heparin - IVPUSH 1,000 unit PRN PRN Administration Heparin Hydrochlorothiazide 12.5 mg 02/23/19 10:00 02/26/19 10:16 Hctz - PO 12.5 mg DAILY ALAN Administration Heparin Sodium/Dextrose 25,000 units in 500 mls @ 20 mls/hr 02/23/19 04:15 15:40 Heparin Infusion - IV 1,100 units/hr TITR ALAN 22 mls/hr Administration Protocol 1,000 UNITS/HR Methadone HCl 80 mg/ Methadone 90 mg 02/23/19 09:15 02/26/19 10:17 HCl 10 mg PO 90 mg 0600 ALAN Administration Ondansetron HCl 4 mg 02/23/19 10:50 Zofran Injection IVPUSH Q6H PRN NAUSEA AND/OR VOMITING Polyethylene Glycol 17 gm 02/25/19 22:00 02/26/19 10:23 Miralax (For Daily Use) - PO 17 gm BID ALAN Administration Quetiapine Fumarate 300 mg 02/23/19 22:00 02/25/19 23:04 Seroquel - PO 300 mg HS ALAN Administration Ranitidine HCl 150 mg 02/23/19 04:11 02/26/19 10:17 Zantac - PO 150 mg BID PRN Administration PAIN Senna 8.8 mg 02/25/19 22:00 02/25/19 23:05 Senna Oral Solution - PO 8.8 mg HS ALAN Administration ASSESSMENT/PLAN: 48 year old female with PMHx of HTN, HLD, Bipolar disorder, Opiod abuse ( on methadone), multiple DVTs ( RUE, was on eliquis), recurrent pericardial effusion admitted to the hospital for RUE DVT #RUE DVT: ordered hypercoagulability workup (factor V Leiden, lupus anticoagulant, homocysteine, methylene tetrahydrofolate reductase, anticardiolipin, factor II prothrombin) -currently on heparin ggt -consider transitioning to lovenox if insurance permits, may need to be on coumadin if insurance does not cover lovenox -needs residential AC due to failed eliquis, will need to follow with PCP Visit type - Emergency Visit Emergency Visit: No - New Patient This patient is new to me today: No - Critical Care Critical Care patient: No ATTENDING PHYSICIAN STATEMENT I saw and evaluated the patient. I reviewed the resident's note and discussed the case with the resident. I agree with the resident's findings and plan as documented. SUBJECTIVE: OBJECTIVE: ASSESSMENT AND PLAN:
[2019-02-26] MEDS ORDERED: PT OWN MED DRAWER 7, Y5N ONE (22:18)
[2019-02-26] MEDS: QUEtiapine FUMARATE 300 MG TABLET PO SCH (22:25)
[2019-02-26] MEDS: ATORVASTATIN CA 10 MG TABLET (FP) PO SCH (22:25)
[2019-02-26] MEDS: SENNOSIDES 8.8 MG/5 ML BULK BOTTLE PO SCH (22:26)
--- NOTE | 2019-02-26 22:54 | PN ---
Progress Note, Physician - Current Medication List Current Medications: Active Medications Acetaminophen (Tylenol -) 650 mg PO Q4H PRN PRN Reason: PAIN Last Admin: 02/25/19 09:10 Dose: 650 mg Atorvastatin Calcium (Lipitor -) 10 mg PO HS [facility] Last Admin: 02/26/19 22:25 Dose: 10 mg Citalopram Hydrobromide (Celexa -) 20 mg PO DAILY [facility] Last Admin: 02/26/19 10:17 Dose: 20 mg Heparin Sodium (Porcine) (Heparin -) 5,000 unit IVPUSH PRN PRN PRN Reason: Heparin Last Admin: 02/24/19 12:00 Dose: 5,000 unit Heparin Sodium (Porcine) (Heparin -) 1,000 unit IVPUSH PRN PRN PRN Reason: Heparin Last Admin: 02/25/19 10:26 Dose: 1,000 unit Hydrochlorothiazide (Hctz -) 12.5 mg PO DAILY [facility] Last Admin: 02/26/19 10:16 Dose: 12.5 mg Heparin Sodium/Dextrose (Heparin Infusion -) 25,000 units in 500 mls @ 20 mls/ hr IV TITR ALAN; Protocol Last Admin: 02/26/19 15:40 Dose: 1,100 units/hr, 22 mls/hr Methadone HCl 80 mg/ Methadone (HCl 10 mg) 90 mg PO 0600 [facility] Last Admin: 02/26/19 10:17 Dose: 90 mg Ondansetron HCl (Zofran Injection) 4 mg IVPUSH Q6H PRN PRN Reason: NAUSEA AND/OR VOMITING Polyethylene Glycol (Miralax (For Daily Use) -) 17 gm PO BID [facility] Last Admin: 02/26/19 22:26 Dose: 17 gm Quetiapine Fumarate (Seroquel -) 300 mg PO HS [facility] Last Admin: 02/26/19 22:25 Dose: 300 mg Ranitidine HCl (Zantac -) 150 mg PO BID PRN PRN Reason: PAIN Last Admin: 02/26/19 10:17 Dose: 150 mg Senna (Senna Oral Solution -) 8.8 mg PO HS [facility] Last Admin: 02/26/19 22:26 Dose: 8.8 mg - Objective Vital Signs: Vital Signs Temperature 98.3 F 02/26/19 18:00 Pulse Rate 84 02/26/19 18:00 Respiratory Rate 18 19 10:00 Blood Pressure 147/82 02/26/19 18:00 O2 Sat by Pulse Oximetry (%) 99 02/26/19 09:00 Labs: CBC, BMP 02/26/19 07:35 02/26/19 07:35 INR, PTT INR 1.03 (0.83-1.09) 02/26/19 07:35
[2019-02-27] MEDS: HEPARIN INFUSION - 25,000 UNITS/500 ML INFUS.BAG IV SCH ×2 (04:45→13:45)
[2019-02-27] MEDS ORDERED: METHADONE HCL 40 MG DISPERSABLE TABLET ONE ×2 (05:30→09:30)
[2019-02-27] MEDS ORDERED: METHADONE HCL 10 MG TABLET ONE ×2 (05:30→09:30)
[2019-02-27] MEDS: METHADONE 80 MG, METHADONE 10 MG PO SCH (09:40)
[2019-02-27] MEDS: CITALOPRAM HYDROBROMIDE 20 MG TABLET (FP) PO SCH (09:41)
[2019-02-27] MEDS: RANITIDINE HCL 150 MG TABLET (FP) PO PRN (09:41)
[2019-02-27] MEDS: HYDROCHLOROTHIAZIDE 12.5 MG CAPSULE (FP) PO SCH (09:41)
[2019-02-27] MEDS: POLYETHYLENE GLYCOL 3350 119 GM BTL PO SCH ×2 (09:42→22:02)
[2019-02-27 10:13] LABS: HEMATOCRIT 33.1 % (32.4-45.2); HEMOGLOBIN 11.5 GM/dL (10.7-15.3); MCHC 34.8 g/dl (32.0-36.0); MEAN CELL VOLUME 91.9 fl (80-96); MEAN PLT VOLUME 8.9 fl (7.5-11.1); PLATELET COUNT 253 K/MM3 (134-434); RDW 16.7 % (11.6-15.6); WHITE BLOOD COUNT 6.8 K/mm3 (4.0-10.0)
[2019-02-27 12:36] LABS: INR 1.03 (0.83-1.09); PROTHROMBIN TIME (PATIENT) 12.1 SEC (9.7-13.0)
[2019-02-27] MEDS: WARFARIN NA 7.5 MG TABLET (FP) PO SCH (17:37)
[2019-02-27] MEDS ORDERED: PT OWN MED DRAWER 7, Y5N ONE (21:08)
[2019-02-27] MEDS: QUEtiapine FUMARATE 300 MG TABLET PO SCH (22:01)
[2019-02-27] MEDS: ATORVASTATIN CA 10 MG TABLET (FP) PO SCH (22:02)
[2019-02-27] MEDS: SENNOSIDES 8.8 MG/5 ML BULK BOTTLE PO SCH (22:51)
--- NOTE | 2019-02-27 23:07 | PN ---
Progress Note, Physician - Current Medication List Current Medications: Active Medications Acetaminophen (Tylenol -) 650 mg PO Q4H PRN PRN Reason: PAIN Last Admin: 02/25/19 09:10 Dose: 650 mg Atorvastatin Calcium (Lipitor -) 10 mg PO HS [facility] Last Admin: 02/27/19 22:02 Dose: 10 mg Citalopram Hydrobromide (Celexa -) 20 mg PO DAILY [facility] Last Admin: 02/27/19 09:41 Dose: 20 mg Heparin Sodium (Porcine) (Heparin -) 5,000 unit IVPUSH PRN PRN PRN Reason: Heparin Last Admin: 02/24/19 12:00 Dose: 5,000 unit Heparin Sodium (Porcine) (Heparin -) 1,000 unit IVPUSH PRN PRN PRN Reason: Heparin Last Admin: 02/25/19 10:26 Dose: 1,000 unit Hydrochlorothiazide (Hctz -) 12.5 mg PO DAILY [facility] Last Admin: 02/27/19 09:41 Dose: 12.5 mg Heparin Sodium/Dextrose (Heparin Infusion -) 25,000 units in 500 mls @ 20 mls/ hr IV TITR ALAN; Protocol Last Admin: 02/27/19 13:45 Dose: 1,100 units/hr, 22 mls/hr Methadone HCl 80 mg/ Methadone (HCl 10 mg) 90 mg PO 0600 [facility] Last Admin: 02/27/19 09:40 Dose: 90 mg Ondansetron HCl (Zofran Injection) 4 mg IVPUSH Q6H PRN PRN Reason: NAUSEA AND/OR VOMITING Polyethylene Glycol (Miralax (For Daily Use) -) 17 gm PO BID [facility] Last Admin: 02/27/19 22:02 Dose: 17 gm Quetiapine Fumarate (Seroquel -) 300 mg PO HS [facility] Last Admin: 02/27/19 22:01 Dose: 300 mg Ranitidine HCl (Zantac -) 150 mg PO BID PRN PRN Reason: PAIN Last Admin: 02/27/19 09:41 Dose: 150 mg Senna (Senna Oral Solution -) 8.8 mg PO HS [facility] Last Admin: 02/27/19 22:51 Dose: 8.8 mg Warfarin Sodium (Coumadin -) 7.5 mg PO DAILY@1800 [facility] Last Admin: 02/27/19 17:37 Dose: 7.5 mg - Objective Vital Signs: Vital Signs Temperature 98.3 F 02/27/19 21:58 Pulse Rate 89 02/27/19 21:58 Respiratory Rate 20 02/27/19 21:58 Blood Pressure 143/90 02/27/19 21:58 O2 Sat by Pulse Oximetry (%) 98 02/27/19 09:35 Labs: CBC, BMP 02/27/19 09:50 02/26/19 07:35 INR, PTT INR 1.03 (0.83-1.09) 02/27/19 09:50
[2019-02-28 09:20] LABS: INR 1.1 (0.83-1.09)
[2019-02-28 09:23] LABS: ACTIVATED PTT 50.6 SECONDS (25.2-36.5)
[2019-02-28] MEDS ORDERED: METHADONE HCL 10 MG TABLET ONE (11:36)
[2019-02-28] MEDS ORDERED: METHADONE HCL 40 MG DISPERSABLE TABLET ONE (11:36)
[2019-02-28] MEDS: HEPARIN INFUSION - 25,000 UNITS/500 ML INFUS.BAG IV SCH (11:40)
[2019-02-28] MEDS: METHADONE 80 MG, METHADONE 10 MG PO SCH (11:41)
[2019-02-28] MEDS: HYDROCHLOROTHIAZIDE 12.5 MG CAPSULE (FP) PO SCH (11:42)
[2019-02-28] MEDS: POLYETHYLENE GLYCOL 3350 119 GM BTL PO SCH ×2 (11:42→22:02)
[2019-02-28] MEDS: CITALOPRAM HYDROBROMIDE 20 MG TABLET (FP) PO SCH (11:42)
[2019-02-28] MEDS: WARFARIN NA 7.5 MG TABLET (FP) PO SCH (18:43)
[2019-02-28] MEDS: ATORVASTATIN CA 10 MG TABLET (FP) PO SCH (22:01)
[2019-02-28] MEDS: SENNOSIDES 8.8 MG/5 ML BULK BOTTLE PO SCH (22:01)
[2019-02-28] MEDS: QUEtiapine FUMARATE 300 MG TABLET PO SCH (22:01)
--- NOTE | 2019-02-28 23:18 | PN ---
Progress Note, Physician - Current Medication List Current Medications: Active Medications Acetaminophen (Tylenol -) 650 mg PO Q4H PRN PRN Reason: PAIN Last Admin: 02/25/19 09:10 Dose: 650 mg Atorvastatin Calcium (Lipitor -) 10 mg PO HS [facility] Last Admin: 02/28/19 22:01 Dose: 10 mg Citalopram Hydrobromide (Celexa -) 20 mg PO DAILY [facility] Last Admin: 02/28/19 11:42 Dose: 20 mg Heparin Sodium (Porcine) (Heparin -) 5,000 unit IVPUSH PRN PRN PRN Reason: Heparin Last Admin: 02/24/19 12:00 Dose: 5,000 unit Heparin Sodium (Porcine) (Heparin -) 1,000 unit IVPUSH PRN PRN PRN Reason: Heparin Last Admin: 02/25/19 10:26 Dose: 1,000 unit Hydrochlorothiazide (Hctz -) 12.5 mg PO DAILY [facility] Last Admin: 02/28/19 11:42 Dose: 12.5 mg Heparin Sodium/Dextrose (Heparin Infusion -) 25,000 units in 500 mls @ 20 mls/ hr IV TITR ALAN; Protocol Last Admin: 02/28/19 11:40 Dose: 1,100 units/hr, 22 mls/hr Methadone HCl 80 mg/ Methadone (HCl 10 mg) 90 mg PO 0600 [facility] Last Admin: 02/28/19 11:41 Dose: 90 mg Ondansetron HCl (Zofran Injection) 4 mg IVPUSH Q6H PRN PRN Reason: NAUSEA AND/OR VOMITING Polyethylene Glycol (Miralax (For Daily Use) -) 17 gm PO BID [facility] Last Admin: 02/28/19 22:02 Dose: 17 gm Quetiapine Fumarate (Seroquel -) 300 mg PO HS [facility] Last Admin: 02/28/19 22:01 Dose: 300 mg Ranitidine HCl (Zantac -) 150 mg PO BID PRN PRN Reason: PAIN Last Admin: 02/27/19 09:41 Dose: 150 mg Senna (Senna Oral Solution -) 8.8 mg PO HS [facility] Last Admin: 02/28/19 22:01 Dose: 8.8 mg Warfarin Sodium (Coumadin -) 7.5 mg PO DAILY@1800 [facility] Last Admin: 02/28/19 18:43 Dose: 7.5 mg - Objective Vital Signs: Vital Signs Temperature 98.3 F 02/28/19 18:00 Pulse Rate 83 02/28/19 18:00 Respiratory Rate 20 02/28/19 18:00 Blood Pressure 133/55 L 02/28/19 18:00 O2 Sat by Pulse Oximetry (%) 97 02/28/19 09:00 Labs: CBC, BMP 02/27/19 09:50 02/26/19 07:35 INR, PTT INR 1.10 (0.83-1.09) H 02/28/19 08:25
[2019-03-01 07:26] LABS: BASO % 0.5 % (0-2.0); EOS % 2.8 % (0-4.5); HEMATOCRIT 31.1 % (32.4-45.2); HEMOGLOBIN 10.9 GM/dL (10.7-15.3); LYMPH % 37.7 % (8-40); MCH 32.1 pg (25.7-33.7); MCHC 35.2 g/dl (32.0-36.0); MEAN CELL VOLUME 91.2 fl (80-96); MEAN PLT VOLUME 8.7 fl (7.5-11.1); MONO % 7.4 % (3.8-10.2); NEUT % 51.6 % (42.8-82.8); PLATELET COUNT 237 K/MM3 (134-434); RBC 3.41 M/mm3 (3.60-5.2); RDW 16.4 % (11.6-15.6); WHITE BLOOD COUNT 6.3 K/mm3 (4.0-10.0)
[2019-03-01 07:29] LABS: INR 1.25 (0.83-1.09); PROTHROMBIN TIME (PATIENT) 14.8 SEC (9.7-13.0)
[2019-03-01 07:32] LABS: ACTIVATED PTT 74.4 SECONDS (25.2-36.5)
[2019-03-01 07:57] LABS: ALBUMIN 3.4 g/dl (3.4-5.0); BILIRUBIN,TOTAL 0.2 mg/dL (0.2-1); BLOOD UREA NITROGEN 10.2 mg/dL (7-18); CALCIUM 9.4 mg/dL (8.5-10.1); POTASSIUM 3.8 mmol/L (3.5-5.1)
[2019-03-01] MEDS ORDERED: METHADONE HCL 10 MG TABLET ONE (11:18)
[2019-03-01] MEDS ORDERED: METHADONE HCL 40 MG DISPERSABLE TABLET ONE (11:18)
[2019-03-01] MEDS: CITALOPRAM HYDROBROMIDE 20 MG TABLET (FP) PO SCH (11:22)
[2019-03-01] MEDS: METHADONE 80 MG, METHADONE 10 MG PO SCH (11:22)
[2019-03-01] MEDS: POLYETHYLENE GLYCOL 3350 119 GM BTL PO SCH ×2 (11:23→21:47)
[2019-03-01] MEDS: HYDROCHLOROTHIAZIDE 12.5 MG CAPSULE (FP) PO SCH (11:23)
[2019-03-01 11:42] LABS: HEMATOCRIT 32.5 % (32.4-45.2); HEMOGLOBIN 11.2 GM/dL (10.7-15.3); MCH 31.7 pg (25.7-33.7); MCHC 34.4 g/dl (32.0-36.0); MEAN CELL VOLUME 92.1 fl (80-96); MEAN PLT VOLUME 8.8 fl (7.5-11.1); PLATELET COUNT 250 K/MM3 (134-434); RBC 3.53 M/mm3 (3.60-5.2); RDW 16.6 % (11.6-15.6); WHITE BLOOD COUNT 6.6 K/mm3 (4.0-10.0)
[2019-03-01 12:08] LABS: DRVVT - 35.4 sec (0.0-47.0)
[2019-03-01] MEDS: HEPARIN INFUSION - 25,000 UNITS/500 ML INFUS.BAG IV SCH (14:47)
[2019-03-01] MEDS: WARFARIN NA 10 MG TABLET (FP) PO SCH (18:13)
[2019-03-01] MEDS: ATORVASTATIN CA 10 MG TABLET (FP) PO SCH (21:47)
[2019-03-01] MEDS: QUEtiapine FUMARATE 300 MG TABLET PO SCH (21:47)
[2019-03-01] MEDS: SENNOSIDES 8.8 MG/5 ML BULK BOTTLE PO SCH (21:47)
--- NOTE | 2019-03-01 21:56 | PN ---
Progress Note, Physician History of Present Illness: Pt complains of pain to LUE - Current Medication List Current Medications: Active Medications Acetaminophen (Tylenol -) 650 mg PO Q4H PRN PRN Reason: PAIN Last Admin: 02/25/19 09:10 Dose: 650 mg Atorvastatin Calcium (Lipitor -) 10 mg PO HS [facility] Last Admin: 03/01/19 21:47 Dose: 10 mg Citalopram Hydrobromide (Celexa -) 20 mg PO DAILY [facility] Last Admin: 03/01/19 11:22 Dose: 20 mg Heparin Sodium (Porcine) (Heparin -) 5,000 unit IVPUSH PRN PRN PRN Reason: Heparin Last Admin: 02/24/19 12:00 Dose: 5,000 unit Heparin Sodium (Porcine) (Heparin -) 1,000 unit IVPUSH PRN PRN PRN Reason: Heparin Last Admin: 02/25/19 10:26 Dose: 1,000 unit Hydrochlorothiazide (Hctz -) 12.5 mg PO DAILY [facility] Last Admin: 03/01/19 11:23 Dose: 12.5 mg Heparin Sodium/Dextrose (Heparin Infusion -) 25,000 units in 500 mls @ 20 mls/ hr IV TITR ALAN; Protocol Last Admin: 03/01/19 14:47 Dose: 1,100 units/hr, 22 mls/hr Methadone HCl 80 mg/ Methadone (HCl 10 mg) 90 mg PO 0600 [facility] Last Admin: 03/01/19 11:22 Dose: 90 mg Ondansetron HCl (Zofran Injection) 4 mg IVPUSH Q6H PRN PRN Reason: NAUSEA AND/OR VOMITING Polyethylene Glycol (Miralax (For Daily Use) -) 17 gm PO BID [facility] Last Admin: 03/01/19 21:47 Dose: 17 gm Quetiapine Fumarate (Seroquel -) 300 mg PO HS [facility] Last Admin: 03/01/19 21:47 Dose: 300 mg Ranitidine HCl (Zantac -) 150 mg PO BID PRN PRN Reason: PAIN Last Admin: 02/27/19 09:41 Dose: 150 mg Senna (Senna Oral Solution -) 8.8 mg PO HS [facility] Last Admin: 03/01/19 21:47 Dose: 8.8 mg Warfarin Sodium (Coumadin -) 10 mg PO DAILY@1800 [facility] Last Admin: 03/01/19 18:13 Dose: 10 mg - Objective Vital Signs: Vital Signs Temperature 98.6 F 03/01/19 18:00 Pulse Rate 85 03/01/19 18:00 Respiratory Rate 20 03/01/19 18:00 Blood Pressure 138/86 03/01/19 18:00 O2 Sat by Pulse Oximetry (%) 97 02/28/19 09:00 Neck: Yes: WNL, Supple Cardiovascular: Yes: WNL Respiratory: Yes: WNL, Regular, CTA Bilaterally Gastrointestinal: Yes: WNL, Normal Bowel Sounds, Soft Labs: CBC, BMP 03/01/19 11:00 03/01/19 06:40 INR, PTT INR 1.25 (0.83-1.09) H 03/01/19 06:40 Problem List - Problems (1) Deep vein thrombosis (DVT) of right upper extremity Assessment/Plan: Cont IV heparin wc is being bridged w/ coumadin Monitor PT/INR Code(s): I82.621 - ACUTE EMBOLISM AND THROMBOSIS OF DEEP VEINS OF R UP EXTREM Qualifiers: Affected thrombotic vein of extremity: brachial (2) GERD (gastroesophageal reflux disease) Code(s): K21.9 - GASTRO-ESOPHAGEAL REFLUX DISEASE WITHOUT ESOPHAGITIS (3) HLD (hyperlipidemia) Code(s): E78.5 - HYPERLIPIDEMIA, UNSPECIFIED (4) HTN (hypertension) Code(s): I10 - ESSENTIAL (PRIMARY) HYPERTENSION (5) Constipation Code(s): K59.00 - CONSTIPATION, UNSPECIFIED (6) Opioid dependence Code(s): F11.20 - OPIOID DEPENDENCE, UNCOMPLICATED
[2019-03-02 06:43] LABS: INR 1.4 (0.83-1.09); PROTHROMBIN TIME (PATIENT) 16.6 SEC (9.7-13.0)
[2019-03-02 06:45] LABS: BASO % 0.6 % (0-2.0); EOS % 3.1 % (0-4.5); HEMATOCRIT 30.7 % (32.4-45.2); HEMOGLOBIN 10.8 GM/dL (10.7-15.3); LYMPH % 31.3 % (8-40); MCH 32.2 pg (25.7-33.7); MCHC 35.1 g/dl (32.0-36.0); MEAN CELL VOLUME 91.7 fl (80-96); MEAN PLT VOLUME 8.9 fl (7.5-11.1); MONO % 7.5 % (3.8-10.2); NEUT % 57.5 % (42.8-82.8); PLATELET COUNT 246 K/MM3 (134-434); RBC 3.34 M/mm3 (3.60-5.2); RDW 16.6 % (11.6-15.6)
[2019-03-02 06:46] LABS: ACTIVATED PTT 79.4 SECONDS (25.2-36.5)
[2019-03-02 06:58] LABS: ALBUMIN 3.4 g/dl (3.4-5.0); BILIRUBIN,TOTAL 0.3 mg/dL (0.2-1); CALCIUM 9.6 mg/dL (8.5-10.1); CREATININE 0.9 mg/dL (0.55-1.3); POTASSIUM 3.8 mmol/L (3.5-5.1)
[2019-03-02] MEDS ORDERED: METHADONE HCL 10 MG TABLET ONE (09:57)
[2019-03-02] MEDS ORDERED: METHADONE HCL 40 MG DISPERSABLE TABLET ONE (09:57)
[2019-03-02] MEDS: HYDROCHLOROTHIAZIDE 12.5 MG CAPSULE (FP) PO SCH (10:16)
[2019-03-02] MEDS: CITALOPRAM HYDROBROMIDE 20 MG TABLET (FP) PO SCH (10:16)
[2019-03-02] MEDS: RANITIDINE HCL 150 MG TABLET (FP) PO PRN (10:16)
[2019-03-02] MEDS: METHADONE 80 MG, METHADONE 10 MG PO SCH (10:16)
[2019-03-02] MEDS: POLYETHYLENE GLYCOL 3350 119 GM BTL PO SCH ×2 (10:17→21:21)
[2019-03-02] MEDS: HEPARIN INFUSION - 25,000 UNITS/500 ML INFUS.BAG IV SCH (14:43)
[2019-03-02] MEDS: WARFARIN NA 10 MG TABLET (FP) PO SCH (18:13)
[2019-03-02] MEDS ORDERED: SODIUM PHOSPHATE/NA BIPHOS 133 ML ENEMA RC ONE (21:00)
[2019-03-02] MEDS: ATORVASTATIN CA 10 MG TABLET (FP) PO SCH (21:20)
[2019-03-02] MEDS: SENNOSIDES 8.8 MG/5 ML BULK BOTTLE PO SCH (21:21)
[2019-03-02] MEDS: QUEtiapine FUMARATE 300 MG TABLET PO SCH (21:21)
--- NOTE | 2019-03-02 23:41 | PN ---
Progress Note, Physician - Current Medication List Current Medications: Active Medications Acetaminophen (Tylenol -) 650 mg PO Q4H PRN PRN Reason: PAIN Last Admin: 02/25/19 09:10 Dose: 650 mg Atorvastatin Calcium (Lipitor -) 10 mg PO HS [facility] Last Admin: 03/02/19 21:20 Dose: 10 mg Citalopram Hydrobromide (Celexa -) 20 mg PO DAILY [facility] Last Admin: 03/02/19 10:16 Dose: 20 mg Heparin Sodium (Porcine) (Heparin -) 5,000 unit IVPUSH PRN PRN PRN Reason: Heparin Last Admin: 02/24/19 12:00 Dose: 5,000 unit Heparin Sodium (Porcine) (Heparin -) 1,000 unit IVPUSH PRN PRN PRN Reason: Heparin Last Admin: 02/25/19 10:26 Dose: 1,000 unit Hydrochlorothiazide (Hctz -) 12.5 mg PO DAILY [facility] Last Admin: 03/02/19 10:16 Dose: 12.5 mg Heparin Sodium/Dextrose (Heparin Infusion -) 25,000 units in 500 mls @ 20 mls/ hr IV TITR ALAN; Protocol Last Admin: 03/02/19 14:43 Dose: 1,050 units/hr, 21 mls/hr Methadone HCl 80 mg/ Methadone (HCl 10 mg) 90 mg PO 0600 [facility] Last Admin: 03/02/19 10:16 Dose: 90 mg Ondansetron HCl (Zofran Injection) 4 mg IVPUSH Q6H PRN PRN Reason: NAUSEA AND/OR VOMITING Polyethylene Glycol (Miralax (For Daily Use) -) 17 gm PO BID [facility] Last Admin: 03/02/19 21:21 Dose: 17 gm Quetiapine Fumarate (Seroquel -) 300 mg PO HS [facility] Last Admin: 03/02/19 21:21 Dose: 300 mg Ranitidine HCl (Zantac -) 150 mg PO BID PRN PRN Reason: PAIN Last Admin: 03/02/19 10:16 Dose: 150 mg Senna (Senna Oral Solution -) 8.8 mg PO HS [facility] Last Admin: 03/02/19 21:21 Dose: 8.8 mg Warfarin Sodium (Coumadin -) 10 mg PO DAILY@1800 [facility] Last Admin: 03/02/19 18:13 Dose: 10 mg - Objective Vital Signs: Vital Signs Temperature 98.1 F 03/02/19 18:27 Pulse Rate 82 03/02/19 18:27 Respiratory Rate 18 03/02/19 18:27 Blood Pressure 116/71 03/02/19 18:27 O2 Sat by Pulse Oximetry (%) 97 02/28/19 09:00 Labs: CBC, BMP 03/02/19 06:00 03/02/19 06:00 INR, PTT INR 1.40 (0.83-1.09) H 03/02/19 06:00 Problem List - Problems (1) Deep vein thrombosis (DVT) of right upper extremity Code(s): I82.621 - ACUTE EMBOLISM AND THROMBOSIS OF DEEP VEINS OF R UP EXTREM Qualifiers: Affected thrombotic vein of extremity: brachial (2) GERD (gastroesophageal reflux disease) Code(s): K21.9 - GASTRO-ESOPHAGEAL REFLUX DISEASE WITHOUT ESOPHAGITIS (3) HLD (hyperlipidemia) Code(s): E78.5 - HYPERLIPIDEMIA, UNSPECIFIED (4) HTN (hypertension) Code(s): I10 - ESSENTIAL (PRIMARY) HYPERTENSION (5) Constipation Code(s): K59.00 - CONSTIPATION, UNSPECIFIED (6) Opioid dependence Code(s): F11.20 - OPIOID DEPENDENCE, UNCOMPLICATED
[2019-03-03] MEDS ORDERED: METHADONE HCL 40 MG DISPERSABLE TABLET ONE ×2 (05:59→10:58)
[2019-03-03] MEDS ORDERED: METHADONE HCL 10 MG TABLET ONE ×2 (06:00→10:58)
[2019-03-03] MEDS: HEPARIN INFUSION - 25,000 UNITS/500 ML INFUS.BAG IV SCH (06:05)
[2019-03-03 09:45] LABS: HEMATOCRIT 32.6 % (32.4-45.2); HEMOGLOBIN 11.2 GM/dL (10.7-15.3); MCH 31.5 pg (25.7-33.7); MCHC 34.3 g/dl (32.0-36.0); MEAN CELL VOLUME 91.7 fl (80-96); MEAN PLT VOLUME 9.2 fl (7.5-11.1); PLATELET COUNT 260 K/MM3 (134-434); RBC 3.56 M/mm3 (3.60-5.2); RDW 16.5 % (11.6-15.6); WHITE BLOOD COUNT 6.5 K/mm3 (4.0-10.0)
[2019-03-03 10:24] LABS: INR 1.63 (0.83-1.09); PROTHROMBIN TIME (PATIENT) 19.3 SEC (9.7-13.0)
[2019-03-03] MEDS: METHADONE 80 MG, METHADONE 10 MG PO SCH (11:04)
[2019-03-03] MEDS: HYDROCHLOROTHIAZIDE 12.5 MG CAPSULE (FP) PO SCH (11:05)
[2019-03-03] MEDS: CITALOPRAM HYDROBROMIDE 20 MG TABLET (FP) PO SCH (11:05)
[2019-03-03] MEDS: POLYETHYLENE GLYCOL 3350 119 GM BTL PO SCH ×2 (11:05→21:28)
[2019-03-03] MEDS: WARFARIN NA 10 MG TABLET (FP) PO SCH (18:21)
[2019-03-03] MEDS ORDERED: PT OWN MED DRAWER 7, Y5N ONE (20:39)
--- NOTE | 2019-03-03 20:56 | PN ---
Progress Note, Physician History of Present Illness: No new complaints - Current Medication List Current Medications: Active Medications Acetaminophen (Tylenol -) 650 mg PO Q4H PRN PRN Reason: PAIN Last Admin: 02/25/19 09:10 Dose: 650 mg Atorvastatin Calcium (Lipitor -) 10 mg PO HS [facility] Last Admin: 03/02/19 21:20 Dose: 10 mg Citalopram Hydrobromide (Celexa -) 20 mg PO DAILY [facility] Last Admin: 03/03/19 11:05 Dose: 20 mg Heparin Sodium (Porcine) (Heparin -) 5,000 unit IVPUSH PRN PRN PRN Reason: Heparin Last Admin: 02/24/19 12:00 Dose: 5,000 unit Heparin Sodium (Porcine) (Heparin -) 1,000 unit IVPUSH PRN PRN PRN Reason: Heparin Last Admin: 02/25/19 10:26 Dose: 1,000 unit Hydrochlorothiazide (Hctz -) 12.5 mg PO DAILY [facility] Last Admin: 03/03/19 11:05 Dose: 12.5 mg Heparin Sodium/Dextrose (Heparin Infusion -) 25,000 units in 500 mls @ 20 mls/ hr IV TITR ALAN; Protocol Last Titration: 03/03/19 10:45 Dose: 900 units/hr, 18 mls/hr Methadone HCl 80 mg/ Methadone (HCl 10 mg) 90 mg PO 0600 [facility] Last Admin: 03/03/19 11:04 Dose: 90 mg Ondansetron HCl (Zofran Injection) 4 mg IVPUSH Q6H PRN PRN Reason: NAUSEA AND/OR VOMITING Polyethylene Glycol (Miralax (For Daily Use) -) 17 gm PO BID [facility] Last Admin: 03/03/19 11:05 Dose: 17 gm Quetiapine Fumarate (Seroquel -) 300 mg PO HS [facility] Last Admin: 03/02/19 21:21 Dose: 300 mg Ranitidine HCl (Zantac -) 150 mg PO BID PRN PRN Reason: PAIN Last Admin: 03/02/19 10:16 Dose: 150 mg Senna (Senna Oral Solution -) 8.8 mg PO HS [facility] Last Admin: 03/02/19 21:21 Dose: 8.8 mg Warfarin Sodium (Coumadin -) 10 mg PO DAILY@1800 [facility] Last Admin: 03/03/19 18:21 Dose: 10 mg - Objective Vital Signs: Vital Signs Temperature 98.4 F 03/03/19 18:30 Pulse Rate 92 H 03/03/19 18:30 Respiratory Rate 20 03/03/19 18:30 Blood Pressure 110/70 03/03/19 18:30 O2 Sat by Pulse Oximetry (%) 99 03/03/19 09:00 Cardiovascular: Yes: WNL, Regular Rate and Rhythm Respiratory: Yes: WNL, Regular, CTA Bilaterally Gastrointestinal: Yes: WNL, Normal Bowel Sounds, Soft Labs: CBC, BMP 03/03/19 07:15 03/02/19 06:00 INR, PTT INR 1.63 (0.83-1.09) H 03/03/19 09:15 Problem List - Problems (1) Deep vein thrombosis (DVT) of right upper extremity Assessment/Plan: Cont IV heparin wc is being bridged w/ coumadin Monitor PT/INR Code(s): I82.621 - ACUTE EMBOLISM AND THROMBOSIS OF DEEP VEINS OF R UP EXTREM Qualifiers: Affected thrombotic vein of extremity: brachial (2) GERD (gastroesophageal reflux disease) Code(s): K21.9 - GASTRO-ESOPHAGEAL REFLUX DISEASE WITHOUT ESOPHAGITIS (3) HLD (hyperlipidemia) Code(s): E78.5 - HYPERLIPIDEMIA, UNSPECIFIED (4) HTN (hypertension) Code(s): I10 - ESSENTIAL (PRIMARY) HYPERTENSION (5) Constipation Code(s): K59.00 - CONSTIPATION, UNSPECIFIED (6) Opioid dependence Assessment/Plan: Cont methadone Code(s): F11.20 - OPIOID DEPENDENCE, UNCOMPLICATED
[2019-03-03] MEDS: ATORVASTATIN CA 10 MG TABLET (FP) PO SCH (21:26)
[2019-03-03] MEDS: ACETAMINOPHEN 325 MG TABLET (FP) PO PRN (21:26)
[2019-03-03] MEDS: QUEtiapine FUMARATE 300 MG TABLET PO SCH (21:26)
[2019-03-03] MEDS: SENNOSIDES 8.8 MG/5 ML BULK BOTTLE PO SCH (21:28)
[2019-03-04 09:20] LABS: INR 1.88 (0.83-1.09); PROTHROMBIN TIME (PATIENT) 22.3 SEC (9.7-13.0)
[2019-03-04 09:23] LABS: ACTIVATED PTT 56.5 SECONDS (25.2-36.5)
[2019-03-04] MEDS ORDERED: METHADONE HCL 40 MG DISPERSABLE TABLET ONE (11:00)
[2019-03-04] MEDS ORDERED: METHADONE HCL 10 MG TABLET ONE (11:01)
[2019-03-04] MEDS: HEPARIN INFUSION - 25,000 UNITS/500 ML INFUS.BAG IV SCH ×2 (11:03→17:48)
[2019-03-04] MEDS: METHADONE 80 MG, METHADONE 10 MG PO SCH (11:54)
[2019-03-04] MEDS: POLYETHYLENE GLYCOL 3350 119 GM BTL PO SCH ×2 (11:55→21:47)
[2019-03-04] MEDS: RANITIDINE HCL 150 MG TABLET (FP) PO PRN (11:55)
[2019-03-04] MEDS: HYDROCHLOROTHIAZIDE 12.5 MG CAPSULE (FP) PO SCH (11:55)
[2019-03-04] MEDS: CITALOPRAM HYDROBROMIDE 20 MG TABLET (FP) PO SCH (11:55)
[2019-03-04] MEDS: WARFARIN NA 10 MG TABLET (FP) PO SCH (17:40)
[2019-03-04] MEDS ORDERED: PT OWN MED DRAWER 7, Y5N ONE ×2 (17:46→18:34)
[2019-03-04] MEDS: WARFARIN NA 2.5 MG TABLET (FP) PO SCH (20:34)
[2019-03-04] MEDS: ATORVASTATIN CA 10 MG TABLET (FP) PO SCH (21:46)
[2019-03-04] MEDS: SENNOSIDES 8.8 MG/5 ML BULK BOTTLE PO SCH (21:47)
[2019-03-04] MEDS: QUEtiapine FUMARATE 300 MG TABLET PO SCH (21:48)
--- NOTE | 2019-03-04 22:38 | PN ---
Progress Note, Physician - Current Medication List Current Medications: Active Medications Acetaminophen (Tylenol -) 650 mg PO Q4H PRN PRN Reason: PAIN Last Admin: 03/03/19 21:26 Dose: 650 mg Atorvastatin Calcium (Lipitor -) 10 mg PO HS [facility] Last Admin: 03/04/19 21:46 Dose: 10 mg Citalopram Hydrobromide (Celexa -) 20 mg PO DAILY [facility] Last Admin: 03/04/19 11:55 Dose: 20 mg Heparin Sodium (Porcine) (Heparin -) 5,000 unit IVPUSH PRN PRN PRN Reason: Heparin Last Admin: 02/24/19 12:00 Dose: 5,000 unit Heparin Sodium (Porcine) (Heparin -) 1,000 unit IVPUSH PRN PRN PRN Reason: Heparin Last Admin: 02/25/19 10:26 Dose: 1,000 unit Hydrochlorothiazide (Hctz -) 12.5 mg PO DAILY [facility] Last Admin: 03/04/19 11:55 Dose: 12.5 mg Heparin Sodium/Dextrose (Heparin Infusion -) 25,000 units in 500 mls @ 20 mls/ hr IV TITR ALAN; Protocol Last Admin: 03/04/19 17:48 Dose: 900 units/hr, 18 mls/hr Methadone HCl 80 mg/ Methadone (HCl 10 mg) 90 mg PO 0600 [facility] Last Admin: 03/04/19 11:54 Dose: 90 mg Ondansetron HCl (Zofran Injection) 4 mg IVPUSH Q6H PRN PRN Reason: NAUSEA AND/OR VOMITING Polyethylene Glycol (Miralax (For Daily Use) -) 17 gm PO BID [facility] Last Admin: 03/04/19 21:47 Dose: 17 gm Quetiapine Fumarate (Seroquel -) 300 mg PO [facility] Last Admin: 03/04/19 21:48 Dose: 300 mg Ranitidine HCl (Zantac -) 150 mg PO BID PRN PRN Reason: PAIN Last Admin: 03/04/19 11:55 Dose: 150 mg Senna (Senna Oral Solution -) 8.8 mg PO HS [facility] Last Admin: 03/04/19 21:47 Dose: 8.8 mg Warfarin Sodium (Coumadin -) 10 mg PO DAILY@1800 [facility] Last Admin: 03/04/19 17:40 Dose: 10 mg Warfarin Sodium (Coumadin -) 2.5 mg PO DAILY@1800 [facility] Last Admin: 03/04/19 20:34 Dose: 2.5 mg - Objective Vital Signs: Vital Signs Temperature 98.8 F 03/04/19 18:30 Pulse Rate 86 03/04/19 18:30 Respiratory Rate 18 03/04/19 18:30 Blood Pressure 147/82 03/04/19 18:30 O2 Sat by Pulse Oximetry (%) 99 03/04/19 09:30 Labs: CBC, BMP 03/03/19 07:15 03/02/19 06:00 INR, PTT INR 1.88 (0.83-1.09) H 03/04/19 08:00 Problem List - Problems (1) Deep vein thrombosis (DVT) of right upper extremity Code(s): I82.621 - ACUTE EMBOLISM AND THROMBOSIS OF DEEP VEINS OF R UP EXTREM Qualifiers: Affected thrombotic vein of extremity: brachial (2) GERD (gastroesophageal reflux disease) Code(s): K21.9 - GASTRO-ESOPHAGEAL REFLUX DISEASE WITHOUT ESOPHAGITIS (3) HLD (hyperlipidemia) Code(s): E78.5 - HYPERLIPIDEMIA, UNSPECIFIED (4) HTN (hypertension) Code(s): I10 - ESSENTIAL (PRIMARY) HYPERTENSION (5) Constipation Code(s): K59.00 - CONSTIPATION, UNSPECIFIED (6) Opioid dependence Code(s): F11.20 - OPIOID DEPENDENCE, UNCOMPLICATED
[2019-03-05] MEDS: HEPARIN INFUSION - 25,000 UNITS/500 ML INFUS.BAG IV SCH ×2 (06:48→20:00)
[2019-03-05 07:41] LABS: INR 1.92 (0.83-1.09); PROTHROMBIN TIME (PATIENT) 22.8 SEC (9.7-13.0)
[2019-03-05] MEDS ORDERED: METHADONE HCL 10 MG TABLET ONE (10:02)
[2019-03-05] MEDS ORDERED: METHADONE HCL 40 MG DISPERSABLE TABLET ONE (10:02)
[2019-03-05] MEDS: METHADONE 80 MG, METHADONE 10 MG PO SCH (10:11)
[2019-03-05] MEDS: CITALOPRAM HYDROBROMIDE 20 MG TABLET (FP) PO SCH (10:11)
[2019-03-05] MEDS: RANITIDINE HCL 150 MG TABLET (FP) PO PRN (10:11)
[2019-03-05] MEDS: HYDROCHLOROTHIAZIDE 12.5 MG CAPSULE (FP) PO SCH (10:12)
[2019-03-05] MEDS: POLYETHYLENE GLYCOL 3350 119 GM BTL PO SCH ×2 (10:13→21:55)
[2019-03-05 11:09] LABS: HEMATOCRIT 34.6 % (32.4-45.2); HEMOGLOBIN 11.9 GM/dL (10.7-15.3); MCH 31.4 pg (25.7-33.7); MCHC 34.4 g/dl (32.0-36.0); MEAN CELL VOLUME 91.3 fl (80-96); PLATELET COUNT 301 K/MM3 (134-434); RDW 16.7 % (11.6-15.6); WHITE BLOOD COUNT 8.2 K/mm3 (4.0-10.0)
[2019-03-05] MEDS ORDERED: PT OWN MED DRAWER 7, Y5N ONE (17:40)
[2019-03-05] MEDS: WARFARIN NA 2.5 MG TABLET (FP) PO SCH (18:00)
[2019-03-05] MEDS: WARFARIN NA 10 MG TABLET (FP) PO SCH (18:00)
[2019-03-05] MEDS: SENNOSIDES 8.8 MG/5 ML BULK BOTTLE PO SCH (21:55)
[2019-03-05] MEDS: QUEtiapine FUMARATE 300 MG TABLET PO SCH (21:55)
[2019-03-05] MEDS: ATORVASTATIN CA 10 MG TABLET (FP) PO SCH (21:55)
--- NOTE | 2019-03-05 23:24 | PN ---
Progress Note, Physician - Current Medication List Current Medications: Active Medications Acetaminophen (Tylenol -) 650 mg PO Q4H PRN PRN Reason: PAIN Last Admin: 03/03/19 21:26 Dose: 650 mg Atorvastatin Calcium (Lipitor -) 10 mg PO HS [facility] Last Admin: 03/05/19 21:55 Dose: 10 mg Citalopram Hydrobromide (Celexa -) 20 mg PO DAILY [facility] Last Admin: 03/05/19 10:11 Dose: 20 mg Heparin Sodium (Porcine) (Heparin -) 5,000 unit IVPUSH PRN PRN PRN Reason: Heparin Last Admin: 02/24/19 12:00 Dose: 5,000 unit Heparin Sodium (Porcine) (Heparin -) 1,000 unit IVPUSH PRN PRN PRN Reason: Heparin Last Admin: 02/25/19 10:26 Dose: 1,000 unit Hydrochlorothiazide (Hctz -) 12.5 mg PO DAILY [facility] Last Admin: 03/05/19 10:12 Dose: 12.5 mg Heparin Sodium/Dextrose (Heparin Infusion -) 25,000 units in 500 mls @ 20 mls/ hr IV TITR ALAN; Protocol Last Admin: 03/05/19 20:00 Dose: 900 units/hr, 18 mls/hr Methadone HCl 80 mg/ Methadone (HCl 10 mg) 90 mg PO 0600 [facility] Last Admin: 03/05/19 10:11 Dose: 90 mg Ondansetron HCl (Zofran Injection) 4 mg IVPUSH Q6H PRN PRN Reason: NAUSEA AND/OR VOMITING Polyethylene Glycol (Miralax (For Daily Use) -) 17 gm PO BID [facility] Last Admin: 03/05/19 21:55 Dose: 17 gm Quetiapine Fumarate (Seroquel -) 300 mg PO [facility] Last Admin: 03/05/19 21:55 Dose: 300 mg Ranitidine HCl (Zantac -) 150 mg PO BID PRN PRN Reason: PAIN Last Admin: 03/05/19 10:11 Dose: 150 mg Senna (Senna Oral Solution -) 8.8 mg PO HS [facility] Last Admin: 03/05/19 21:55 Dose: 8.8 mg Warfarin Sodium (Coumadin -) 10 mg PO DAILY@1800 [facility] Last Admin: 03/05/19 18:00 Dose: 10 mg Warfarin Sodium (Coumadin -) 2.5 mg PO DAILY@1800 [facility] Last Admin: 03/05/19 18:00 Dose: 2.5 mg - Objective Vital Signs: Vital Signs Temperature 98.0 F 03/05/19 18:30 Pulse Rate 91 H 03/05/19 18:30 Respiratory Rate 18 03/05/19 18:30 Blood Pressure 138/69 03/05/19 18:30 O2 Sat by Pulse Oximetry (%) 97 03/05/19 09:00 Labs: CBC, BMP 03/05/19 10:45 03/02/19 06:00 INR, PTT INR 1.92 (0.83-1.09) H 03/05/19 07:00 Problem List - Problems (1) Deep vein thrombosis (DVT) of right upper extremity Code(s): I82.621 - ACUTE EMBOLISM AND THROMBOSIS OF DEEP VEINS OF R UP EXTREM Qualifiers: Affected thrombotic vein of extremity: brachial (2) GERD (gastroesophageal reflux disease) Code(s): K21.9 - GASTRO-ESOPHAGEAL REFLUX DISEASE WITHOUT ESOPHAGITIS (3) HLD (hyperlipidemia) Code(s): E78.5 - HYPERLIPIDEMIA, UNSPECIFIED (4) HTN (hypertension) Code(s): I10 - ESSENTIAL (PRIMARY) HYPERTENSION (5) Constipation Code(s): K59.00 - CONSTIPATION, UNSPECIFIED (6) Opioid dependence Code(s): F11.20 - OPIOID DEPENDENCE, UNCOMPLICATED
[2019-03-06] MEDS: HEPARIN INFUSION - 25,000 UNITS/500 ML INFUS.BAG IV SCH (07:01)
[2019-03-06 08:12] LABS: INR 2.39 (0.83-1.09); PROTHROMBIN TIME (PATIENT) 28.5 SEC (9.7-13.0)
[2019-03-06] MEDS: HYDROCHLOROTHIAZIDE 12.5 MG CAPSULE (FP) PO SCH ×2 (10:28→12:33)
[2019-03-06] MEDS: POLYETHYLENE GLYCOL 3350 119 GM BTL PO SCH ×3 (10:28→22:00)
[2019-03-06] MEDS: METHADONE 80 MG, METHADONE 10 MG PO SCH ×2 (10:28→12:34)
[2019-03-06] MEDS: CITALOPRAM HYDROBROMIDE 20 MG TABLET (FP) PO SCH ×2 (10:28→12:33)
[2019-03-06] MEDS ORDERED: METHADONE HCL 40 MG DISPERSABLE TABLET ONE (12:29)
[2019-03-06] MEDS ORDERED: METHADONE HCL 10 MG TABLET ONE (12:30)
[2019-03-06] MEDS ORDERED: PT OWN MED DRAWER 7, Y5N ONE (17:33)
[2019-03-06] MEDS: WARFARIN NA 2.5 MG TABLET (FP) PO SCH (17:46)
[2019-03-06] MEDS: WARFARIN NA 10 MG TABLET (FP) PO SCH (17:49)
[2019-03-06] MEDS: SODIUM PHOSPHATE/NA BIPHOS 133 ML ENEMA RC ONE ×2 (17:54→18:30)
--- NOTE | 2019-03-06 21:45 | PN ---
Progress Note, Physician - Current Medication List Current Medications: Active Medications Acetaminophen (Tylenol -) 650 mg PO Q4H PRN PRN Reason: PAIN Last Admin: 03/03/19 21:26 Dose: 650 mg Atorvastatin Calcium (Lipitor -) 10 mg PO [facility] Last Admin: 03/05/19 21:55 Dose: 10 mg Citalopram Hydrobromide (Celexa -) 20 mg PO DAILY [facility] Last Admin: 03/06/19 12:33 Dose: 20 mg Hydrochlorothiazide (Hctz -) 12.5 mg PO DAILY [facility] Last Admin: 03/06/19 12:33 Dose: 12.5 mg Methadone HCl 80 mg/ Methadone (HCl 10 mg) 90 mg PO 0600 [facility] Last Admin: 03/06/19 12:34 Dose: 90 mg Ondansetron HCl (Zofran Injection) 4 mg IVPUSH Q6H PRN PRN Reason: NAUSEA AND/OR VOMITING Polyethylene Glycol (Miralax (For Daily Use) -) 17 gm PO BID [facility] Last Admin: 03/06/19 14:36 Dose: 17 gm Quetiapine Fumarate (Seroquel -) 300 mg PO [facility] Last Admin: 03/05/19 21:55 Dose: 300 mg Ranitidine HCl (Zantac -) 150 mg PO BID PRN PRN Reason: PAIN Last Admin: 03/05/19 10:11 Dose: 150 mg Senna (Senna Oral Solution -) 8.8 mg PO [facility] Last Admin: 03/05/19 21:55 Dose: 8.8 mg Warfarin Sodium (Coumadin -) 10 mg PO DAILY@1800 [facility] Last Admin: 03/06/19 17:49 Dose: 10 mg Warfarin Sodium (Coumadin -) 2.5 mg PO DAILY@1800 [facility] Last Admin: 03/06/19 17:46 Dose: 2.5 mg - Objective Vital Signs: Vital Signs Temperature 98.3 F 03/06/19 18:00 Pulse Rate 88 03/06/19 18:00 Respiratory Rate 18 03/06/19 18:00 Blood Pressure 129/66 03/06/19 18:00 O2 Sat by Pulse Oximetry (%) 97 03/06/19 09:00 Labs: CBC, BMP 03/05/19 10:45 03/02/19 06:00 INR, PTT INR 2.39 (0.83-1.09) H 03/06/19 06:35 Problem List - Problems (1) Deep vein thrombosis (DVT) of right upper extremity Code(s): I82.621 - ACUTE EMBOLISM AND THROMBOSIS OF DEEP VEINS OF R UP EXTREM Qualifiers: Affected thrombotic vein of extremity: brachial (2) GERD (gastroesophageal reflux disease) Code(s): K21.9 - GASTRO-ESOPHAGEAL REFLUX DISEASE WITHOUT ESOPHAGITIS (3) HLD (hyperlipidemia) Code(s): E78.5 - HYPERLIPIDEMIA, UNSPECIFIED (4) HTN (hypertension) Code(s): I10 - ESSENTIAL (PRIMARY) HYPERTENSION (5) Constipation Code(s): K59.00 - CONSTIPATION, UNSPECIFIED (6) Opioid dependence Code(s): F11.20 - OPIOID DEPENDENCE, UNCOMPLICATED
[2019-03-06] MEDS: QUEtiapine FUMARATE 300 MG TABLET PO SCH (21:59)
[2019-03-06] MEDS: SENNOSIDES 8.8 MG/5 ML BULK BOTTLE PO SCH (21:59)
[2019-03-06] MEDS: ATORVASTATIN CA 10 MG TABLET (FP) PO SCH (21:59)
[2019-03-07] MEDS: METHADONE 80 MG, METHADONE 10 MG PO SCH ×2 (06:38→11:49)
[2019-03-07 07:48] LABS: INR 2.34 (0.83-1.09); PROTHROMBIN TIME (PATIENT) 27.9 SEC (9.7-13.0)
[2019-03-07 09:27] LABS: HEMATOCRIT 32.3 % (32.4-45.2); HEMOGLOBIN 11.2 GM/dL (10.7-15.3); MCH 31.3 pg (25.7-33.7); MCHC 34.6 g/dl (32.0-36.0); MEAN CELL VOLUME 90.5 fl (80-96); PLATELET COUNT 298 K/MM3 (134-434); RBC 3.56 M/mm3 (3.60-5.2); RDW 16.2 % (11.6-15.6)
[2019-03-07] MEDS ORDERED: METHADONE HCL 40 MG DISPERSABLE TABLET ONE (11:44)
[2019-03-07] MEDS ORDERED: METHADONE HCL 10 MG TABLET ONE (11:44)
[2019-03-07] MEDS: CITALOPRAM HYDROBROMIDE 20 MG TABLET (FP) PO SCH (11:48)
[2019-03-07] MEDS: HYDROCHLOROTHIAZIDE 12.5 MG CAPSULE (FP) PO SCH (11:50)
[2019-03-07] MEDS: POLYETHYLENE GLYCOL 3350 119 GM BTL PO SCH ×2 (11:51→22:11)
[2019-03-07] MEDS ORDERED: SODIUM PHOSPHATE/NA BIPHOS 133 ML ENEMA RC ONE (17:30)
[2019-03-07] MEDS: WARFARIN NA 10 MG TABLET (FP) PO SCH (17:59)
[2019-03-07] MEDS ORDERED: WARFARIN NA 2.5 MG TABLET (FP) PO SCH (18:00)
--- NOTE | 2019-03-07 20:14 | PN ---
Progress Note, Physician History of Present Illness: Pt w/ constipation - Current Medication List Current Medications: Active Medications Acetaminophen (Tylenol -) 650 mg PO Q4H PRN PRN Reason: PAIN Last Admin: 03/03/19 21:26 Dose: 650 mg Atorvastatin Calcium (Lipitor -) 10 mg PO [facility] Last Admin: 03/06/19 21:59 Dose: 10 mg Citalopram Hydrobromide (Celexa -) 20 mg PO DAILY [facility] Last Admin: 03/07/19 11:48 Dose: 20 mg Hydrochlorothiazide (Hctz -) 12.5 mg PO DAILY [facility] Last Admin: 03/07/19 11:50 Dose: 12.5 mg Methadone HCl 80 mg/ Methadone (HCl 10 mg) 90 mg PO 0600 [facility] Last Admin: 03/07/19 11:49 Dose: 90 mg Ondansetron HCl (Zofran Injection) 4 mg IVPUSH Q6H PRN PRN Reason: NAUSEA AND/OR VOMITING Polyethylene Glycol (Miralax (For Daily Use) -) 17 gm PO BID [facility] Last Admin: 03/07/19 11:51 Dose: 17 gm Quetiapine Fumarate (Seroquel -) 300 mg PO [facility] Last Admin: 03/06/19 21:59 Dose: 300 mg Ranitidine HCl (Zantac -) 150 mg PO BID PRN PRN Reason: PAIN Last Admin: 03/05/19 10:11 Dose: 150 mg Senna (Senna Oral Solution -) 8.8 mg PO [facility] Last Admin: 03/06/19 21:59 Dose: 8.8 mg Warfarin Sodium (Coumadin -) 10 mg PO DAILY@1800 [facility] Last Admin: 03/07/19 17:59 Dose: 10 mg Warfarin Sodium (Coumadin -) 2.5 mg PO DAILY@1800 [facility] Last Admin: 03/07/19 18:55 Dose: 2.5 mg - Objective Vital Signs: Vital Signs Temperature 99.1 F 03/07/19 18:00 Pulse Rate 97 H 03/07/19 18:00 Respiratory Rate 18 03/07/19 18:00 Blood Pressure 115/68 03/07/19 18:00 O2 Sat by Pulse Oximetry (%) 98 03/07/19 09:00 Cardiovascular: Yes: WNL, Regular Rate and Rhythm Respiratory: Yes: WNL, Regular, CTA Bilaterally Gastrointestinal: Yes: WNL, Normal Bowel Sounds, Soft, Abdomen, Obese Labs: CBC, BMP 03/07/19 06:30 03/02/19 06:00 INR, PTT INR 2.34 (0.83-1.09) H 03/07/19 06:30 Problem List - Problems (1) Constipation Assessment/Plan: Pt unable to go homr Fleets enema given Pt encouraged to ambulate and increase fluids Code(s): K59.00 - CONSTIPATION, UNSPECIFIED (2) Deep vein thrombosis (DVT) of right upper extremity Assessment/Plan: Cont coumadin Follow PT/INR DC for am Code(s): I82.621 - ACUTE EMBOLISM AND THROMBOSIS OF DEEP VEINS OF R UP EXTREM Qualifiers: Affected thrombotic vein of extremity: brachial (3) GERD (gastroesophageal reflux disease) Code(s): K21.9 - GASTRO-ESOPHAGEAL REFLUX DISEASE WITHOUT ESOPHAGITIS (4) HLD (hyperlipidemia) Code(s): E78.5 - HYPERLIPIDEMIA, UNSPECIFIED (5) HTN (hypertension) Code(s): I10 - ESSENTIAL (PRIMARY) HYPERTENSION (6) Opioid dependence Assessment/Plan: Cont methadone Code(s): F11.20 - OPIOID DEPENDENCE, UNCOMPLICATED
[2019-03-07] MEDS: QUEtiapine FUMARATE 300 MG TABLET PO SCH (22:10)
[2019-03-07] MEDS: ATORVASTATIN CA 10 MG TABLET (FP) PO SCH (22:10)
[2019-03-07] MEDS: SENNOSIDES 8.8 MG/5 ML BULK BOTTLE PO SCH (22:11)
[2019-03-08 07:58] LABS: INR 2.52 (0.83-1.09)
[2019-03-08] MEDS: CITALOPRAM HYDROBROMIDE 20 MG TABLET (FP) PO SCH (10:25)
[2019-03-08] MEDS: HYDROCHLOROTHIAZIDE 12.5 MG CAPSULE (FP) PO SCH (10:25)
[2019-03-08] MEDS: POLYETHYLENE GLYCOL 3350 119 GM BTL PO SCH (10:25)
[2019-03-08] MEDS ORDERED: METHADONE HCL 40 MG DISPERSABLE TABLET ONE (10:29)
[2019-03-08] MEDS: METHADONE 80 MG, METHADONE 10 MG PO SCH (10:29)
[2019-03-08] MEDS ORDERED: METHADONE HCL 10 MG TABLET ONE (10:29)
[2019-03-08 11:51] VITALS: BP 100/58; PULSE 76; TEMP 98.3
== END 2019-03-08 15:36 | disposition home or self-care (01) | DRG 197 ==
LOC: JER 14:42 → JERBED 02-23 01:36 → J5S 02-23 02:36
PROVIDERS: ADMIT Internal Medicine; ATTEND Internal Medicine
DX: I82.621 Acute embolism and thrombosis of deep veins of right upper extremity (principal); F11.20 Opioid dependence, uncomplicated; K59.03 Drug induced constipation; I10 Essential (primary) hypertension; F31.9 Bipolar disorder, unspecified; F17.210 Nicotine dependence, cigarettes, uncomplicated; E78.5 Hyperlipidemia, unspecified; Z86.718 Personal history of other venous thrombosis and embolism; K21.9 Gastro-esophageal reflux disease without esophagitis; T40.2X5A Adverse effect of other opioids, initial encounter
CPT/HCPCS: 36415; 71046-TC-FY; 71275-TC; 74177-TC; 80048; 80053; 81240; 81241; 81291; 82272; 83090; 83880; 84484; 85025; 85027; 85032; 85379; 85610; 85613; 85730; 85732; 86038; 93005; 93010; 93971; 99284-25; J1644

== ENCOUNTER 2019-03-22 16:40 | Inpatient (IN) | payer OTHER ==
[2019-03-22 17:19] VITALS: BMI 40.3
--- NOTE | 2019-03-22 19:16 | PDOC ---
History of Present Illness - General Chief Complaint: Head/Neck problem Stated Complaint: NUMBNESS/PCP REFERRED Time Seen by Provider: 03/22/19 19:13 History Source: Patient - History of Present Illness Initial Comments: 03/22/19 19:27 48 year old female c/o left sided numbness x 1.5 weeks to left side of face and left arm. . patient was d/danyelle on 03/08 for right arm DVT. patient is complaining left sided chest pain x 1 week. Lalo Nausea, vomiting, PMHX: HTN, anemia, hypercholesterolemia. HTN, HLD, bioplar d/o, currently on methadone, opiod abuse, previous DVTs, and previous pericardial effusion 03/22/19 19:30 NIH Stroke Scale - Last Known Well Date/Time & Onset Date Last Known Well: 03/10/19 - Initial Evaluation Level of consciousness: Alert Ask patient the month and their age: Answers both correctly Ask patient to open & close eyes; make fist and let go: Obeys both correctly Best gaze (horizontal eye movement): Normal Visual field testing: No visual field loss Facial paresis (Show teeth/raise eyebrows/close eyes tight): Normal symmetrical movement Motor Function: Left Arm: Normal Motor Function: Right Arm: Normal (extends arm 90 (or 45) degrees for 10 seconds without drift Motor Function: Left Leg: Drift Motor Function: Right Leg: Normal (extends leg 30 degrees for 5 seconds without drift) Limb Ataxia: No ataxia Sensory(Use pinprick test arms,legs,trunk,face/side to side): Mild to moderate decrease in sensation Best language (Describe picture, name items, read sentences): No Aphasia Dysarthria (read several words): Normal articulation Extinction and Inattention: No abnormality - Total Score NIH Stroke Scale Score: 2 Past History - Past Medical History Allergies/Adverse Reactions: Allergies Allergy/AdvReac Type Severity Reaction Status Date / Time No Known Allergies Allergy Verified 03/22/19 17:19 Home Medications: Ambulatory Orders Omeprazole [Prilosec (RX)] 40 mg PO DAILY #0 capsule. 05/20/13 Ranitidine HCl [Zantac] 150 mg PO BID PRN #10 tablet 05/20/13 Simvastatin [Zocor -] 10 mg PO HS #0 tablet 05/20/13 Methadone [Dolophine -] 90 mg PO DAILY@0900 #30 tablet MDD 1 08/30/18 Methylnaltrexone [place] [Relistor -] 12 mg SQ DAILY #30 kit 08/30/18 Quetiapine Fumarate [Seroquel] 300 mg PO HS #30 tablet 09/16/18 Quetiapine Fumarate [Seroquel -] 50 mg PO HS #14 tablet 10/14/18 Citalopram Hydrobromide [Celexa -] 20 mg PO DAILY #14 tablet 02/26/19 Docusate Sodium [Colace -] 100 mg PO TID #90 capsule 02/26/19 Hydrochlorothiazide [Hctz -] 12.5 mg PO DAILY 30 Days #30 cap 02/26/19 Warfarin Na [Coumadin -] 10 mg PO DAILY@1800 #30 tablet 03/06/19 Polyethylene Glycol 3350 [Miralax (For Daily Use) -] 17 gm PO DAILY #1 bottle Warfarin Sodium [Coumadin] 2.5 mg PO DAILY #30 tablet 03/07/19 Anemia: Yes Asthma: No Cancer: No Cardiac Disorders: Yes (PERICARDIAL EFFUSION, PNEUMOTHORAX) CVA: No COPD: No CHF: No Dementia: No Diabetes: No GI Disorders: Yes (gerd) Disorders: No HTN: Yes Hypercholesterolemia: Yes Liver Disease: Yes (liver enzymes elevated) Seizures: No Thyroid Disease: No Other medical history: right arm DVT - Surgical History Abdominal Surgery: No Appendectomy: No Cardiac Surgery: No Cholecystectomy: No Lung Surgery: No Neurologic Surgery: Yes (R ganglion cyst removed) Orthopedic Surgery: No - Immunization History Immunization Up to Date: Yes - Psycho Social/Smoking Cessation Hx Smoking History: Current every day smoker Have you smoked in the past 12 months: Yes Number of Cigarettes Smoked Daily: 3 Information on smoking cessation initiated: Yes Hx Alcohol Use: Yes Drug/Substance Use Hx: No Substance Use Type: Alcohol, Cocaine, Heroin Hx Substance Use Treatment: Yes ([facility], [facility]) Review of Systems - Review of Systems Able to Perform ROS?: Yes Is the patient limited Greek proficient: No Constitutional: No: Symptoms Reported, See HPI, Chills, Diaphoresis, Fever, Loss of Appetite, Malaise, Night Sweats, Weakness, Weight Stable, Unintentional Wgt. Loss, Unexplained wgt Loss, Other Cardiac (ROS): Yes: Chest Pain Neurological: Yes: Headache, Numbness, Paresthesia *Physical Exam - Vital Signs Last Vital Signs Temp Pulse Resp BP Pulse Ox 98.6 F 94 H 19 100/54 L 97 03/22/19 17:16 03/22/19 17:16 03/22/19 17:16 03/22/19 17:16 03/22/19 17:16 - Physical Exam General Appearance: Yes: Appropriately Dressed Respiratory/Chest: positive: Lungs Clear, Normal Breath Sounds Cardiovascular: positive: Regular Rhythm, Regular Rate Gastrointestinal/Abdominal: positive: Normal Bowel Sounds, Soft. negative: Tender Extremity: positive: Normal Capillary Refill, Normal Inspection, Normal Range of Motion Integumentary: positive: Normal Color, Dry, Warm Neurologic: positive: staging technician II-XII NML intact, Fully Oriented, Alert, Normal Mood/ Affect, Normal Response, Motor Strength 10/18 ED Treatment Course - LABORATORY CBC & Chemistry Diagram: 03/22/19 20:47 03/22/19 20:47 Medical Decision Making - Medical Decision Making 03/22/19 21:10 : 03/22/19 23:02 PATIENT inr ELEVATED. PATIENT IS to be admitted under Dr. miramontes. for grossly elevated INR, numbness and tingling 03/23/19 01:40 A: elevated INR, left sided facial numbness P: labs Ct head Discharge - Discharge Information Problems reviewed: Yes Clinical Impression/Diagnosis: Numbness and tingling, Elevated INR Headache Qualifiers: Headache type: unspecified Headache chronicity pattern: acute headache Intractability: not intractable Qualified Code(s): R51 - Headache - Admission Yes - Follow up/Referral - Patient Discharge Instructions - Post Discharge Activity
[2019-03-22 21:08] LABS: BASO % 1.2 % (0-2.0); EOS % 2.1 % (0-4.5); HEMATOCRIT 31.8 % (32.4-45.2); HEMOGLOBIN 11.3 GM/dL (10.7-15.3); LYMPH % 35.8 % (8-40); MCH 31.6 pg (25.7-33.7); MCHC 35.7 g/dl (32.0-36.0); MEAN CELL VOLUME 88.6 fl (80-96); MEAN PLT VOLUME 8.7 fl (7.5-11.1); MONO % 6.5 % (3.8-10.2); NEUT % 54.4 % (42.8-82.8); PLATELET COUNT 287 K/MM3 (134-434); RBC 3.59 M/mm3 (3.60-5.2); RDW 15.7 % (11.6-15.6)
[2019-03-22 21:26] LABS: PROTHROMBIN TIME (PATIENT) 80.9 SEC (9.7-13.0)
[2019-03-22 21:29] LABS: ACTIVATED PTT 68.4 SECONDS (25.2-36.5)
[2019-03-22 21:34] LABS: ALBUMIN 3.4 g/dl (3.4-5.0); BILIRUBIN,TOTAL 0.2 mg/dL (0.2-1); BLOOD UREA NITROGEN 11.6 mg/dL (7-18); CALCIUM 8.3 mg/dL (8.5-10.1); CREATININE 1.1 mg/dL (0.55-1.3); POTASSIUM 3.4 mmol/L (3.5-5.1); TOT PROT 7.1 g/dl (6.4-8.2)
[2019-03-22 21:39] LABS: PH,URINE 5.5 (5.0-8.0); URINE APPEARANCE CLOUDY; URINE BILIRUBIN NEGATIVE (NEGATIVE); URINE COLOR YELLOW; URINE GLUCOSE (UA) NEGATIVE (NEGATIVE); URINE KETONE TRACE (NEGATIVE); URINE LEUK ESTERASE NEGATIVE (NEGATIVE); URINE NITRITE NEGATIVE (NEGATIVE); URINE PROTEIN NEGATIVE (NEGATIVE)
[2019-03-22 21:43] LABS: INR 6.73 (0.83-1.09)
[2019-03-23] MEDS: DOCUSATE SODIUM 100 MG CAPSULE (FP) PO SCH ×3 (05:47→22:19)
[2019-03-23 07:47] LABS: PROTHROMBIN TIME (PATIENT) 75.9 SEC (9.7-13.0)
[2019-03-23 08:00] LABS: BASO % 0.6 % (0-2.0); EOS % 2.1 % (0-4.5); HEMATOCRIT 31.1 % (32.4-45.2); HEMOGLOBIN 10.9 GM/dL (10.7-15.3); LYMPH % 35.7 % (8-40); MCH 30.8 pg (25.7-33.7); MONO % 4.4 % (3.8-10.2); NEUT % 57.2 % (42.8-82.8); PLATELET COUNT 273 K/MM3 (134-434); RBC 3.54 M/mm3 (3.60-5.2); RDW 15.8 % (11.6-15.6); WHITE BLOOD COUNT 6.2 K/mm3 (4.0-10.0)
[2019-03-23 08:02] LABS: ALBUMIN 3.1 g/dl (3.4-5.0); BILIRUBIN,TOTAL 0.1 mg/dL (0.2-1); BLOOD UREA NITROGEN 10.7 mg/dL (7-18); CALCIUM 8.4 mg/dL (8.5-10.1); CREATININE 0.9 mg/dL (0.55-1.3); POTASSIUM 3.5 mmol/L (3.5-5.1); TOT PROT 6.7 g/dl (6.4-8.2)
[2019-03-23 08:58] LABS: INR 6.31 (0.83-1.09)
[2019-03-23] MEDS ORDERED: METHADONE HCL 10 MG TABLET PO SCH (09:00)
[2019-03-23] MEDS ORDERED: PT OWN MED DRAWER 7, Y5N ONE ×2 (10:37→21:33)
[2019-03-23] MEDS ORDERED: METHADONE HCL 40 MG DISPERSABLE TABLET ONE (10:37)
[2019-03-23] MEDS ORDERED: METHADONE HCL 10 MG TABLET ONE (10:37)
[2019-03-23] MEDS: METHADONE 80 MG, METHADONE 10 MG PO SCH (10:47)
[2019-03-23] MEDS: POLYETHYLENE GLYCOL 3350 119 GM BTL PO SCH (10:49)
[2019-03-23] MEDS: HYDROCHLOROTHIAZIDE 12.5 MG CAPSULE (FP) PO SCH (10:49)
[2019-03-23] MEDS: CITALOPRAM HYDROBROMIDE 20 MG TABLET (FP) PO SCH (10:49)
[2019-03-23] MEDS ORDERED: PNEUMOC 13-VAL CONJ-DIP CRM/PF 0.5 ML DISP.SYRIN IM ONE (11:05)
[2019-03-23] MEDS: Methylnaltrexone Bromide 12 MG/0.6 ML KIT SQ SCH ×2 (11:49→13:29)
[2019-03-23] MEDS ORDERED: PNEUMOCOCCAL 23 VACCINE 0.5 ML VIAL IM ONE (12:00)
--- NOTE | 2019-03-23 12:06 | EKG ---
Test Reason : Blood Pressure : / mmHG Vent. Rate : 082 BPM Atrial Rate : 082 BPM P-R Int : 152 ms QRS Dur : 084 ms QT Int : 402 ms P-R-T Axes : 055 -07 040 degrees QTc Int : 469 ms POOR DATA QUALITY, INTERPRETATION MAY BE ADVERSELY AFFECTED NORMAL SINUS RHYTHM POSSIBLE LEFT ATRIAL ENLARGEMENT BORDERLINE ECG WHEN COMPARED WITH ECG OF 22-FEB-2019 14:57, NO SIGNIFICANT CHANGE WAS FOUND Confirmed by Terrell Allan ([id number]) on 03/23/2019 12:06:10 PM Referred By: Confirmed By:Terrell Allan
--- NOTE | 2019-03-23 14:04 | ECHO ---
Version: 1 Name: PATRICK FLOWERS Exam: Adult Echocardiogram Study Date: 03/23/2019, 12:20 PM Age: 48 Years MMode/2D Measurements & Calculations IVSd: 0.75 cm LVIDs: 3.6 cm LVIDd: 5.0 cm LVPWd: 0.79 cm LVOT diam: 2.24 cm Ao root diam: 2.6 cm LA dimension: 3.5 cm Doppler Measurements & Calculations MV E max curtis: 53.8 cm/sec Med E/e': 7.5 MV A max curtis: 73.5 cm/sec Med Peak E' Curtis: 7.1 cm/sec MV E/A: 0.73 Lat E/e': 8.0 Lat Peak E' Curtis: 6.7 cm/sec MR max P.9 mmHg Ao max P.7 mmHg Ao V2 max: 108.6 cm/sec Procedure The study was technically adequate with some images being suboptimal in quality. Left Ventricle The left ventricle is normal in size. Left ventricular systolic function is normal. Ejection Fractio n = 55%. Grade I diastolic dysfunction, (abnormal relaxation pattern). Right Ventricle The right ventricle is normal in size and function. Atria Normal left and right atrial size and function. Mitral Valve The mitral valve is normal in structure and function. There is no mitral regurgitation noted. Tricuspid Valve The tricuspid valve is normal in structure and function. Aortic Valve The aortic valve is not well visualized. No hemodynamically significant valvular aortic stenosis. No aortic regurgitation is present. Pulmonic Valve The pulmonic valve is not well visualized. Great Vessels The aortic root is normal size. Pericardium/Pleura There is no pericardial effusion. Summary Statements Left ventricular systolic function is normal. The right ventricle is normal in size and function. No significant valvular pathology. Terrell Allan 03/23/2019, 1:03 PM Ordering Physician: Nereyda Pedro Referring Physician: NEREYDA PEDRO Performed By: Rosanna Hammonds
--- NOTE | 2019-03-23 15:41 | CONSULT ---
Consult - text type - Consultation Consultation Note: NEUROLOGY CONSULT GREATLY APPRECIATED: This 48 yo LH single woman lives with her boyfriend, not currently working. PMHX:Mixed Bipolar disorder with Depression, Opioid dependence followed at clinic, HLD, HTN, GERD, R arm DVT, recreational smoker. On: omeprazole, ranitidine, simvastatin, methadone, methylnatrexone, quetiapine 350 mg HS, citalopram, HCTZ, warfarin. Admitted after 1 1/2 weeks of L sided facial numbness and "pressure" under left eye with photophobia, phonophobia, N/V, kinesiophobia. This was associated with increasing mostly nocturnal left sided "tingling" and especially left leg "going asleep," preventing her from sleep. She denies trying interventions such as tylenol or advil to alleviate pain. Today, denies H/A however reporting abdominal discomfort and no recent BM. Review of systems sig for still intermittent depression and she does not currently have a psychiatrist. She denies history of hallucinations. Head CT (reviewed): Normal study. Carotid duplex: Mod plaques at bifurcations of common carotids, but no heme sig stenosis. EKG NSR Echo normal LV function INR found to be elevated at 6.31. WBC 6.2; MCV = 88; UA neg ASPEN: Obese. Neck supple. NEURO: Awake, alert, somewhat irritable and resistive to exam. OX x 3. CNII-CNXII: EOM's full without nystagmus. Full frey. No facial. Motor: No drift or tremor. Strength normal. Reflexes normal. Plantars silent. Coordination: No FTN dystaxia. Sensation: Feels vibration. Gait: Pt declines. Impression: 1. Essentially normal neurological exam. 2. Migraine Headaches 3. L hemisyndrome and nocturnal parasthesia suggestive of Restless Limbs Syndrome (RLS) 4. Possible trigeminal neuralgia Suggest: Provide Zofran IVPB 4 mg prn for nausea, O2 therapy and sumatriptan 50- 100 mg prn for migraine Check B12, TSH, Lyme, Fe++, TIBC, Ferritin, Urine tox Psychiatry consult for possible antidepressant Rx and evaluation of current Psyche regimen. Try gabapentin 300 mg HS and gradually increase to 300 mg q 8 hrs ( or higher for facial pains and RLS (would avoid DA agonists). MRI of brain (C-) to r/o demyelinating disease. Thank you very much, Oliver Morales MD
--- NOTE | 2019-03-23 19:54 | HP ---
Admitting History and Physical - Past Medical History [employer]ICE WORK[employer]: Yes: CVA, Dementia, Migraine, Multiple Sclerosis, Parkinson's, Seizure, Syncope, TIA, Vertigo, Other Cardiovascular: Yes: HTN Gastrointestinal: Yes: GERD Hepatobiliary: Yes: Other (fatty liver) ...LMP: 03/30/18 Heme/Onc: Yes: Anemia Psych: Yes: Anxiety Musculoskeletal: Yes: Chronic low back pain - Past Surgical History Past Surgical History: Yes: Colonoscopy (2-3 yrs ago as per pt) - Smoking History Smoking history: Current every day smoker Have you smoked in the past 12 months: Yes Aproximately how many cigarettes per day: 3 - Alcohol/Substance Use Hx Alcohol Use: Yes Number of Drinks Daily: 3 History of Substance Use: reports: Cocaine, Heroin - Social History Occupation: not working History of Recent Travel: No Home Medications - Allergies Allergies/Adverse Reactions: Allergies Allergy/AdvReac Type Severity Reaction Status Date / Time No Known Allergies Allergy Verified 03/22/19 17:19 - Home Medications Home Medications: Ambulatory Orders Omeprazole [Prilosec (RX)] 40 mg PO DAILY #0 capsule. 05/20/13 Ranitidine HCl [Zantac] 150 mg PO BID PRN #10 tablet 05/20/13 Simvastatin [Zocor -] 10 mg PO HS #0 tablet 05/20/13 Methadone [Dolophine -] 90 mg PO DAILY@0900 #30 tablet MDD 1 08/30/18 Methylnaltrexone [place] [Relistor -] 12 mg SQ DAILY #30 kit 08/30/18 Quetiapine Fumarate [Seroquel] 300 mg PO HS #30 tablet 09/16/18 Quetiapine Fumarate [Seroquel -] 50 mg PO HS #14 tablet 10/14/18 Citalopram Hydrobromide [Celexa -] 20 mg PO DAILY #14 tablet 02/26/19 Docusate Sodium [Colace -] 100 mg PO TID #90 capsule 02/26/19 Hydrochlorothiazide [Hctz -] 12.5 mg PO DAILY 30 Days #30 cap 02/26/19 Warfarin Na [Coumadin -] 10 mg PO DAILY@1800 #30 tablet 03/06/19 Polyethylene Glycol 3350 [Miralax (For Daily Use) -] 17 gm PO DAILY #1 bottle Warfarin Sodium [Coumadin] 2.5 mg PO DAILY #30 tablet 03/07/19 Physical Examination Vital Signs: Vital Signs Temperature 97.7 F 03/23/19 17:53 Pulse Rate 74 03/23/19 17:53 Respiratory Rate 18 03/23/19 17:53 Blood Pressure 113/69 03/23/19 17:53 O2 Sat by Pulse Oximetry (%) 98 03/23/19 09:00 Labs: CBC, BMP 03/23/19 06:20 03/23/19 06:20
[2019-03-23] MEDS ORDERED: GABAPENTIN 300 MG CAPSULE (FP) PO SCH (22:00)
[2019-03-23] MEDS ORDERED: QUEtiapine FUMARATE 300 MG TABLET PO SCH (22:00)
[2019-03-23] MEDS ORDERED: PATIENT'S OWN MEDICATION (NON-FORMULARY) (Simvastatin 10 MG) PO SCH (22:00)
[2019-03-23] MEDS ORDERED: ATORVASTATIN CA 10 MG TABLET (FP) PO SCH (22:00)
[2019-03-23] MEDS ORDERED: QUETIAPINE FUMARATE PO SCH (22:00)
[2019-03-23] MEDS ORDERED: QUEtiapine FUMARATE 50 MG TABLET PO SCH (22:00)
[2019-03-23] MEDS ORDERED: SODIUM PHOSPHATE/NA BIPHOS 133 ML ENEMA PR ONE (22:43)
[2019-03-23] MEDS: SENNOSIDES 8.6MG TABLET (FP) PO SCH (23:58)
[2019-03-24] MEDS ORDERED: METHADONE HCL 40 MG DISPERSABLE TABLET ONE (06:30)
[2019-03-24] MEDS ORDERED: METHADONE HCL 10 MG TABLET ONE (06:30)
[2019-03-24] MEDS: METHADONE 80 MG, METHADONE 10 MG PO SCH ×2 (06:36→10:34)
[2019-03-24] MEDS: DOCUSATE SODIUM 100 MG CAPSULE (FP) PO SCH ×2 (06:36→15:31)
[2019-03-24 09:05] LABS: INR 4.01 (0.83-1.09)
[2019-03-24] MEDS ORDERED: FLU VACCINE QUAD 60 MCG/0.5 ML (MDV 19-20) IM ONE ×2 (10:00)
[2019-03-24] MEDS ORDERED: PT OWN MED DRAWER 7, Y5N ONE (10:13)
[2019-03-24] MEDS: HYDROCHLOROTHIAZIDE 12.5 MG CAPSULE (FP) PO SCH (10:24)
[2019-03-24] MEDS: CITALOPRAM HYDROBROMIDE 20 MG TABLET (FP) PO SCH (10:33)
[2019-03-24] MEDS: SENNOSIDES 8.6MG TABLET (FP) PO SCH (10:56)
[2019-03-24] MEDS: Methylnaltrexone Bromide 12 MG/0.6 ML KIT SQ SCH (10:56)
[2019-03-24] MEDS: POLYETHYLENE GLYCOL 3350 119 GM BTL PO SCH (10:56)
[2019-03-24 15:18] VITALS: BP 137/74; PULSE 87; TEMP 99.1
== END 2019-03-24 16:49 | disposition home or self-care (01) | DRG 58 ==
LOC: JER 16:40 → JERBED 23:00 → J7W 03-23 04:42
PROVIDERS: ADMIT Internal Medicine; ATTEND Internal Medicine
DX: G25.81 Restless legs syndrome (principal); F11.20 Opioid dependence, uncomplicated; I10 Essential (primary) hypertension; D64.9 Anemia, unspecified; E78.00 Pure hypercholesterolemia, unspecified; E78.5 Hyperlipidemia, unspecified; F31.9 Bipolar disorder, unspecified; F17.210 Nicotine dependence, cigarettes, uncomplicated; G43.909 Migraine, unspecified, not intractable, without status migrainosus; K76.0 Fatty (change of) liver, not elsewhere classified; K21.9 Gastro-esophageal reflux disease without esophagitis; Z86.718 Personal history of other venous thrombosis and embolism
CPT/HCPCS: 36415; 70450-TC; 70551-TC; 80053; 81003; 82550; 82607; 82728; 83540; 83550; 84443; 84484; 85025; 85610; 85730; 86618; 90732; 93005; 93010; 93306-TC; 93880-TC; 99285-25; G0009; Q2036

== ENCOUNTER 2020-08-01 14:49 | Emergency (ER) | payer OTHER ==
[2020-08-01 15:10] VITALS: BP 109/68; PULSE 86; TEMP 97.5; BMI 45.9
[2020-08-01 18:11] LABS: BASO % 0.8 % (0-2.0); EOS % 0.8 % (0-4.5); HEMATOCRIT 37.1 % (32.4-45.2); HEMOGLOBIN 12.8 GM/dL (10.7-15.3); MCHC 34.5 g/dl (32.0-36.0); MEAN CELL VOLUME 89.9 fl (80-96); MEAN PLT VOLUME 9.4 fl (7.5-11.1); MONO % 7.3 % (3.8-10.2); NEUT % 66.1 % (42.8-82.8); RBC 4.13 M/mm3 (3.60-5.2); RDW 15.2 % (11.6-15.6)
[2020-08-01 18:15] LABS: INR 1.34 (0.83-1.09); PROTHROMBIN TIME (PATIENT) 16.4 SEC (9.7-13.0)
[2020-08-01 18:43] LABS: CHLORIDE 100 mmol/L (98-107); PLATELET COUNT 266 K/MM3 (134-434); PLATELET ESTIMATE ADEQUATE; POTASSIUM 3.8 mmol/L (3.5-5.1); SODIUM 138 mmol/L (136-145)
[2020-08-01 18:45] LABS: ALBUMIN 3.7 g/dl (3.4-5.0); ANION GAP 4 MMOL/L (8-16); BLOOD UREA NITROGEN 11.4 mg/dL (7-18); CALCIUM 9.1 mg/dL (8.5-10.1); CO2 34 mmol/L (21-32); GLUCOSE,RANDOM 93 mg/dL (74-106)
[2020-08-01 18:48] LABS: CREATININE 0.9 mg/dL (0.55-1.3); SGOT/AST 25 U/L (15-37); SGPT/ALT 33 U/L (13-61)
[2020-08-01 18:50] LABS: BILIRUBIN,TOTAL 0.5 mg/dL (0.2-1)
[2020-08-01 18:51] LABS: ALK PHOS 107 U/L (45-117)
[2020-08-01 18:52] LABS: TOT PROT 7.8 g/dl (6.4-8.2)
== END 2020-08-01 21:09 | disposition home or self-care (01) ==
LOC: JER 14:49
DX: M79.601 Pain in right arm (principal)
CPT/HCPCS: 36415; 71275-TC; 80053; 82550; 84484; 84702; 85025; 85610; 93005; 93010; 93970-TC; 99284-25; Q9967

== ENCOUNTER 2021-03-03 02:11 | Inpatient (IN) | payer OTHER ==
[2021-03-03] MEDS ORDERED: SODIUM CHLORIDE IV ONE (02:36)
[2021-03-03] MEDS ORDERED: ACETAMINOPHEN 1000 MG/100 ML VIAL (NON FORMULARY) IVPB ONE ×2 (02:37→18:46)
[2021-03-03] MEDS ORDERED: LACTATED RINGERS SOLUTION 1000 ML INFUS.BAG IV ONE ×2 (02:37→02:38)
[2021-03-03] MEDS ORDERED: DEXAMETHASONE SOD PHOSPHATE 10 MG/1 ML VIAL IVPUSH ONE (02:39)
[2021-03-03] MEDS ORDERED: PIPERACILLIN/TAZOB 4.5 GM 4.5 GM in DEXTROSE 5%-WATER 100 ML IVPB ONE (02:40)
[2021-03-03] MEDS ORDERED: DEXAMETHASONE SOD PHOSPHATE 10 MG/1 ML VIAL ONE (02:42)
[2021-03-03] MEDS ORDERED: ACETAMINOPHEN INJECTION 100 ML IVPB ONE ×2 (02:42→18:49)
[2021-03-03 02:51] LABS: HEMATOCRIT 33.9 % (32.4-45.2); HEMOGLOBIN 11.8 GM/dL (10.7-15.3); MCH 30.2 pg (25.7-33.7); MEAN CELL VOLUME 86.4 fl (80-96); MEAN PLT VOLUME 9.2 fl (7.5-11.1); PLATELET COUNT 180 10^3/uL (134-434); RBC 3.92 M/mm3 (3.60-5.2); RDW 14.7 % (11.6-15.6); VENOUS BASE EXCESS 2.3 mmol/L (-2-2); VENOUS O2 SATURATION 31.2 % (70-80); VENOUS PCO2 47.1 mmHg (38-52); VENOUS PH 7.391 (7.310-7.410); WHITE BLOOD COUNT 8.1 K/mm3 (4.0-10.0)
[2021-03-03 02:56] LABS: INR 1.45 (0.83-1.09); PROTHROMBIN TIME (PATIENT) 17.4 SEC (9.7-13.0)
[2021-03-03 02:59] LABS: ACTIVATED PTT 40.9 SECONDS (25.2-36.5)
[2021-03-03 03:08] LABS: CHLORIDE 98 mmol/L (98-107); SODIUM 137 mmol/L (136-145)
[2021-03-03 03:10] LABS: CALCIUM 8.2 mg/dL (8.5-10.1)
[2021-03-03 03:11] LABS: ALBUMIN 2.4 g/dl (3.4-5.0); ANION GAP 12 MMOL/L (8-16); BLOOD UREA NITROGEN 13.2 mg/dL (7-18); CO2 27 mmol/L (21-32); GLUCOSE,RANDOM 88 mg/dL (74-106)
[2021-03-03 03:13] LABS: SGPT/ALT 47 U/L (13-61)
[2021-03-03 03:14] LABS: CREATININE 1.2 mg/dL (0.55-1.3); SGOT/AST 160 U/L (15-37)
[2021-03-03 03:15] LABS: BILIRUBIN,TOTAL 1.3 mg/dL (0.2-1); TOT PROT 7.1 g/dl (6.4-8.2)
[2021-03-03 03:16] LABS: ALK PHOS 108 U/L (45-117)
[2021-03-03] MEDS ORDERED: PIPERACILLIN/TAZOB 4.5 GM 4.5 GM/100 ML BAG IVPB ONE (03:23)
[2021-03-03 03:32] LABS: LACTIC ACID 3.8 mmol/L (0.4-2.0)
[2021-03-03 03:54] LABS: EPI CELLS >36 /uL (0-25.1); HYALINE CASTS 131 /uL (0-3.1); PH,URINE 5.5 (5.0-8.0); URINE APPEARANCE TURBID; URINE BILIRUBIN 2+ (NEGATIVE); URINE COLOR DK YELLOW; URINE GLUCOSE (UA) NEGATIVE (NEGATIVE); URINE KETONE NEGATIVE (NEGATIVE); URINE LEUK ESTERASE 1+ (NEGATIVE); URINE NITRITE POSITIVE (NEGATIVE); URINE PROTEIN 4+ (NEGATIVE); URINE RBC 66 /uL (0-23.9); URINE WBC 25 /uL (0-25.8)
[2021-03-03] MEDS ORDERED: LORazepam 2 MG/ML SDV VIAL IVPUSH ONE (03:57)
[2021-03-03] MEDS ORDERED: CEFTRIAXONE 1 GM in DEXTROSE 5%-WATER - 50 ML IVPB ONE (04:03)
[2021-03-03] MEDS ORDERED: ENOXAPARIN NA (PORCINE) 100 MG/1 ML DISP.SYRIN SQ ONE ×2 (04:07→04:15)
[2021-03-03] MEDS ORDERED: AZITHROMYCIN IVPB 500 MG in DEXTROSE 5%-WATER - 250 ML IVPB ONE (04:08)
[2021-03-03] MEDS ORDERED: LORazepam 2 MG/ML SDV VIAL ONE (04:14)
[2021-03-03] MEDS ORDERED: AZITHROMYCIN IVPB 500 MG/250 ML BAG IVPB ONE (04:15)
[2021-03-03 04:17] LABS: LDH 487 U/L (84-246)
[2021-03-03 05:24] LABS: ANISOCYTOSIS 2+; MACROCYTOSIS 1+; PLATELET ESTIMATE NORMAL; TARGET CELLS 2+
[2021-03-03] MEDS ORDERED: METOPROLOL TARTRATE 50 MG TABLET (FP) PO ONE (05:24)
[2021-03-03] MEDS ORDERED: METOPROLOL TARTRATE 25 MG TABLET (FP) ONE (05:28)
[2021-03-03 05:35] LABS: URINE BACTERIA NONE SEEN /uL (0-1359)
[2021-03-03 06:11] LABS: ARTERIAL BLD GAS O2 SATURATION 88.9 % (95-98); ARTERIAL BLOOD GAS BASE EXCESS 1.1 mmol/L (-2-2); ARTERIAL BLOOD GAS PO2 57.3 mmHg (80-100); ARTERIAL BLOOD GAS pH 7.374 (7.350-7.450)
[2021-03-03 06:24] LABS: ALLENS TEST POSITIVE; VENT MODE S/T; VENT RATE 12
[2021-03-03 06:32] LABS: COCAINE, UR NEGATIVE (NEGATIVE); URINE AMPHETAMINES NEGATIVE (NEGATIVE); URINE BARBITURATES NEGATIVE (NEGATIVE)
[2021-03-03 06:33] LABS: PHENCYCLIDINE,URINE NEGATIVE (NEGATIVE)
[2021-03-03 06:35] LABS: METHADONE, UR POSITIVE (NEGATIVE); OPIATES, URI POSITIVE (NEGATIVE); URINE BENZODIAZEPINES POSITIVE (NEGATIVE)
[2021-03-03] MEDS: KCL 10 MEQ IVPB 10 MEQ/100 ML INFUS.BAG IVPB SCH ×3 (06:59→14:03)
[2021-03-03] MEDS: LACTATED RINGERS SOLUTION 1,000 ML/1,000 ML INFUS.BAG IV SCH (07:00)
[2021-03-03] MEDS ORDERED: NALOXONE HCL 0.4 MG/ML VIAL IVPUSH ONE ×2 (07:11→07:21)
[2021-03-03] MEDS ORDERED: NALOXONE HCL 0.4 MG/ML VIAL ONE (07:21)
[2021-03-03] MEDS ORDERED: RAPID SEQUENCE INTUBATION KIT NR ONE (07:24)
[2021-03-03] MEDS ORDERED: KETAMINE HCL 500 MG/10 ML VIAL ONE (07:34)
[2021-03-03] MEDS ORDERED: ROCURONIUM BROMIDE 100 MG/10 ML VIAL ONE (07:35)
[2021-03-03] MEDS: PHENYLEPHRINE NS PREMIX 50,000 MCG/500 ML BAG CVP SCH (09:00)
[2021-03-03] MEDS ORDERED: PIPERACILLIN/TAZOB 4.5 GM 4.5 GM in DEXTROSE 5%-WATER 100 ML IVPB SCH (09:00)
[2021-03-03] MEDS ORDERED: ROCURONIUM BROMIDE 50 MG/5 ML VIAL IV ONE (09:23)
[2021-03-03] MEDS ORDERED: KETAMINE HCL 200 MG/20 ML VIAL IVPUSH ONE (09:23)
[2021-03-03] MEDS ORDERED: PHENYLEPHRINE NS PREMIX 50,000 MCG/500 ML BAG ONE (09:25)
[2021-03-03] MEDS ORDERED: VASOPRESSIN 40 UNITS/100 ML BAG IV ONE (10:00)
[2021-03-03] MEDS ORDERED: VANCOMYCIN/WATER 1,250 MG/250 ML BAG IVPB ONE (10:30)
[2021-03-03] MEDS ORDERED: BENZOIN/ALOE VERA/STORAX/TOLU 58 ML BOTTLE ONE (11:26)
[2021-03-03] MEDS ORDERED: HEPARIN NA (PORCINE) 5,000 UNITS/ML 1ML VIAL IVPUSH PRN ×2 (11:47)
[2021-03-03 12:39] LABS: ARTERIAL BLD GAS O2 SATURATION 82.8 % (95-98); ARTERIAL BLOOD GAS BASE EXCESS -3.6 mmol/L (-2-2); ARTERIAL BLOOD GAS PO2 54.3 mmHg (80-100); ARTERIAL BLOOD GAS pH 7.257 (7.350-7.450)
[2021-03-03 12:51] LABS: ALLENS TEST POSITIVE
[2021-03-03 12:52] LABS: VENT MODE AC; VENT RATE 22
[2021-03-03] MEDS ORDERED: PT OWN MED DRAWER 7, Y5N ONE (13:01)
[2021-03-03] MEDS: HEPARIN - 25,000 UNIT in SODIUM CHLORIDE 495 ML IV SCH (13:30)
[2021-03-03] MEDS: PIPERACILLIN/TAZOB 3.375 GM 3.375 GM in DEXTROSE 5%-WATER - 50 ML IVPB SCH ×2 (14:00→18:12)
[2021-03-03] MEDS ORDERED: PIPERACILLIN/TAZOBACTAM 3.375 GM VIAL IVPB ONE ×3 (14:04→23:37)
[2021-03-03] MEDS ORDERED: DEXTROSE 5%-WATER - 50 ML IVPB ONE ×3 (14:05→23:37)
[2021-03-03] MEDS: FENTANYL NS IVPB 500 MCG/100 ML BAG IVPB SCH (14:57)
[2021-03-03] MEDS: PROPOFOL 1,000,000 MCG/100 ML VIAL IVPB SCH (14:57)
[2021-03-03] MEDS ORDERED: MIDAZOLAM IN 0.9 % SOD.CHLORID 1 MG/1 ML PLAST..BAG ONE (20:18)
[2021-03-03] MEDS: MIDAZOLAM 100 MG in SODIUM CHLORIDE 100 ML IVPB SCH (20:23)
[2021-03-03 20:49] LABS: URINE APPEARANCE CLEAR; URINE COLOR DK YELLOW; URINE GLUCOSE (UA) NEGATIVE (NEGATIVE)
[2021-03-03 20:54] LABS: URINE BILIRUBIN SMALL (NEGATIVE); URINE KETONE NEGATIVE (NEGATIVE); URINE NITRITE NEGATIVE (NEGATIVE); URINE PROTEIN 100 (NEGATIVE)
[2021-03-03 20:55] LABS: EPI CELLS 12.9 /uL (0-25.1); HYALINE CASTS 1.01 /uL (0-3.1); URINE BACTERIA 80.1 /uL (0-1359); URINE LEUK ESTERASE NEGATIVE (NEGATIVE); URINE RBC 58.6 /uL (0-23.9); URINE WBC 14.4 /uL (0-25.8)
[2021-03-03] MEDS: MUPIROCIN 2% TOPICAL OINTMENT FOR DECOLONIZATION NS SCH (21:08)
[2021-03-03] MEDS: CHLORHEXIDINE GLUCONATE 4% CLEANSER FOR DECOLONIZATION TP SCH (21:09)
[2021-03-03] MEDS ORDERED: SODIUM CHLORIDE 0.9% 500 ML INFUS.BAG IV ONE (21:39)
[2021-03-04 00:47] VITALS: BMI 39.9
[2021-03-04] MEDS: PIPERACILLIN/TAZOB 3.375 GM 3.375 GM in DEXTROSE 5%-WATER - 50 ML IVPB SCH ×3 (01:10→18:29)
[2021-03-04 01:14] LABS: HIV INTERPRETATION NEGATIVE (NEGATIVE)
[2021-03-04] MEDS ORDERED: ACETAMINOPHEN 1000 MG/100 ML VIAL (NON FORMULARY) IVPB ONE (01:45)
[2021-03-04] MEDS ORDERED: MIDAZOLAM IN 0.9 % SOD.CHLORID 1 MG/1 ML PLAST..BAG ONE ×2 (06:35→18:12)
[2021-03-04 06:45] LABS: HEMATOCRIT 28.3 % (32.4-45.2); HEMOGLOBIN 10.1 GM/dL (10.7-15.3); MCH 30.6 pg (25.7-33.7); MCHC 35.7 g/dl (32.0-36.0); MEAN CELL VOLUME 85.8 fl (80-96); MEAN PLT VOLUME 9.4 fl (7.5-11.1); PLATELET COUNT 227 10^3/uL (134-434); RDW 14.9 % (11.6-15.6); WHITE BLOOD COUNT 9.9 K/mm3 (4.0-10.0)
[2021-03-04 07:13] LABS: LACTIC ACID 2.2 mmol/L (0.4-2.0)
[2021-03-04 07:33] LABS: CHLORIDE 102 mmol/L (98-107); SODIUM 138 mmol/L (136-145)
[2021-03-04] MEDS ORDERED: PIPERACILLIN/TAZOB 4.5 GM 4.5 GM in DEXTROSE 5%-WATER 100 ML IVPB SCH (09:00)
[2021-03-04 09:29] LABS: ANISOCYTOSIS 0; MACROCYTOSIS 0; PLATELET ESTIMATE NORMAL
[2021-03-04 09:43] LABS: BLOOD UREA NITROGEN 21.9 mg/dL (7-18); CALCIUM 7.6 mg/dL (8.5-10.1)
[2021-03-04 09:47] LABS: CREATININE 1.1 mg/dL (0.55-1.3)
[2021-03-04 09:48] LABS: BILIRUBIN,TOTAL 1.6 mg/dL (0.2-1); TOT PROT 6.2 g/dl (6.4-8.2)
[2021-03-04] MEDS ORDERED: ENOXAPARIN NA (PORCINE) 40 MG/0.4 ML DISP.SYRIN SQ SCH (10:00)
[2021-03-04 10:02] LABS: ALBUMIN 1.6 g/dl (3.4-5.0)
[2021-03-04] MEDS ORDERED: PT OWN MED DRAWER 7, Y5N ONE (10:04)
[2021-03-04] MEDS ORDERED: PIPERACILLIN/TAZOBACTAM 3.375 GM VIAL IVPB ONE ×2 (10:04→17:50)
[2021-03-04] MEDS ORDERED: DEXTROSE 5%-WATER - 50 ML IVPB ONE ×2 (10:05→17:50)
[2021-03-04] MEDS: MUPIROCIN 2% TOPICAL OINTMENT FOR DECOLONIZATION NS SCH ×2 (12:26→22:13)
[2021-03-04] MEDS ORDERED: ACETAMINOPHEN INJECTION 100 ML IVPB ONE (14:43)
[2021-03-04] MEDS: PHENYLEPHRINE NS PREMIX 50,000 MCG/500 ML BAG CVP SCH (18:28)
[2021-03-04] MEDS: PROPOFOL 1,000,000 MCG/100 ML VIAL IVPB SCH (18:28)
[2021-03-04] MEDS: LACTATED RINGERS SOLUTION 1,000 ML/1,000 ML INFUS.BAG IV SCH (18:29)
[2021-03-04] MEDS: HEPARIN - 25,000 UNIT in SODIUM CHLORIDE 495 ML IV SCH (19:00)
[2021-03-04] MEDS: CHLORHEXIDINE GLUCONATE 4% CLEANSER FOR DECOLONIZATION TP SCH (22:13)
[2021-03-05] MEDS ORDERED: ACETAMINOPHEN 1000 MG/100 ML VIAL (NON FORMULARY) IVPB ONE (00:22)
[2021-03-05] MEDS ORDERED: PIPERACILLIN/TAZOBACTAM 3.375 GM VIAL IVPB ONE ×4 (00:23→21:52)
[2021-03-05] MEDS ORDERED: DEXTROSE 5%-WATER - 50 ML IVPB ONE ×4 (00:23→21:52)
[2021-03-05] MEDS: PIPERACILLIN/TAZOB 3.375 GM 3.375 GM in DEXTROSE 5%-WATER - 50 ML IVPB SCH ×3 (01:42→17:23)
[2021-03-05] MEDS ORDERED: MIDAZOLAM IN 0.9 % SOD.CHLORID 1 MG/1 ML PLAST..BAG ONE ×4 (05:37→16:02)
[2021-03-05 06:48] LABS: ARTERIAL BLD GAS O2 SATURATION 88.1 % (95-98); ARTERIAL BLOOD GAS BASE EXCESS -2.2 mmol/L (-2-2); ARTERIAL BLOOD GAS PO2 57.6 mmHg (80-100); ARTERIAL BLOOD GAS pH 7.334 (7.350-7.450)
[2021-03-05 06:56] LABS: ALLENS TEST POSITIVE; PT'S TEMP 37 C; VENT MODE A/C; VENT RATE 22
[2021-03-05 07:57] LABS: HEMATOCRIT 28.4 % (32.4-45.2); HEMOGLOBIN 10.4 GM/dL (10.7-15.3); MCH 31.8 pg (25.7-33.7); MCHC 36.7 g/dl (32.0-36.0); MEAN CELL VOLUME 86.6 fl (80-96); MEAN PLT VOLUME 10.1 fl (7.5-11.1); PLATELET COUNT 274 10^3/uL (134-434); RBC 3.28 M/mm3 (3.60-5.2); RDW 14.9 % (11.6-15.6); WHITE BLOOD COUNT 15.4 K/mm3 (4.0-10.0)
[2021-03-05] MEDS ORDERED: FENTANYL IVPB 500 MCG/100 ML BAG IVPB ONE (08:01)
[2021-03-05] MEDS: PROPOFOL 1,000,000 MCG/100 ML VIAL IVPB SCH ×2 (08:46→16:24)
[2021-03-05] MEDS: FENTANYL NS IVPB 500 MCG/100 ML BAG IVPB SCH ×2 (08:46→14:17)
[2021-03-05 08:48] LABS: ALBUMIN 1.4 g/dl (3.4-5.0); BILIRUBIN,TOTAL 2.2 mg/dL (0.2-1); BLOOD UREA NITROGEN 30.8 mg/dL (7-18); CALCIUM 7.1 mg/dL (8.5-10.1); CREATININE 1.2 mg/dL (0.55-1.3); MAGNESIUM 1.8 mg/dL (1.8-2.4); PHOSPHOROUS 4.7 mg/dL (2.5-4.9); TOT PROT 5.5 g/dl (6.4-8.2)
[2021-03-05] MEDS ORDERED: PT OWN MED DRAWER 7, Y5N ONE (09:11)
[2021-03-05] MEDS: MUPIROCIN 2% TOPICAL OINTMENT FOR DECOLONIZATION NS SCH ×2 (09:18→21:48)
[2021-03-05 09:58] LABS: ANISOCYTOSIS 1+; MACROCYTOSIS 0; PLATELET ESTIMATE NORMAL; TARGET CELLS 1+; TEAR DROP CELLS 1+
[2021-03-05] MEDS: ENOXAPARIN NA (PORCINE) 100 MG/1 ML DISP.SYRIN SQ SCH ×2 (12:21→22:00)
[2021-03-05 12:28] LABS: ALLENS TEST POSITIVE; ARTERIAL BLD GAS O2 SATURATION 83.5 % (95-98); ARTERIAL BLOOD GAS BASE EXCESS -4.9 mmol/L (-2-2); ARTERIAL BLOOD GAS PO2 56.1 mmHg (80-100); ARTERIAL BLOOD GAS pH 7.239 (7.350-7.450)
[2021-03-05 12:29] LABS: PT'S TEMP 100.5; VENT MODE A/C; VENT RATE 30
[2021-03-05] MEDS ORDERED: SODIUM CHLORIDE 1,000 ML IV SCH (13:45)
[2021-03-05] MEDS ORDERED: LACTATED RINGERS SOLUTION 1,000 ML/1,000 ML INFUS.BAG IV SCH (13:45)
[2021-03-05] MEDS ORDERED: VECURONIUM BROMIDE 100 MG/100 ML BAG IVPB SCH (14:30)
[2021-03-05 16:16] LABS: ARTERIAL BLD GAS O2 SATURATION 63.5 % (95-98); ARTERIAL BLOOD GAS pH 7.221 (7.350-7.450)
[2021-03-05] MEDS: MIDAZOLAM 100 MG in SODIUM CHLORIDE 100 ML IVPB SCH (16:23)
[2021-03-05 16:24] LABS: PT'S TEMP 95.9; VENT MODE A/C; VENT RATE 36
[2021-03-05 16:26] LABS: ARTERIAL BLOOD GAS PO2 39.9 mmHg (80-100)
[2021-03-05 19:49] LABS: ARTERIAL BLD GAS O2 SATURATION 88.9 % (95-98); ARTERIAL BLOOD GAS BASE EXCESS -6.3 mmol/L (-2-2); ARTERIAL BLOOD GAS PO2 64.5 mmHg (80-100); ARTERIAL BLOOD GAS pH 7.246 (7.350-7.450)
[2021-03-05 19:51] LABS: ALLENS TEST POSITIVE; VENT MODE A/C; VENT RATE 36
[2021-03-05] MEDS: CHLORHEXIDINE GLUCONATE 4% CLEANSER FOR DECOLONIZATION TP SCH (21:48)
[2021-03-06] MEDS: LACTATED RINGERS SOLUTION 1,000 ML/1,000 ML INFUS.BAG IV SCH (00:36)
[2021-03-06] MEDS: PHENYLEPHRINE NS PREMIX 50,000 MCG/500 ML BAG CVP SCH (00:55)
[2021-03-06] MEDS: PIPERACILLIN/TAZOB 3.375 GM 3.375 GM in DEXTROSE 5%-WATER - 50 ML IVPB SCH ×2 (01:03→10:50)
[2021-03-06] MEDS ORDERED: ACETAMINOPHEN INJECTION 100 ML IVPB ONE (02:47)
[2021-03-06 02:57] VITALS: TEMP 99.8
[2021-03-06] MEDS ORDERED: MIDAZOLAM IN 0.9 % SOD.CHLORID 1 MG/1 ML PLAST..BAG ONE (05:47)
[2021-03-06 06:18] LABS: HEMOGLOBIN 9.8 GM/dL (10.7-15.3); MCHC 37.7 g/dl (32.0-36.0); MEAN PLT VOLUME 9.2 fl (7.5-11.1); PLATELET COUNT 293 10^3/uL (134-434); RBC 3.06 M/mm3 (3.60-5.2); RDW 14.8 % (11.6-15.6); WHITE BLOOD COUNT 18.3 K/mm3 (4.0-10.0)
[2021-03-06 06:32] LABS: ALBUMIN 1.1 g/dl (3.4-5.0); BLOOD UREA NITROGEN 39.2 mg/dL (7-18); CALCIUM 7.2 mg/dL (8.5-10.1)
[2021-03-06 06:35] LABS: CREATININE 1.8 mg/dL (0.55-1.3)
[2021-03-06 06:36] LABS: PHOSPHOROUS 6.2 mg/dL (2.5-4.9)
[2021-03-06 06:37] LABS: BILIRUBIN,TOTAL 2.3 mg/dL (0.2-1)
[2021-03-06] MEDS ORDERED: PT OWN MED DRAWER 7, Y5N ONE (09:31)
[2021-03-06] MEDS ORDERED: DEXTROSE 5%-WATER - 50 ML IVPB ONE (09:31)
[2021-03-06] MEDS ORDERED: PIPERACILLIN/TAZOBACTAM 3.375 GM VIAL IVPB ONE (09:31)
[2021-03-06 09:45] LABS: ANISOCYTOSIS 0; HELMET CELLS 0; HOWELL-JOLLY BODIES 0; MACROCYTOSIS 0; OVALOCYTE 0; PLATELET ESTIMATE NORMAL; ROULEAU 0; SICKELED CELLS 0; TARGET CELLS 0; TEAR DROP CELLS 0; TOXIC GRANULATION 0
[2021-03-06] MEDS: MUPIROCIN 2% TOPICAL OINTMENT FOR DECOLONIZATION NS SCH (10:49)
[2021-03-06] MEDS: ENOXAPARIN NA (PORCINE) 100 MG/1 ML DISP.SYRIN SQ SCH (10:50)
[2021-03-06] MEDS ORDERED: NOREPINEPHRINE D5W PREMIX 16,000 MCG/500 ML BAG IVPB SCH (12:45)
[2021-03-06] MEDS ORDERED: VASOPRESSIN 40 UNITS/100 ML BAG ONE (14:06)
[2021-03-06 14:12] LABS: ARTERIAL BLD GAS O2 SATURATION 50.4 % (95-98); ARTERIAL BLOOD GAS BASE EXCESS -7.7 mmol/L (-2-2); ARTERIAL BLOOD GAS pH 7.214 (7.350-7.450)
[2021-03-06] MEDS ORDERED: VASOPRESSIN 40 UNITS in SODIUM CHLORIDE 98 ML IVPB SCH (14:15)
[2021-03-06 14:17] LABS: ARTERIAL BLOOD GAS PO2 32.5 mmHg (80-100)
[2021-03-06] MEDS ORDERED: VASOPRESSIN 40 UNITS/100 ML BAG IVPB SCH (14:40)
[2021-03-06] MEDS ORDERED: EPINEPHrine 1:10,000 (P-F SYR) 1 MG/10 ML DISP.SYRIN ONE (16:46)
[2021-03-06 17:46] VITALS: BP 46/25; PULSE 42
== END 2021-03-06 19:43 | disposition expired | DRG 720 ==
LOC: JER 02:11 → JERBED 06:56 → JICU 08:25
PROVIDERS: ADMIT Internal Medicine Pulmonary Disease; ATTEND Internal Medicine Pulmonary Disease
PROC: 5A1945Z Respiratory Ventilation, 24-96 Consecutive Hours (ICD-10-PCS; principal; 2021-03-03)
PROC: 0BH17EZ Insertion of Endotracheal Airway into Trachea, Via Natural or Artificial Opening (ICD-10-PCS; 2021-03-03)
PROC: 05HN33Z Insertion of Infusion Device into Left Internal Jugular Vein, Percutaneous Approach (ICD-10-PCS; 2021-03-03)
PROC: B544ZZA Ultrasonography of Left Jugular Veins, Guidance (ICD-10-PCS; 2021-03-03)
DX: A41.9 Sepsis, unspecified organism (principal); J96.01 Acute respiratory failure with hypoxia; N17.0 Acute kidney failure with tubular necrosis; J69.0 Pneumonitis due to inhalation of food and vomit; A48.1 Legionnaires' disease; R65.21 Severe sepsis with septic shock; E87.2 Acidosis; M62.82 Rhabdomyolysis; D64.9 Anemia, unspecified; E78.5 Hyperlipidemia, unspecified; F03.90 Unspecified dementia, unspecified severity, without behavioral disturbance, psychotic disturbance, mood disturbance, and anxiety; F11.10 Opioid abuse, uncomplicated; F17.210 Nicotine dependence, cigarettes, uncomplicated; F31.9 Bipolar disorder, unspecified; F41.9 Anxiety disorder, unspecified; I10 Essential (primary) hypertension; K21.9 Gastro-esophageal reflux disease without esophagitis; I46.9 Cardiac arrest, cause unspecified
CPT/HCPCS: 36415; 36600; 71045-TC-FY; 71275-TC; 80048; 80053; 80307; 81003; 82550; 82553; 82728; 82803; 83605; 83615; 83735; 83874; 84100; 84443; 84484; 85025; 85610; 85730; 86140; 86850; 86900; 86901; 87040; 87070; 87086; 87205; 87389; 87899; 93005; 93010; 93970-TC; 94002; 99291; C9803; J0131; J1100; J1644; J3490; Q9967; U0003; U0005